=== PATIENT | male | born 1940 | race Caucasian/White ===

== ENCOUNTER → 2018-06-19 13:28 | Outpatient (CLI) | payer MEDICARE, SELFPAY ==
--- NOTE | 2018-06-19 13:47 | US_ITS ---
STUDY: SCROTUM ULTRASOUND REASON FOR EXAM: Male, 77 years old. Pain. TECHNIQUE: Ultrasound evaluation of the scrotum was performed with color Doppler and static baeza-scale imaging. COMPARISON: None. FINDINGS: RIGHT TESTICLE INTRATESTICULAR: There is a normal size of the right testicle. The right testicle measures 4.6 x 3.1 x 2.4 cm. There is a homogenous echotexture. There is normal arterial and normal venous vascularity. There is no demonstrated right testicular mass or cyst. EXTRATESTICULAR: The epididymis is enlarged and heterogeneous. The epididymis head measures 2.2 cm. There is increased (hyperemic) vascularity of the epididymis. There is no demonstrated epididymal cystic structure. There is a small hydrocele. There is no demonstrated varicocele. There is no demonstrated extratesticular mass or cyst. LEFT TESTICLE INTRATESTICULAR: There is a normal size of the left testicle. The left testicle measures 4.5 x 3.0 x 2.4 cm. There is a homogenous echotexture. There is normal arterial and normal venous vascularity. There is no demonstrated left testicular mass or cyst. EXTRATESTICULAR: The epididymis is normal in size. The epididymis head measures 1.2 cm. There is normal vascularity of the epididymis. There is no demonstrated epididymal cystic structure. There is a small hydrocele. There is no demonstrated varicocele. There is no demonstrated extratesticular mass or cyst. US/Testicular with Arterial Flow IMPRESSION: Normal bilateral testicles. Findings suggestive of right epididymitis. Small bilateral hydroceles. Electronically Signed: Rd Lomas MD at 14:50 EST , Service support ,
[2018-06-19 13:49] LABS: Absolute Lymphocyte Count 1.51 X10^3/ul (0.83-4.51); Absolute Neutrophil Count 3.1 X10^3/uL (2.0-7.7); Basophil# 0.02 X10^3/uL; Basophil% 0.4 % (0-1); Eosinophil# 0.35 X10^3/uL; Eosinophils% 6.4 % (0-5); Hematocrit 41.8 % (40-54); Hemoglobin 13.8 g/dl (13.0-16.5); Lymphocyte # 1.51 X10^3/ul (4.0); Lymphocyte % 27.8 % (19-41); Mean Corpuscular Hgb 30.9 pg (27.0-32.0); Mean Corpuscular Volume 93.7 fL (80-94); Mean Platelet Vol. 9.3 fl (6.2-12.0); Monocyte# 0.45 X10^3/uL; Monocyte% 8.3 % (0-10); Neutrophil # 3.09 X10^3/uL (2.7-7.7); Neutrophil % 56.9 % (47-70); Platelet Count 205 K/mm3 (150-450); RBC Distribution Width CV 13.7 % (11.6-14.6); RBC Distribution Width SD 46.6 fl (35.1-43.9); Red Blood Count 4.46 M/mm3 (4.6-6.2); White Blood Count 5.4 K/mm3 (4.4-11.0)
[2018-06-19 13:51] LABS: POSITIVE COUNT NO; POSITIVE DIFFERENTIAL NO; POSITIVE MORPHOLOGY NO
[2018-06-19 13:55] LABS: Erythrocyte Sedimentation Rate 12 mm/hr (0-20)
[2018-06-19 14:13] LABS: AST(SGOT) 24 U/L (15-37); Alanine Aminotransfer ALT/SGPT 25 U/L (16-61); Albumin, Serum 3.9 g/dL (3.2-5.0); Alkaline Phosphatase 100 U/L (45-117); Anion Gap 3 (5-15); BUN 12 mg/dL (7-18); BUN/Creat Ratio 13.7 RATIO (10-20); CRP < 2.90 mg/L (0.0-3.0); Calcium,Total 9.1 mg/dL (8.5-10.1); Chloride 105 mmol/L (98-107); Creatinine, Serum 0.88 mg/dL (0.70-1.30); EST Glomerular Filtration Rate 90 mL/min (>60); Est Glom Filt Rate - Afr Amer 108 mL/min (>60); Globulin 3.9 g/dL (2.2-4.2); Glucose 124 mg/dL (74-106); Potassium 4.2 mmol/L (3.5-5.1); Protein, Total 7.8 g/dL (6.4-8.2); Sodium Level 138 mmol/L (136-145)
== END ==
PROVIDERS: Family Provider Internal Medicine; PCP Internal Medicine; Referring Provider Nurse Practitioner Gerontology; Visit Provider Nurse Practitioner Gerontology
DX: N50.811 Right testicular pain (principal); R10.9 Unspecified abdominal pain
CPT/HCPCS: 36415; 76870; 80053; 85025; 85652; 86140; 93976

== ENCOUNTER → 2019-08-25 13:47 | Outpatient (CLI) | payer MEDICARE, SELFPAY ==
[2019-07-17 11:23] VITALS: BMI 28.0
--- NOTE | 2019-08-25 13:51 | US_ITS ---
STUDY: SCROTUM ULTRASOUND REASON FOR EXAM: Male, 78 years old. RT TESTICULAR PAIN TECHNIQUE: Ultrasound evaluation of the scrotum was performed with color Doppler and static baeza-scale imaging. COMPARISON: None. FINDINGS: RIGHT TESTICLE INTRATESTICULAR: There is a normal size of the right testicle. The right testicle measures 4.1 cm x 3.3 cm x 3.1 cm. There is a homogenous echotexture. There is normal arterial and normal venous vascularity. There is no demonstrated right testicular mass or cyst. EXTRATESTICULAR: The epididymis is normal in size. The epididymis head measures 1.6 cm x 1.1 cm x 1.0 cm. There is normal vascularity of the epididymis. There is no demonstrated epididymal cystic structure. There is a small hydrocele. There is no demonstrated varicocele. There is no demonstrated extratesticular mass or cyst. LEFT TESTICLE INTRATESTICULAR: There is a normal size of the left testicle. The left testicle measures 3.1 cm x 2.7 cm x 3.0 cm. There is a homogenous echotexture. There is normal arterial and normal venous vascularity. There is no demonstrated left testicular mass or cyst. EXTRATESTICULAR: The epididymis is normal in size. The epididymis head measures 1 cm x 1 cm x 0.8 cm. There is normal vascularity of the epididymis. There is no demonstrated epididymal cystic structure. There is a small hydrocele. There is no demonstrated varicocele. There is no demonstrated extratesticular mass or cyst. US/Testicular with Arterial Flow IMPRESSION: Small bilateral hydroceles. Electronically Signed: Sukhdeep Stewart, at 14:54 EST , Service support ,
--- NOTE | 2019-08-25 14:23 | CT_ITS ---
STUDY: CT ABDOMEN AND PELVIS WITHOUT CONTRAST REASON FOR EXAM: Male, 78 years old. PT STATED RT SIDE ABDOM PAIN, HX OF APPENDECTOMY RADIATION DOSAGE (If Supplied By Facility): CTDIvol = ( 10.31 ) mGy, DLP = ( 824.58 ) mGycm TECHNIQUE: Transaxial images were obtained from the dome of the diaphragm to the symphysis pubis without oral contrast, and without intravenous contrast. Sagittal and coronal images were reconstructed. Individualized dose optimization techniques were used for this CT. COMPARISON: Comparison is made with prior study dated December 04, 2013. FINDINGS: The visualized lung bases are unremarkable. Coronary artery calcification. Normal liver. There are multiple small gallstones. Normal spleen. Normal pancreas. Normal bilateral adrenal glands. Stable 2 cm cyst in the posterior medial aspect of the right kidney. There is a 3.2 cm x 3.5 cm cyst in the upper pole of the left kidney. Mild degree of left nonspecific perinephric stranding. Normal visualized stomach. Normal small intestine. There are multiple colonic diverticula consistent with diverticulosis. There are surgical clips in the region of the appendix consistent with a prior appendectomy. There is diffuse atherosclerotic calcification of the abdominal aorta. Mild dilatation of the distal abdominal aorta with a transverse dimension of 2.6 cm. Normal inferior vena cava. Normal retroperitoneum. Normal urinary bladder. There is enlargement of the prostate gland. It measures 4.2 cm x 5 cm. Small bilateral inguinal hernias containing fat. There are diffuse degenerative changes of the visualized lumbar spine. CT/Abdomen/Pelvis without Cont IMPRESSION: Stable examination. No acute abnormality is seen. Electronically Signed: Sukhdeep Stewart, at 14:51 EST , Service support ,
== END ==
PROVIDERS: PCP Internal Medicine; Referring Provider Nurse Practitioner; Visit Provider Nurse Practitioner
DX: N50.811 Right testicular pain (principal); R10.31 Right lower quadrant pain
CPT/HCPCS: 74176; 76870; 93976

== ENCOUNTER → 2019-12-14 11:19 | Outpatient (CLI) | payer MEDICARE, SELFPAY ==
[2019-11-30 10:59] VITALS: BMI 27.7
[2019-12-14 13:24] LABS: AST(SGOT) 26 U/L (15-37); Alanine Aminotransfer ALT/SGPT 30 U/L (16-61); Albumin, Serum 3.8 g/dL (3.2-5.0); Alkaline Phosphatase 109 U/L (45-117); Bilirubin, Direct 0.18 mg/dL (0.00-0.30); Cholesterol 144 mg/dL (200); Globulin 4.1 g/dL (2.2-4.2); High Density Lipoprotein 37 mg/dL; Protein, Total 7.9 g/dL (6.4-8.2); Triglycerides 72 mg/dL; Very Low Density Lipoprotein 14 mg/dL (5-40)
== END ==
PROVIDERS: PCP Internal Medicine; Referring Provider Internal Medicine Cardiovascular Disease; Visit Provider Internal Medicine Cardiovascular Disease
DX: E78.00 Pure hypercholesterolemia, unspecified (principal)
CPT/HCPCS: 36415; 80061; 80076

== ENCOUNTER → 2020-09-16 11:22 | Outpatient (CLI) | payer MEDICARE, SELFPAY ==
[2020-09-15 11:30] VITALS: BMI 25.2
--- NOTE | 2020-09-16 10:06 | RAD_ITS ---
STUDY: X-RAY CHEST REASON FOR EXAM: Male, 79 years old. Chest pain, pre-operative TECHNIQUE: PA and lateral views of the chest. COMPARISON: None. FINDINGS: There is hyperinflation of the lungs consistent with chronic obstructive lung disease (COPD). There is no demonstrated pleural abnormality. Normal size heart. Normal mediastinum and valente. There is prominence of the pulmonary hilar arteries without peripheral pulmonary vascular congestion, suggesting pulmonary hypertension. There is atherosclerotic calcification of the aortic arch with tortuosity. There are diffuse degenerative changes of the visualized thoracic spine. Normal visualized ribs, clavicles, and shoulders. There is no demonstrated abnormality of the visualized soft tissue structures of the upper abdomen. RAD/Chest PA and Lateral IMPRESSION: Hyperinflation. Findings in keeping with COPD. Electronically Signed: Sukhdeep Stewart MD at 12:52 EST , Service support ,
[2020-09-16 10:18] LABS: Absolute Lymphocyte Count 1.12 X10^3/uL (0.83-4.51); Basophil# 0.02 X10^3/uL; Basophil% 0.5 % (0-1); Eosinophil# 0.17 X10^3/uL; Eosinophils% 4.4 % (0-5); Hematocrit 39.1 % (40-54); Hemoglobin 13.5 g/dL (13.0-16.5); Lymphocyte # 1.12 X10^3/ul (4.0); Lymphocyte % 29.2 % (19-41); Mean Corp Hgb Conc 34.5 g/dL (32-36); Mean Corpuscular Hgb 33.9 pg (27.0-32.0); Mean Corpuscular Volume 98.2 fL (80-94); Mean Platelet Vol. 9.6 fl (6.2-12.0); Monocyte# 0.53 X10^3/uL; Monocyte% 13.8 % (0-10); NRBC Flagged by Analyzer 0 % (0-5); Neutrophil # 1.99 X10^3/uL (2.7-7.7); Neutrophil % 51.8 % (47-70); Platelet Count 169 K/mm3 (150-450); RBC Distribution Width SD 48.7 fl (35.1-43.9); Red Blood Count 3.98 M/mm3 (4.6-6.2); White Blood Count 3.8 K/mm3 (4.4-11.0)
[2020-09-16 10:27] LABS: International Normalized Ratio 1.1; Prothrombin Time (Protime)PT. 13.5 SECONDS (11.7-14.9)
[2020-09-16 10:28] LABS: Partial Thromboplast Time 34.5 Seconds (24.1-36.2)
[2020-09-16 10:47] LABS: Anion Gap 5 (5-15); BUN 12 mg/dL (7-18); BUN/Creat Ratio 13.3 RATIO (10-20); Calcium,Total 9.3 mg/dL (8.5-10.1); Chloride 107 mmol/L (98-107); EST Glomerular Filtration Rate 86 mL/min (>60); Est Glom Filt Rate - Afr Amer 104 mL/min (>60); Glucose 106 mg/dL (74-106); Potassium 4.1 mmol/L (3.5-5.1); Sodium Level 140 mmol/L (136-145)
[2020-09-20 12:41] VITALS: BMI 25.2
== END ==
PROVIDERS: Nurse Practitioner Family; PCP Internal Medicine; Referring Provider Internal Medicine Cardiovascular Disease; Visit Provider Internal Medicine Cardiovascular Disease
DX: Z01.812 Encounter for preprocedural laboratory examination (principal); I25.10 Atherosclerotic heart disease of native coronary artery without angina pectoris; E78.00 Pure hypercholesterolemia, unspecified; I10 Essential (primary) hypertension; Z79.899 Other long term (current) drug therapy; R07.9 Chest pain, unspecified
CPT/HCPCS: 36415; 71046; 80048; 85025; 85610; 85730

== ENCOUNTER → 2020-09-20 14:43 | Outpatient (CLI) | payer OTHER, SELFPAY ==
[2020-09-15 11:30] VITALS: BMI 25.2
== END ==
PROVIDERS: PCP Internal Medicine; Visit Provider Internal Medicine Cardiovascular Disease
DX: Z01.818 Encounter for other preprocedural examination (principal); R68.83 Chills (without fever); R53.1 Weakness; R53.83 Other fatigue
CPT/HCPCS: 87635; C9803; U0002

== ENCOUNTER → 2020-10-11 06:34 | Outpatient (CLI) | payer MEDICARE, SELFPAY ==
[2020-09-20 12:41] VITALS: BMI 25.2
--- NOTE | 2020-10-11 08:48 | STRESSREP ---
Stress Test Report Date: Procedure: Exercise tolerance test/imaging study Indications: Chest pain/shortness of breath/dyspnea; CAD; MVP; peripheral arterial occlusive disease Consent: Per the patient Procedure: The patient exercised on a Sandeep protocol for 7 minutes completing Stage II and 1 minute of Stage III achieving a peak heart rate of 142 bpm (100% predicted maximal heart rate) with a peak blood pressure 160/80 mmHg and a peak MET capacity of 8 METs. The baseline ECG demonstrated sinus bradycardia. The peak exercise ECG demonstrated approximately 1 to 2 mm of horizontal/downsloping ST segment depression in leads II, III, aVF, and V4 through V6 with gradual resolution towards baseline in recovery. There was an isolated PVC during exercise. The functional capacity was considered. There was no complaint of chest discomfort during exercise or recovery. The examination was discontinued secondary to dyspnea. Impression: 1. Technically adequate (percent predicted maximal heart rate greater than 85%) exercise tolerance test 2. Peak exercise ECG demonstrated approximately 1 to 2 mm of horizontal/downsloping ST segment depression in leads II, III, aVF, and V4 through V6 with gradual resolution towards baseline in recovery 3. There was an isolated PVC during exercise 4. Nuclear images pending Myocardial perfusion imaging study: Technique: The patient was injected with mCi of technetium 99m Cardiolite and subsequently rest SPECT Cardiolite nuclear imaging was obtained in the horizontal long, vertical long, and short axis views. The patient exercised on a Sandeep protocol for 7 minutes completing Stage II and 1 minute of Stage III achieving a peak heart rate of 142 bpm (100% predicted maximal heart rate) with a peak blood pressure 160/80 mmHg and a peak MET capacity of 8 METs. The patient was injected with mCi of technetium 99m Cardiolite and subsequently stress SPECT Cardiolite nuclear imaging was obtained in the horizontal long, vertical long, and short axis views. A gated Cardiolite study at peak stress was obtained. Interpretation: Rest and stress SPECT Cardiolite nuclear imaging status post realignment, normalization, and attenuation correction, demonstrates the appearance of relative uniform tracer uptake and myocardial perfusion appearing within normal limits. There is end systolic thickening and brightening. The gated Cardiolite study demonstrates myocardial thickening and inward wall motion. The reported LVEF is 65%. Impression: 1. Rest and stress SPECT Cardiolite nuclear imaging demonstrate relative uniform tracer uptake and myocardial perfusion appearing within normal limits. 2. The gated Cardiolite study reports an LVEF of 65%. This note was generated with [employer] software. It may contain incorrect words, spelling, and punctuation that were not noted in checking the note before signing.
== END ==
PROVIDERS: PCP Internal Medicine; Referring Provider Nurse Practitioner Family; Visit Provider Nurse Practitioner Family
DX: I25.10 Atherosclerotic heart disease of native coronary artery without angina pectoris (principal); R07.9 Chest pain, unspecified; I10 Essential (primary) hypertension; E78.00 Pure hypercholesterolemia, unspecified; I49.3 Ventricular premature depolarization; Z79.899 Other long term (current) drug therapy
CPT/HCPCS: 78452; 93017; A9500; A4216

== ENCOUNTER → 2020-11-22 13:50 | Outpatient (CLI) | payer OTHER, SELFPAY ==
[2020-11-07 10:00] VITALS: BMI 25.7
--- NOTE | 2020-11-22 13:53 | ECHOD_ITS ---
Reason For Study: SOB Procedure This was a 2D Doppler, Color Flow transthoracic echocardiogram. The study was technically difficult. Exam performed in department. Left Ventricle Normal LV size. Left ventricular systolic function is normal. The estimated ejection fraction is 65 %. No evidence for diastolic dysfunction. No regional wall motion abnormalities noted. Right Ventricle Normal RV size. Normal systolic function. Atria Normal left atrium. Normal right atrium. No doppler evidence for ASD. Mitral Valve There is no mitral annular calcification. Normal mitral valve. Trivial mitral valve insufficiency. Tricuspid Valve Normal tricuspid valve. Mild tricuspid valve insufficiency. Right ventricular systolic pressure estimated to be 21 mmHg. Aortic Valve Trisinus/trileaflet aortic valve. Normal aortic valve. Trivial aortic valve insufficiency. Pulmonic Valve The pulmonic valve is not well visualized. Trivial pulmonic valve insufficiency. Great Vessels Normal sized aortic root. Pericardium/Pleural No pericardial effusion. MMode/2D Measurements & Calculations LVIDd: 4.2 cm IVSd: 1.1 cm Ao root diam: 3.0 cm LVIDs: 2.3 cm LVPWd: 1.0 cm RVDd: 3.2 cm FS: 44.7 % LAV(MOD-bp): 35.9 ml LA A4 area: 12.9 cm2 LA dimension(2D): 3.5 cm LAV(MOD-bp) Indexed: 18.8 ml/m2 LAV(MOD-sp2): 43.9 ml LAV(MOD-sp4): 29.4 ml RA A4 area: 14.6 cm2 Doppler Measurements & Calculations MV E max buster: 61.8 cm/sec Lat Peak E' Buster: 5.2 cm/sec Med Peak E' Buster: 6.7 cm/sec MV A max buster: 105.1 cm/sec E/E' lat: 12.0 E/E' med: 9.2 MV E/A: 0.59 Ao V2 max: 148.6 cm/sec LV V1 max: 112.5 cm/sec PA V2 max: 138.5 cm/sec Ao max P.8 mmHg LV V1 max P.1 mmHg TR max buster: 213.6 cm/sec TR max P.4 mmHg ECHO/Echo Complete Interpretation Summary The study was technically difficult. Left ventricular systolic function is normal. The estimated ejection fraction is 65 %. Trivial mitral valve insufficiency. Mild tricuspid valve insufficiency. Trivial aortic valve insufficiency. Trivial pulmonic valve insufficiency. Right ventricular systolic pressure estimated to be 21 mmHg. No evidence for diastolic dysfunction. Ordering Physician: Bonilla Reyes/Dhaval Armenta Referring Physician: Radha Olivas M.D. Performed By: Bianca Du RDCS
== END ==
PROVIDERS: PCP Internal Medicine; Referring Provider Nurse Practitioner Family; Visit Provider Nurse Practitioner Family
DX: I25.10 Atherosclerotic heart disease of native coronary artery without angina pectoris (principal); E78.00 Pure hypercholesterolemia, unspecified; I10 Essential (primary) hypertension; I05.9 Rheumatic mitral valve disease, unspecified; R06.00 Dyspnea, unspecified; R06.02 Shortness of breath
CPT/HCPCS: 93306

== ENCOUNTER 2021-03-17 13:14 | Emergency (ER) | payer MEDICARE, SELFPAY ==
[2021-03-17 13:15] VITALS: BP 151/77; PULSE 61; RESP 20; TEMP 36.8; BMI 25.2
--- NOTE | 2021-03-17 14:18 | ED.VIS.GI ---
HPI HPI - GI History of Present Illness Chief Complaint: Constipation Informant: patient Abdominal Pain/Flank Pain Onset: Yesterday Context: Gradual Onset Timing: Continuous Quality: Aching Location: - (Rectal pain) Current Severity: Mild Maximum Severity: Moderate Worsened by: - (Type had a bowel movement and attempt at self disimpaction) Relieved by: Nothing Nausea/Vomiting/Emesis GI Symptom: Negative for Nausea and Vomiting Diarrhea/Melena/Hematochezia GI Symptom: Negative for Diarrhea, Melena and Hematochezia Associated Symptoms Associated Symptoms: Negative for Dysuria, Frequency and Hematuria Narrative Narrative: Patient is an elderly male who presents with abdominal distention, bloating and inability to have a bowel movement. He is passing gas. He is status post appendectomy. Not on anticoagulant. He has no other complaints. Prior similar symptoms: Yes Recent Illness/Hospitalization: No PFSH PFS Medical History (Updated 03/17/21 @ 14:[address] Alexis Lopez MD) Abdominal aortic aneurysm (AAA) Adverse drug reaction Atherosclerotic heart disease of [place] coronary artery without angina pectoris Atherosclerotic heart disease of [place] coronary artery without angina pectoris Back pain CAD (coronary artery disease) Coronary atherosclerosis of [place] coronary vessel Essential hypertension Family history of CVA Hay fever History of left heart catheterization (LHC) (~10/24/99) Hyperlipidemia Hypertension Limb weakness Long-term use of high-risk medication Mitral valve disorder ASHLEY (obstructive sleep apnea) Premature ventricular contraction Pure hypercholesterolemia Home Medications aspirin 81 mg PO DAILY@0800 04/28/13 [History Last Taken 05/03/13 22:00 1] nitroglycerin 0.4 mg sublingual tablet 0.4 mg SL Q5-15M PRN #25 tab 11/30/19 [Rx Last Taken Unknown] lisinopril 5 mg tablet 5 mg PO DAILY #90 tab 03/14/20 [Rx Last Taken Unknown] isosorbide mononitrate 30 mg tablet,extended release 24 hr 30 mg PO DAILY #90 tablet 10/04/20 [Rx Last Taken Unknown] atenolol 25 mg tablet 25 mg PO DAILY tablet 11/07/20 [History Last Taken Unknown] simvastatin 40 mg tablet See Rx Instructions .ROUTE .COMPLEX #90 tablet 11/21/20 [Rx Last Taken Unknown] Allergy/AdvReac Type Severity Reaction Status Date / Time ciprofloxacin [From Cipro] Allergy Hives Verified 11/07/20 10:06 atorvastatin [From Lipitor] AdvReac Intermediate Myalgias Verified 11/07/20 10:06 lovastatin [From Mevacor] AdvReac Intermediate Myalgias Verified 11/07/20 10:06 Family History Father CAD (coronary artery disease) Diabetes Cancer prostate Sister CVA (cerebral vascular accident) Mother Emphysema, unspecified Surgical History History of cystoscopy History of hernia surgery Hx of appendectomy Social History (Updated 03/17/21 @ 14:[address] Alexis Lopez MD) household members: spouse Smoking Status: Never smoker how long ago did patient quit smokin years ago alcohol intake: current details: rare substance use type: does not use caffeine: Yes Type: coffee Number of servings: 1 ROS ROS ED Constitutional Constitutional ED: Denies chills, fever(s) or subjective ENT ENT ED: Denies ear pain or rhinorrhea Cardiovascular Cardiovascular: Denies chest pain or palpitations Respiratory/Chest Respiratory/Chest: Denies cough or dyspnea Gastrointestinal Gastrointestinal: Reports abdominal pain and constipation; Denies diarrhea, melena, nausea or vomiting Genitourinary Genitourinary ED: Denies dysuria, hematuria or urinary frequency Neurologic Neurologic: Denies paresthesias or weakness Hematologic/Lymphatic Hematologic/Lymphatic: Denies easy bleeding or easy bruising EXAM Physical Exam Const Vital Signs: 03/17/21 13:15 Temperature 98.2 F Temperature Source Temporal Pulse Rate 61 Respiratory Rate 20 H Blood Pressure 151/77 H Blood Pressure Mean 101 Positive well nourished and well developed General Appearance ED: well developed HEENT normocephalic and atraumatic Eyes PERRL and EOMs intact bilaterally General Eye ED: Negative for pale conjunctiva or scleral icterus Neck no lymphadenopathy, supple and no JVD Resp normal respiratory effort and clear to auscultation bilaterally Cardio regular rate, regular rhythm, S1 normal heart sound, S2 normal heart sound and no murmurs GI no masses; Negative for non-tender or non-distended GI Narrative: Patient has no fissures, fistulas or hemorrhoids. Digital exam reveals brown stool. He is impacted. Inspection: abdominal distention Auscultation: hypoactive bowel sounds; Negative for normoactive bowel sounds Palpation: soft and tender; Negative for guarding, rigid or rebound tenderness present Back/Spine no CVA tenderness Cervical Spine: Negative for cervical spine tenderness Thoracic Spine / Upper Back: Negative for thoracic spinal tenderness Lumbar Spine / Lower Back: Negative for lumbar spinal tenderness Extremity full ROM General Extremety ED: Negative for edema General Extremity: Negative for edema Neuro CN's II-XII intact bilaterally and no sensory deficits noted Sensorium / Orientation: alert, oriented to person, oriented to place and oriented to time Motor Exam: strength 5/5 throughout Psych mental status grossly normal and thought process normal Skin no wounds Lesions: no lesions Rashes: no rashes MDM MDM MDM Narrative Medical decision making narrative: Patient head is a fecal impaction. He reports watery stools most likely due to encopresis. Since patient has brown stool is impacted he was digitally disimpacted. He will be discharged to home. Discharge Plan Triage Chief Complaint: Constipation ED Provider: Alexis Lopez Dx/Rx/DC Orders Clinical Impression: Fecal impaction in rectum Instructions: ED Fecal Impaction, Treated Prescriptions: No Action nitroglycerin 0.4 mg tablet, sublingual 0.4 mg SL Q5-15M PRN (Reason: chest pain) Qty: 25 RF: 3 atenolol 25 mg tablet 25 mg PO DAILY RF: 0 aspirin 81 MG tablet 81 mg PO DAILY@0800 RF: 0 lisinopril 5 mg tablet 5 mg PO DAILY Qty: 90 RF: 3 isosorbide mononitrate 30 mg tablet extended release 24 hr 30 mg PO DAILY Qty: 90 RF: 3 simvastatin 40 mg tablet See Rx Instructions .ROUTE .COMPLEX Qty: 90 RF: 3 Primary Care Provider: Radha Olivas Referrals: Radha Olivas, [Primary Care Provider] - 3-5 Days if not improving Activity Restrictions/Additional Instructions: 1. Metamucil or MiraLAX 3 times a day for the next week 2. Starting the second week recommend MiraLAX or Metamucil twice a day Disposition Disposition: Home, Self Care
[2021-03-17 14:34] VITALS: RESP 18
== END 2021-03-17 14:40 | disposition home or self-care (01) ==
LOC: ED 14:32
PROVIDERS: Emergency Provider Emergency Medicine; PCP Internal Medicine
DX: K56.41 Fecal impaction (principal); I25.10 Atherosclerotic heart disease of native coronary artery without angina pectoris; I10 Essential (primary) hypertension; E78.5 Hyperlipidemia, unspecified; G47.33 Obstructive sleep apnea (adult) (pediatric); E78.00 Pure hypercholesterolemia, unspecified; Z79.82 Long term (current) use of aspirin; Z90.49 Acquired absence of other specified parts of digestive tract; Z79.899 Other long term (current) drug therapy; Z87.891 Personal history of nicotine dependence
CPT/HCPCS: 99282

== ENCOUNTER 2021-08-31 07:14 | Outpatient (CLI) | payer MEDICARE, SELFPAY ==
--- NOTE | 2021-08-31 07:33 | CT_ITS ---
EXAM: CT NECK WITH INTRAVENOUS CONTRAST : 1940 CLINICAL INDICATION: CHEEK MASS -- . TECHNIQUE: Helically acquired images were obtained of the neck with intravenous contrast. This CT exam was performed using one or more of the following dose reduction techniques: automated exposure control, adjustment of the mA and/or kV according to patient size, and/or use of iterative reconstruction technique. This report was created using [employer] report generation technology. CONTRAST: IV 100mL Isovue-300 COMPARISON: November 19, 2011 FINDINGS: NASOPHARYNX: Unremarkable. SUPRAHYOID NECK: Unremarkable. Oropharynx, oral cavity, parapharyngeal space and retropharyngeal space are unremarkable. INFRAHYOID NECK: Unremarkable. The larynx, hypopharynx and supraglottis are unremarkable. SUBMANDIBULAR/PAROTID GLANDS: Unremarkable. Glands are normal in size. THYROID: Unremarkable. No enlarged or calcified nodules. BONES/JOINTS: No acute fracture. SOFT TISSUES: Unremarkable. VASCULATURE: No acute findings. LYMPH NODES: Unremarkable. No lymphadenopathy. LUNG APICES: Unremarkable as visualized. CT/Soft Tissue Neck WITH Contrast IMPRESSION: 1. No evidence of soft tissue mass. 2. Unremarkable soft tissues of the neck. Individualized dose optimization techniques were used for this CT. at 1130 Reported and signed by: Junior Morse MD Electronically Signed: Junior Morse MD at 11:28 EST ,
[2021-08-31 07:37] LABS: Absolute Lymphocyte Count 1.27 X10^3/uL (0.83-4.51); Absolute Neutrophil Count 1.6 X10^3/uL (2.0-7.7); Basophil# 0.02 X10^3/uL; Basophil% 0.6 % (0-1); Eosinophil# 0.14 X10^3/uL; Eosinophils% 3.9 % (0-5); Hematocrit 40.2 % (40-54); Hemoglobin 13.3 g/dL (13.0-16.5); Lymphocyte # 1.27 X10^3/ul (0.83-4.51); Lymphocyte % 35.5 % (19-41); Mean Corp Hgb Conc 33.1 g/dL (32-36); Mean Corpuscular Hgb 32.8 pg (27.0-32.0); Mean Platelet Vol. 9.2 fl (6.2-12.0); Monocyte# 0.57 X10^3/uL; Monocyte% 15.9 % (0-10); NRBC Flagged by Analyzer 0 % (0-5); Neutrophil # 1.57 X10^3/uL (2.7-7.7); Neutrophil % 43.8 % (47-70); Platelet Count 162 K/mm3 (150-450); RBC Distribution Width CV 13.6 % (11.6-14.6); RBC Distribution Width SD 49.7 fl (35.1-43.9); Red Blood Count 4.06 M/mm3 (4.6-6.2); White Blood Count 3.6 K/mm3 (4.4-11.0)
[2021-08-31 07:45] LABS: CREATININE FINGERSTICK 0.9 mg/dL (0.70-1.30); EGFR FINGERSTICK > 60.0000 mL/min (>60)
[2021-08-31 08:05] LABS: Anion Gap 3 (5-15); BUN 15 mg/dL (7-18); BUN/Creat Ratio 15.2 RATIO (10-20); Calcium,Total 9.1 mg/dL (8.5-10.1); Chloride 107 mmol/L (98-107); Creatinine, Serum 0.98 mg/dL (0.70-1.30); EST Glomerular Filtration Rate 78 mL/min (>60); Est Glom Filt Rate - Afr Amer 94 mL/min (>60); Glucose 120 mg/dL (74-106); Potassium 3.8 mmol/L (3.5-5.1); Sodium Level 138 mmol/L (136-145)
== END 2021-08-31 23:59 | disposition home or self-care (01) ==
LOC: CT 07:21
PROVIDERS: PCP Internal Medicine; Referring Provider Internal Medicine; Visit Provider Internal Medicine
DX: R22.0 Localized swelling, mass and lump, head (principal)
CPT/HCPCS: 36415; 70491; 80048; 85025; Q9967

== ENCOUNTER 2021-09-25 10:46 | Outpatient (CLI) | payer MEDICARE, SELFPAY ==
--- NOTE | 2021-09-26 | ASPOS_PTH ---
PATIENT: YAIR MCCORD LOC: [facility] U#:[id number] AGE/SX: 80/M ROOM: RE09/25/[address]: Dr. Chance Luz MD : 1940 BED: DIS: 09/25/2021 SPEC #: [id number] RECD: 09/26/21 10:46 STATUS: ALEX HEMPHILL #: [id number] JACQUES: 09/26/21 00:[address]: Chance Luz DEPT: CYTOLOGY RECD BY: John Aguero ENTERED: 09/26/21 10:47 SP TYPE: ASP HERE OTHR DR: Dr. Radha Olivas, DO Tissues: Parotid gland, NOS Procedures: Surgery Specimen Level IV Cytology Other Fine Needle Asp on Site HEADER OPERATION: Left parotid mass, fine needle aspiration PRE-OP DIAGNOSIS: Left parotid mass TISSUE SUBMITTED: Left parotid mass DIAGNOSIS CYTOLOGY Fine needle aspiration, left parotid mass (smears and cell block): Chronic inflammation. Crystalloid debris. Negative for malignant cells. See comment. AM:tsering 09/27/2021 COMMENT The specimen is evaluated at the time of FNA by Dr. Santoyo. Immediate Evaluation = Mild chronic inflammation. The smears contain mild chronic inflammatory cells associated with benign salivary gland tissue. In the background, there is abundant crystalloid debris consistent with amylase crystalloids. The findings are suggestive of sialadenitis and possibly associated cyst. Clinical correlation is suggested. CYTOLOGY STUDY Slides are reviewed. CYTOLOGY GROSS Received is 0.25 ml of yellow material labeled with the patient's name, and designated left parotid mass. Four imprints and two paps are made from the submitted fluid and the rest is added to CytoLyt for cell block preparation. Submitted for cytology study. / AM:tsering 09/26/2021 TC:3 CPT: 74801, 42467, 64105, 20221
== END 2021-09-25 23:59 | disposition home or self-care (01) ==
LOC: LAB 09-27 08:48
PROVIDERS: PCP Internal Medicine; Referring Provider Otolaryngology; Visit Provider Otolaryngology
DX: R22.0 Localized swelling, mass and lump, head (principal)
CPT/HCPCS: 10021; 88161; 88305

== ENCOUNTER 2021-10-04 13:56 | Outpatient (CLI) | payer MEDICARE, SELFPAY ==
[2021-10-04 14:36] LABS: Absolute Lymphocyte Count 1.33 X10^3/uL (0.83-4.51); Absolute Neutrophil Count 7.3 X10^3/uL (2.0-7.7); Basophil# 0.01 X10^3/uL; Basophil% 0.1 % (0-1); Eosinophils% 0.9 % (0-5); Hematocrit 40.2 % (40-54); Hemoglobin 13.7 g/dL (13.0-16.5); Lymphocyte # 1.33 X10^3/ul (0.83-4.51); Mean Corp Hgb Conc 34.1 g/dL (32-36); Mean Corpuscular Hgb 32.9 pg (27.0-32.0); Mean Corpuscular Volume 96.6 fL (80-94); Mean Platelet Vol. 9.8 fl (6.2-12.0); Monocyte# 2.29 X10^3/uL; Monocyte% 20.7 % (0-10); NRBC Flagged by Analyzer 0 % (0-5); Neutrophil # 7.29 X10^3/uL (2.7-7.7); Neutrophil % 65.8 % (47-70); POSITIVE DIFFERENTIAL YES; Platelet Count 166 K/mm3 (150-450); RBC Distribution Width CV 13.8 % (11.6-14.6); Red Blood Count 4.16 M/mm3 (4.6-6.2); White Blood Count 11.1 K/mm3 (4.4-11.0)
[2021-10-04 14:38] LABS: Differential Indicated SCAN CRITERIA MET
[2021-10-04 15:47] LABS: Thyroid Stim Hormone (TSH) 0.74 uIU/mL (0.358-3.74)
[2021-10-06 11:41] LABS: Pathologist Review Reviewed
== END 2021-10-04 23:59 | disposition home or self-care (01) ==
PROVIDERS: Nurse Practitioner Family; PCP Internal Medicine; Visit Provider Internal Medicine
DX: R06.00 Dyspnea, unspecified (principal); R53.83 Other fatigue; I25.10 Atherosclerotic heart disease of native coronary artery without angina pectoris; E78.00 Pure hypercholesterolemia, unspecified; I10 Essential (primary) hypertension; R22.0 Localized swelling, mass and lump, head
CPT/HCPCS: 36415; 83880; 84439; 84443; 85025

== ENCOUNTER → 2022-05-19 | Outpatient (CLI) | payer MEDICARE, SELFPAY ==
[2022-05-19 07:50] LABS: Absolute Lymphocyte Count 1.07 X10^3/uL (0.83-4.51); Absolute Neutrophil Count 1.5 X10^3/uL (2.0-7.7); Basophil# 0.01 X10^3/uL; Basophil% 0.3 % (0-1); Hematocrit 37.9 % (40-54); Hemoglobin 12.7 g/dL (13.0-16.5); Lymphocyte # 1.07 X10^3/ul (0.83-4.51); Lymphocyte % 31.8 % (19-41); Mean Corp Hgb Conc 33.5 g/dL (32-36); Mean Corpuscular Hgb 33.6 pg (27.0-32.0); Mean Corpuscular Volume 100.3 fL (80-94); Mean Platelet Vol. 9.5 fl (6.2-12.0); Monocyte# 0.64 X10^3/uL; NRBC Flagged by Analyzer 0 % (0-5); Neutrophil # 1.52 X10^3/uL (2.7-7.7); Neutrophil % 45.3 % (47-70); Platelet Count 134 K/mm3 (150-450); RBC Distribution Width CV 13.8 % (11.6-14.6); RBC Distribution Width SD 51.5 fl (35.1-43.9); Red Blood Count 3.78 M/mm3 (4.6-6.2); White Blood Count 3.4 K/mm3 (4.4-11.0)
[2022-05-19 08:06] LABS: Erythrocyte Sedimentation Rate 22 mm/hr (0-20)
[2022-05-19 08:24] LABS: AST(SGOT) 21 U/L (15-37); Alanine Aminotransfer ALT/SGPT 20 U/L (16-61); Albumin, Serum 3.9 g/dL (3.2-5.0); Alkaline Phosphatase 98 U/L (45-117); Anion Gap 5 (5-15); BUN 20 mg/dL (7-18); BUN/Creat Ratio 24.6 RATIO (10-20); CRP < 2.90 mg/L (0.0-3.0); Calcium,Total 9.4 mg/dL (8.5-10.1); Chloride 109 mmol/L (98-107); Creatinine, Serum 0.81 mg/dL (0.70-1.30); EST Glomerular Filtration Rate 97 mL/min (>60); Est Glom Filt Rate - Afr Amer 117 mL/min (>60); Ferritin 51 ng/mL (26-388); Globulin 3.9 g/dL (2.2-4.2); Glucose 108 mg/dL (74-106); Iron 103 ug/dL (65-175); Iron Binding Capacity,Total 305 ug/dL (250-450); Potassium 3.8 mmol/L (3.5-5.1); Protein, Total 7.8 g/dL (6.4-8.2); Sodium Level 141 mmol/L (136-145); Thyroid Stim Hormone (TSH) 4.01 uIU/mL (0.358-3.74)
[2022-05-21 08:16] LABS: Vitamin B12 808 pg/mL (211-911)
== END | disposition home or self-care (01) ==
LOC: LAB 06:59
PROVIDERS: PCP Internal Medicine; Referring Provider Internal Medicine; Visit Provider Internal Medicine
DX: R53.83 Other fatigue (principal); E61.1 Iron deficiency
CPT/HCPCS: 36415; 80053; 82607; 82728; 83540; 83550; 84443; 85025; 85652; 86140

== ENCOUNTER 2022-05-20 09:28 | Emergency (ER) | payer OTHER, SELFPAY ==
[2022-05-20 09:29] VITALS: BP 140/68; PULSE 58; RESP 18; TEMP 36.2; O2SAT 100; BMI 24.7
[2022-05-20] MEDS: 0.9% Normal Saline 1,000 ML 999 ML IV (10:18)
--- NOTE | 2022-05-20 10:57 | ED.VIS.GI ---
HPI HPI - GI History of Present Illness Chief Complaint: Abd Pain Narrative Narrative: 81-year-old male presenting with right lower abdominal pain. He states this has been going on for about 24 hours. The pain comes and goes. He has not had any fever. No nausea or vomiting. He admits to occasional constipation for which she takes prune juice for. He is having bowel movements. He does not have any urinary complaints. He states he has distant history of kidney stone but has not had one in 12 or 13 years he believes. He does admit to intermittent nausea. Patient has history of appendectomy and hernia repair in the right lower abdomen. No history of bowel obstruction but does have history of fecal impaction. Patient states he had outpatient lab work drawn yesterday because he has been generally weak for months now. He has felt a little bit lightheaded at times. He states that the blood work showed that he had a little bit of anemia. [facility] Medical History Abdominal aortic aneurysm (AAA) Adverse drug reaction Atherosclerotic heart disease of [place] coronary artery without angina pectoris Atherosclerotic heart disease of [place] coronary artery without angina pectoris Back pain CAD (coronary artery disease) Coronary atherosclerosis of [place] coronary vessel Essential hypertension Family history of CVA Hay fever History of left heart catheterization (LHC) (~10/24/99) Hyperlipidemia Hypertension Limb weakness Long-term use of high-risk medication Mitral valve disorder ASHLEY (obstructive sleep apnea) Premature ventricular contraction Pure hypercholesterolemia Home Medications aspirin 81 mg tablet,delayed release 81 mg PO DAILY@0800 04/28/13 [History Last Taken 05/03/13 22:00 1] nitroglycerin 0.4 mg sublingual tablet 0.4 mg sublingual Q5-15M PRN chest pain #25 tabs 11/30/19 [Rx Last Taken Unknown] atenolol 25 mg tablet 25 mg PO DAILY #15 tabs 10/11/21 [Rx Last Taken Unknown] isosorbide mononitrate 30 mg tablet,extended release 24 hr 30 mg PO DAILY #90 tabs 10/11/21 [Rx Last Taken Unknown] multivitamin (Daily Multi-Vitamin tablet) 1 tab PO DAILY 02/01/22 [History Last Taken Unknown] lisinopril 5 mg tablet 5 mg PO DAILY #90 tabs 04/30/22 [Rx Last Taken Unknown] simvastatin 40 mg tablet 40 mg PO QHS 05/20/22 [History Last Taken Unknown] Allergy/AdvReac Type Severity Reaction Status Date / Time ciprofloxacin [From Cipro] Allergy Hives Verified 05/20/22 09:32 atorvastatin [From Lipitor] AdvReac Intermediate Myalgias Verified 05/20/22 09:32 lovastatin [From Mevacor] AdvReac Intermediate Myalgias Verified 05/20/22 09:32 Family History Father CAD (coronary artery disease) Diabetes Cancer prostate Sister CVA (cerebral vascular accident) Mother Emphysema, unspecified Surgical History History of cystoscopy History of hernia surgery Hx of appendectomy Social History household members: spouse Smoking Status: Never smoker how long ago did patient quit smokin years ago alcohol intake: current details: rare substance use type: does not use caffeine: Yes Type: coffee Number of servings: 1 ROS ROS ED Constitutional Constitutional ED: Denies chills or fever(s) ENT ENT ED: Denies rhinorrhea or sore throat Cardiovascular Cardiovascular: Denies chest pain or palpitations Respiratory/Chest Respiratory/Chest: Denies cough or dyspnea Gastrointestinal Gastrointestinal: Reports abdominal pain and nausea; Denies constipation, diarrhea or vomiting Genitourinary Genitourinary ED: Denies dysuria or hematuria Musculoskeletal Musculoskeletal: Denies arthralgias or back pain Integumentary Denies abscess Neurologic Neurologic: Denies headache(s) or paresthesias Psychiatric Psychiatric: Denies anxiety or depression EXAM Physical Exam Const Vital Signs: 05/20/22 09:29 Temperature 97.1 F L Temperature Source Temporal Pulse Rate 58 L Respiratory Rate 18 Blood Pressure 140/68 H Blood Pressure Mean 92 Pulse Ox 100 Oxygen Delivery Method Room Air Positive well nourished General Appearance ED: NAD; Negative for pallor HEENT Reports moist mucous membranes and dry mucous membranes normocephalic Mouth ED: Yes dry mucous membranes Mouth: dry mucous membranes Eyes PERRL and EOMs intact bilaterally Resp normal respiratory effort Cardio regular rate and regular rhythm GI non-tender, non-distended and no masses Back/Spine no CVA tenderness Neuro CN's II-XII intact bilaterally, moves all extremities and no sensory deficits noted Sensorium / Orientation: alert Psych mental status grossly normal and thought process normal Skin General Skin Exam: Negative for jaundice or pallor MDM MDM MDM Narrative Medical decision making narrative: Reviewed patient's blood work from yesterday. His white blood cell count 3.4 hemoglobin is 12.7, hematocrit 37.9, platelets 134. Creatinine was normal at 0.8, electrolytes unremarkable. Urinalysis negative for infection or occult blood. I did a CT of the abdomen pelvis IV contrast which shows no acute findings in the abdomen. This was discussed with the patient. At this point with a negative work-up I think he stable for discharge home. Return precautions were discussed. Impression: 1. Abdominal pain 2. Nausea 3. Generalized weak Lab Data Labs: Laboratory Results - last 24 hr 05/20/22 11:11 Urine Color Yellow Urine Clarity Clear Urine pH 6.5 Ur Specific [place] 1.015 Urine Protein 15 H Urine Glucose (UA) Normal Urine Ketones Negative Urine Occult Blood Negative Urine Nitrite Negative Urine Bilirubin Negative Urine Urobilinogen Normal Ur Leukocyte Esterase Negative Urine RBC 0 SEEN Urine WBC 0 SEEN Ur Squamous Epith Cells 0 SEEN Urine Bacteria 0 SEEN Urine Mucus 0 SEEN Radiography Diagnostic Testing: Clinical Impression(s) from Imaging Studies Abdomen/Pelvis CT 05/20/22 11:43 IMPRESSION: 1. No acute findings in the abdomen or pelvis. 2. Colonic diverticulosis without diverticulitis. 3. 2 tiny gallstones inside nondilated gallbladder fossa without pericholecystic fluid. This is unchanged. 4. Nonenhancing cysts in both kidneys are simple cysts. They are unchanged. No follow-up is needed. 5. Minimal degenerative anterolisthesis of L4 on L5, pronounced right L4-L5 degenerative facet arthropathy and moderate left L4-L5 degenerative facet arthropathy. 6. No significant interval change when compared to 08/25/2019. Electronically Signed: Carlos Lora MD at 12:44 EST , Discharge Plan Triage Chief Complaint: Abd Pain ED Provider: Shahid Salgado Dx/Rx/DC Orders Instructions: ED Abdominal Pain Unkn Cause Male... Prescriptions: No Action nitroglycerin 0.4 mg tablet, sublingual 0.4 mg SL Q5-15M PRN (Reason: chest pain) Qty: 25 3RF Rx Instructions: do not exceed 3 doses per episode multivitamin [Daily Multi-Vitamin] Tablet 1 tab PO DAILY aspirin 81 MG tablet 81 mg PO DAILY@0800 Label Comments: Heart Disease simvastatin 40 mg tablet 40 mg PO QHS isosorbide mononitrate 30 mg tablet extended release 24 hr 30 mg PO DAILY Qty: 90 3RF atenolol 25 mg tablet 25 mg PO DAILY Qty: 15 0RF lisinopril 5 mg tablet 5 mg PO DAILY Qty: 90 3RF Primary Care Provider: Radha Olivas Referrals: Radha Olivas DO [Primary Care Provider] - Disposition Disposition: Home, Self Care
[2022-05-20 11:23] LABS: Bacteria 0 SEEN /hpf (None Seen); Mucous, Urine 0 SEEN /hpf (<or=2+); Red Blood Cells-Urine 0 SEEN /hpf (0-5); Squamous Epithelial Cells - UA 0 SEEN /hpf (0-5); White Blood Cells 0 SEEN /hpf (0-5)
[2022-05-20 11:29] LABS: Color, Urine Yellow (Yellow); Glucose, Dipstick Normal (Normal); Ketone-Dipstick Negative (Negative); Leukocyte Esterase-Dipstick Negative /ul (Negative); Nitrite-Dipstick Negative (Negative); Occult Blood-Urine Negative /ul (Negative); Protein-Dipstick 15 mg/dl (Negative); Specific Gravity, Urine 1.015 (1.002-1.030); Urine Bilirubin Dipstick Negative (Negative); Urine Clarity Clear (Clear); Urine Urobilinogen Normal (Normal); Urine pH 6.5 (5.0 - 8.0)
--- NOTE | 2022-05-20 11:43 | CT_ITS ---
EXAM: CT ABDOMEN AND PELVIS WITH INTRAVENOUS CONTRAST CLINICAL INDICATION: RLQ abdominal pain TECHNIQUE: Helically acquired images were obtained of the abdomen and pelvis with intravenous contrast. This CT exam was performed using one or more of the following dose reduction techniques: automated exposure control, adjustment of the mA and/or kV according to patient size, and/or use of iterative reconstruction technique. This report was created using [employer] report generation technology. CONTRAST: 100 mL of IV [id number]. RADIATION DOSE: CTDIvol = 17.28 mGy, DLP = 840.04 mGy-cm COMPARISON: CT abdomen and pelvis without contrast 08/25/2019. FINDINGS: LOWER THORAX: Unremarkable. Lung bases are clear. No cardiomegaly. No significant pericardial effusion. ABDOMEN: LIVER: Unremarkable. Homogeneous. No focal mass. GALLBLADDER AND BILE DUCTS: At least 2 tiny gallstones without gallbladder dilatation. These gallstones were present previously. No gallbladder distention or wall edema. PANCREAS: Unremarkable. No focal cystic or solid mass. SPLEEN: Unremarkable. Normal size without focal cystic or solid mass. ADRENALS: Unremarkable. No nodules. KIDNEYS AND URETERS: Nonenhancing cysts in both kidneys. No stones or hydronephrosis in both kidneys. Normal renal size and position. STOMACH AND BOWEL: Scattered diverticula, more in the sigmoid colon but no diverticulitis. No stomach or bowel distention. PELVIS: APPENDIX: Postsurgical absence of the appendix. BLADDER: Unremarkable. REPRODUCTIVE: Unremarkable as visualized. No mass. ABDOMEN and PELVIS: INTRAPERITONEAL SPACE: Unremarkable. No ascites or other fluid collection. No free air. BONES/JOINTS: Minimal degenerative anterolisthesis of L4 on L5. Pronounced right L4-L5 degenerative facet arthropathy and moderate left L4-L5 degenerative facet arthropathy. No suspicious lytic or blastic abnormality. SOFT TISSUES: Unremarkable. No discrete abdominal or pelvic wall hernia. VASCULATURE: Calcified plaques along the abdominal aorta and iliac arteries. 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 LYMPH NODES: Unremarkable. No enlarged lymph nodes. CT/Abdomen/Pelvis W IV Cont ONLY IMPRESSION: 1. No acute findings in the abdomen or pelvis. 2. Colonic diverticulosis without diverticulitis. 3. 2 tiny gallstones inside nondilated gallbladder fossa without pericholecystic fluid. This is unchanged. 4. Nonenhancing cysts in both kidneys are simple cysts. They are unchanged. No follow-up is needed. 5. Minimal degenerative anterolisthesis of L4 on L5, pronounced right L4-L5 degenerative facet arthropathy and moderate left L4-L5 degenerative facet arthropathy. 6. No significant interval change when compared to 08/25/2019. Electronically Signed: Carlos Lora MD at 12:44 EST ,
[2022-05-20 14:41] VITALS: PULSE 62; RESP 17; O2SAT 100
== END 2022-05-20 14:43 | disposition home or self-care (01) ==
PROVIDERS: Emergency Provider Student in an Organized Health Care Education/Training Program; PCP Internal Medicine; Visit Provider Student in an Organized Health Care Education/Training Program
DX: R10.31 Right lower quadrant pain (principal); R53.1 Weakness; R11.0 Nausea; I25.10 Atherosclerotic heart disease of native coronary artery without angina pectoris; I10 Essential (primary) hypertension; Z87.442 Personal history of urinary calculi; I71.40 Abdominal aortic aneurysm, without rupture, unspecified; E78.5 Hyperlipidemia, unspecified; Z79.899 Other long term (current) drug therapy; Z79.82 Long term (current) use of aspirin; G47.33 Obstructive sleep apnea (adult) (pediatric); Z87.891 Personal history of nicotine dependence
CPT/HCPCS: 74177; 81001; 96360; 99283; Q9967

== ENCOUNTER → 2022-09-08 | Outpatient (CLI) | payer MEDICARE, SELFPAY ==
[2022-09-08 12:37] LABS: AST(SGOT) 19 U/L (15-37); Alanine Aminotransfer ALT/SGPT 18 U/L (16-61); Albumin, Serum 3.6 g/dL (3.2-5.0); Alkaline Phosphatase 101 U/L (45-117); Bilirubin, Direct 0.17 mg/dL (0.00-0.30); Cholesterol 133 mg/dL (200); Globulin 4.4 g/dL (2.2-4.2); High Density Lipoprotein 41 mg/dL; Triglycerides 55 mg/dL; Very Low Density Lipoprotein 11 mg/dL (5-40)
== END | disposition home or self-care (01) ==
PROVIDERS: PCP Internal Medicine; Visit Provider Nurse Practitioner Gerontology
DX: E78.00 Pure hypercholesterolemia, unspecified (principal); I25.10 Atherosclerotic heart disease of native coronary artery without angina pectoris; Z79.899 Other long term (current) drug therapy
CPT/HCPCS: 36415; 80061; 80076

== ENCOUNTER → 2023-04-05 | Outpatient (CLI) | payer MEDICARE, SELFPAY ==
[2023-04-05 16:13] LABS: PSA,Total - Annual Screen 3.14 ng/mL (0.00-4.00)
== END | disposition home or self-care (01) ==
LOC: MTLAB 12:34
PROVIDERS: PCP Internal Medicine; Referring Provider Internal Medicine; Visit Provider Internal Medicine
DX: Z12.5 Encounter for screening for malignant neoplasm of prostate (principal)
CPT/HCPCS: 36415; 84153; G0103

== ENCOUNTER 2023-07-31 12:09 | Observation (INO) | payer MEDICARE, SELFPAY ==
[2023-07-31] VITALS (7 sets, daily range): BP systolic 112–128; BP diastolic 59–69; PULSE 70–103; RESP 16–18; TEMP 36.7–37.2; O2SAT 94–98; BMI 22.5; BMI 23.0
--- NOTE | 2023-07-31 12:44 | ED.VIS.GI ---
HPI HPI - GI History of Present Illness Chief Complaint: Flank Pain Detail of Chief Complaint: Abdominal pain Informant: patient Narrative Narrative: Patient presents to the emergency department with right lower abdomen pain that started about a week ago. Patient states the pain severe at times and sometimes more mild right now it is more mild. He does describe some dysuria. He has history of enlarged prostate. He has remote history of kidney stones and thinks he may be passing a kidney stone. Patient has history of prior appendectomy and hernia repair. He had low-grade fever last night up to 99.5 and this morning as well. [facility] Medical History Abdominal aortic aneurysm (AAA) Actinic keratosis Adverse drug reaction Allergic rhinitis Atherosclerotic heart disease of [place] coronary artery without angina pectoris Atherosclerotic heart disease of [place] coronary artery without angina pectoris Back pain Benign hematuria Bilateral inguinal hernia without obstruction or gangrene CAD (coronary artery disease) Carotid stenosis Coronary atherosclerosis of [place] coronary vessel Cyst of left kidney Diverticulosis Essential hypertension Family history of CVA Gallstones GERD (gastroesophageal reflux disease) Hay fever History of left heart catheterization (LHC) (~10/24/99) Hypercholesterolemia Hyperlipidemia Hypertension Iron deficiency Kidney stones Limb weakness Long-term use of high-risk medication Macrocytosis Memory impairment Mitral valve disorder Mixed hyperlipidemia ASHLEY (obstructive sleep apnea) Other seborrheic keratosis Pancytopenia Pancytopenia Premature ventricular contraction Pure hypercholesterolemia Vitamin D deficiency Yeast infection of the skin Home Medications aspirin 81 mg tablet,delayed release 81 mg PO DAILY HEART HEALTH 04/28/13 [History Last Taken 05/03/13 22:00 1] atenolol 25 mg tablet 25 mg PO DAILY BLOOD PRESSURE #15 tabs 10/11/21 [Rx Last Taken Unknown] multivitamin (Daily Multi-Vitamin tablet) 1 tab PO DAILY HEALTH MAINTENANCE 02/01/22 [History Last Taken Unknown] simvastatin 40 mg tablet 20 mg PO QHS CHOLESTEROL 08/07/22 [History Last Taken Unknown] isosorbide mononitrate 30 mg tablet,extended release 24 hr 30 mg PO DAILY CHEST PAIN #90 tabs 11/12/22 [Rx Last Taken Unknown] losartan 25 mg tablet 25 mg PO DAILY BLOOD PRESSURE #90 tabs 03/22/23 [Rx Last Taken Unknown] nitroglycerin 0.4 mg sublingual tablet 0.4 mg sublingual Q5-15M PRN CHEST PAIN 07/31/23 [History Last Taken Unknown] Allergy/AdvReac Type Severity Reaction Status Date / Time ciprofloxacin [From Cipro] Allergy Hives Verified 07/31/23 12:10 atorvastatin [From Lipitor] AdvReac Intermediate Myalgias Verified 07/31/23 12:10 lovastatin [From Mevacor] AdvReac Intermediate Myalgias Verified 07/31/23 12:10 lisinopril AdvReac Mild Cough Verified 07/31/23 12:10 Family History Father CAD (coronary artery disease) Diabetes Cancer prostate Myocardial infarction Sister CVA (cerebral vascular accident) Mother Emphysema, unspecified COPD (chronic obstructive pulmonary disease) Right heart failure Surgical History History of cystoscopy History of hernia surgery History of removal of neck cyst Hx of appendectomy Social History household members: spouse Smoking Status: Never smoker how long ago did patient quit smokin years ago alcohol intake: current details: rare substance use type: does not use caffeine: Yes Type: coffee Number of servings: 1 ROS ROS ED Review of Systems ROS Unobtainable: other Constitutional Constitutional ED: Reports lethargy; Denies chills, fever(s), sweats or weight loss Eyes Eyes: Denies blurry vision, change in vision or diplopia ENT ENT ED: Denies rhinorrhea or sore throat Cardiovascular Cardiovascular: Denies chest pain, orthopnea or racing heartbeat Respiratory/Chest Respiratory/Chest: Denies cough, dyspnea, dyspnea on exertion, orthopnea or sputum Gastrointestinal Gastrointestinal: Reports abdominal pain; Denies diarrhea, nausea or vomiting Genitourinary Genitourinary ED: Denies dysuria, hematuria or urinary frequency Musculoskeletal Musculoskeletal: Denies arthralgias, back pain, myalgias or neck pain Integumentary Denies abscess, Abrasions or rash Neurologic Neurologic: Denies headache(s) or weakness Psychiatric Psychiatric: Denies anxiety, depression or suicidal thoughts Endocrine Endocrinology: Denies polydipsia, polyphagia or polyuria Hematologic/Lymphatic Hematologic/Lymphatic: Denies easy bleeding, easy bruising or lymphadenopathy Allergic/Immunologic Allergic/Immunologic ED: Denies mouth swelling, tongue swelling or urticaria EXAM Physical Exam Const Vital Signs: 07/31/23 12:10 07/31/23 14:10 Temperature 98.9 F Temperature Source Temporal Pulse Rate 103 H Respiratory Rate 18 18 Blood Pressure 123/69 H Blood Pressure Mean 87 Pulse Ox 97 Positive well nourished and well developed General Appearance ED: well developed and NAD HEENT Reports TM's clear and moist mucous membranes normocephalic and atraumatic; Negative for trauma or tenderness Tympanic Membrane ED: Yes TM's clear Eyes PERRL and EOMs intact bilaterally General Eye ED: Negative for pale conjunctiva or scleral icterus Neck no lymphadenopathy, supple and no JVD General: Negative for tenderness Chest Wall inspection of chest normal and palpation of chest normal Chest: Negative for tenderness Resp normal respiratory effort and clear to auscultation bilaterally Effort and Inspection: Negative for respiratory distress or pain with movement Auscultation: Negative for rhonchi, wheezes or diminished lung sounds Cardio regular rate, regular rhythm, S1 normal heart sound, S2 normal heart sound and no murmurs Peripheral Pulses: pulses 2+ throughout GI normal to inspection, nondistended, normoactive bowel sounds, soft to palpation, non-distended and no masses GI Narrative: Tenderness palpation of the right lower quadrant with some guarding. There is no rebound, rigidity, or peritoneal signs. No masses palpated. No hernias noted. Back/Spine no CVA tenderness and no thoracic nor lumbar tenderness Extremity normal to inspection General Extremety ED: Negative for edema General Extremity: Negative for edema Neuro oriented x3, CN's II-XII intact bilaterally, no sensory deficits noted and gait normal Sensorium / Orientation: awake, alert, oriented to person, oriented to place and oriented to time Motor Exam: strength 5/5 throughout and strength abnormal Psych mental status grossly normal Skin no rashes or lesions noted and no wounds MDM MDM MDM Narrative Medical decision making narrative: Patient presents with right lower quadrant pain think that he was passing a kidney stone. In the differential would be kidney stone versus UTI versus bowel perforation or bowel obstruction. IV line established. CBC with differential white count 7.6 with hemoglobin of 11.7 and platelet count of 92,000. Chemistries unremarkable. LFTs unremarkable. Urinalysis was normal. CT scan of the abdomen pelvis showed acute diverticulitis of the sigmoid colon and rectosigmoid area. No obvious perforation noted or abscess. Case discussed with general surgeon on-call who evaluated the CT images and agrees would benefit from admission and IV antibiotics given patient's age and comorbidities and findings on CT. Will discuss with hospitalist to evaluate patient for admission. Lab Data Labs: Laboratory Results - last 24 hr 07/31/23 07/31/23 13:00 13:15 WBC 7.6 RBC 3.63 L Hgb 11.7 L Hct 35.8 L MCV 98.6 H MCH 32.2 H MCHC 32.7 RDW Std Deviation 49.7 H RDW Coeff of [place] 13.8 Plt Count 92 L MPV 10.3 Immature Gran % (Auto) 0.800 Neut % (Auto) 62.1 Lymph % (Auto) 7.7 L [place] % (Auto) 29.0 H Eos % (Auto) 0.3 Baso % (Auto) 0.1 Absolute Neuts (auto) 4.7 Absolute Lymphs (auto) 0.58 L Nucleated RBC % 0 Differential Comment SCANNED Platelet Estimate SLT DEC Sodium 139 Potassium 3.7 Chloride 108 H Carbon Dioxide 27.0 Anion Gap 4 L BUN 14 Creatinine 0.89 Estim Creat Clear Calc 61.89 Est GFR (MDRD) Af Amer 105 Est GFR (MDRD) Non-Af 87 BUN/Creatinine Ratio 15.7 Glucose 124 H Calcium 9.4 Total Bilirubin 0.80 AST 23 ALT 27 Alkaline Phosphatase 87 Total Protein 7.5 Albumin 3.2 Globulin 4.3 H Albumin/Globulin Ratio 0.7 L Urine Color Yellow Urine Clarity Clear Urine pH 6.0 Ur Specific [place] 1.020 Urine Protein 30 H Urine Glucose (UA) Normal Urine Ketones Negative Urine Occult Blood 50 H Urine Nitrite Negative Urine Bilirubin Negative Urine Urobilinogen Normal Ur Leukocyte Esterase Negative Urine RBC 0 SEEN Urine WBC 0 SEEN Ur Squamous Epith Cells 0 SEEN Urine Bacteria 0 SEEN Urine Mucus 0 SEEN Radiography Diagnostic Testing: Clinical Impression(s) from Imaging Studies Abdomen/Pelvis CT 07/31/23 13:20 IMPRESSION: Acute sigmoid diverticulitis 1. There are multiple pancolonic diverticula consistent with diverticulosis. Acute diverticulitis of the sigmoid colon/rectosigmoid junction is present with moderate pericolonic inflammation and edema on the left side and an air distended diverticulum seen on image 87/121 series 2. Moderate edema and thickening is present in the affected portion of the rectosigmoid colon. No abscess or free air is present. 2. Nonobstructing left kidney stones Electronically Signed: Ruben Toussaint MD at 13:51 EST , Discharge Plan Triage Chief Complaint: Flank Pain ED Provider: Bisi Bartlett Dx/Rx/DC Orders Clinical Impression: Acute diverticulitis, History of coronary artery disease, Abdominal pain Prescriptions: No Action multivitamin [Daily Multi-Vitamin] Tablet 1 tab PO DAILY simvastatin 40 mg tablet 20 mg PO QHS aspirin 81 MG tablet 81 mg PO DAILY nitroglycerin 0.4 mg tablet, sublingual 0.4 mg SL Q5-15M PRN (Reason: CHEST PAIN ) Rx Instructions: DO NOT EXCEED THREE DOSES PER EPISODE. atenolol 25 mg tablet 25 mg PO DAILY Qty: 15 0RF isosorbide mononitrate 30 mg tablet extended release 24 hr 30 mg PO DAILY Qty: 90 3RF losartan 25 mg tablet 25 mg PO DAILY Qty: 90 3RF Primary Care Provider: Radha Olivas Referrals: Radha Olivas DO [Primary Care Provider] - Disposition Disposition: Acute Care Hospital Capacity Legal Freezer Person Reflex Medical hold order details:: IF a medical hold is selected below, a suggested order for a MEDICAL HOLD will reflex upon signing the document. Next of kin: [place] law dictates a PRIORITY LIST for identifying legal decision-maker/legal next of kin in the following order (LNOK): 1st: The patient?s legal guardian, if any 2nd: The patient's spouse (if status is questionable, consult Risk Management) 3rd: The patient?s adult child(jose alberto) (majority, if multiple children) 4th: The patient?s parents 5th: The patient?s adult siblings (majority, if multiple children siblings)
[2023-07-31 13:10] LABS: Absolute Lymphocyte Count 0.58 X10^3/uL (0.83-4.51); Absolute Neutrophil Count 4.7 X10^3/uL (2.0-7.7); Basophil# 0.01 X10^3/uL; Basophil% 0.1 % (0-1); Eosinophil# 0.02 X10^3/uL; Eosinophils% 0.3 % (0-5); Hematocrit 35.8 % (40-54); Hemoglobin 11.7 g/dL (13.0-16.5); Lymphocyte # 0.58 X10^3/ul (0.83-4.51); Lymphocyte % 7.7 % (19-41); Mean Corp Hgb Conc 32.7 g/dL (32-36); Mean Corpuscular Hgb 32.2 pg (27.0-32.0); Mean Corpuscular Volume 98.6 fL (80-94); Mean Platelet Vol. 10.3 fl (6.2-12.0); NRBC Flagged by Analyzer 0 % (0-5); Neutrophil # 4.71 X10^3/uL (2.7-7.7); Neutrophil % 62.1 % (47-70); POSITIVE COUNT YES; POSITIVE DIFFERENTIAL YES; Platelet Count 92 K/mm3 (150-450); RBC Distribution Width CV 13.8 % (11.6-14.6); RBC Distribution Width SD 49.7 fl (35.1-43.9); Red Blood Count 3.63 M/mm3 (4.6-6.2); White Blood Count 7.6 K/mm3 (4.4-11.0)
[2023-07-31 13:16] LABS: Differential Indicated SCAN CRITERIA MET
--- NOTE | 2023-07-31 13:20 | CT_ITS ---
STUDY: CT ABDOMEN AND PELVIS WITHOUT CONTRAST REASON FOR EXAM: Male, 82 years old. Pain RADIATION DOSAGE (If Supplied By Facility): CTDIvol = ( 8.56 ) mGy, DLP = ( 413.26 ) mGycm TECHNIQUE: Transaxial images were obtained from the dome of the diaphragm to the symphysis pubis without oral contrast, and without intravenous contrast. Sagittal and coronal images were reconstructed. Individualized dose optimization techniques were used for this CT. COMPARISON: May 20, 2022 FINDINGS: The visualized lung bases are unremarkable. The visualized portions of the heart are within normal limits. Normal liver. There are multiple gallstones. Normal spleen. Normal pancreas. Normal bilateral adrenal glands. There is mild atrophy of both kidneys with lobularity. Multiple small cysts are present in both kidneys, unchanged from the prior studies. A few parenchymal and tiny calyceal stones are seen in the left kidney. No hydronephrosis is present. Normal visualized stomach. Normal small intestine. There are multiple pancolonic diverticula consistent with diverticulosis. Acute diverticulitis of the sigmoid colon/rectosigmoid junction is present with moderate pericolonic inflammation and edema on the left side and an air distended diverticulum seen on image 87/121 series 2. Moderate edema and thickening is present in the affected portion of the rectosigmoid colon. No abscess or free air is present. There is non-visualization of the appendix. 3.26 cm aneurysm of the distal abdominal aorta. Normal inferior vena cava. Normal retroperitoneum. Normal urinary bladder. The prostate gland is mildly enlarged and calcified. Small bilateral fat-containing inguinal hernias are present. Normal abdominal wall. There are diffuse degenerative changes of the visualized lumbar spine. CT/Abdomen/Pelvis without Cont IMPRESSION: Acute sigmoid diverticulitis 1. There are multiple pancolonic diverticula consistent with diverticulosis. Acute diverticulitis of the sigmoid colon/rectosigmoid junction is present with moderate pericolonic inflammation and edema on the left side and an air distended diverticulum seen on image 87/121 series 2. Moderate edema and thickening is present in the affected portion of the rectosigmoid colon. No abscess or free air is present. 2. Nonobstructing left kidney stones Electronically Signed: Ruben Toussaint MD at 13:51 EST Reading Location ID and State: [facility] / [place] , Service support ,
[2023-07-31 13:21] LABS: Bacteria 0 SEEN /hpf (None Seen); Mucous, Urine 0 SEEN /hpf (<or=2+); Red Blood Cells-Urine 0 SEEN /hpf (0-5); Squamous Epithelial Cells - UA 0 SEEN /hpf (0-5); White Blood Cells 0 SEEN /hpf (0-5)
[2023-07-31 13:27] LABS: Differential Comment SCANNED; Platelet Estimate SLT DEC (ADEQ)
[2023-07-31 13:28] LABS: ALB/GLOB Ratio 0.7 RATIO (0.9-2.4); AST(SGOT) 23 U/L (15-37); Alanine Aminotransfer ALT/SGPT 27 U/L (16-61); Albumin, Serum 3.2 g/dL (3.2-5.0); Alkaline Phosphatase 87 U/L (45-117); Anion Gap 4 (5-15); BUN 14 mg/dL (7-18); BUN/Creat Ratio 15.7 RATIO (10-20); Calcium,Total 9.4 mg/dL (8.5-10.1); Chloride 108 mmol/L (98-107); Creatinine, Serum 0.89 mg/dL (0.70-1.30); EST Glomerular Filtration Rate 87 mL/min (>60); Est Glom Filt Rate - Afr Amer 105 mL/min (>60); Estimated Creatinine Clearance 61.89 ml/min; Globulin 4.3 g/dL (2.2-4.2); Glucose 124 mg/dL (74-106); Potassium 3.7 mmol/L (3.5-5.1); Protein, Total 7.5 g/dL (6.4-8.2); Sodium Level 139 mmol/L (136-145)
[2023-07-31] MEDS: 0.9% Normal Saline (1000mL) 1,000 ML 125 ML IV (13:29)
[2023-07-31 13:33] LABS: Glucose, Dipstick Normal (Normal); Ketone-Dipstick Negative (Negative); Leukocyte Esterase-Dipstick Negative /ul (Negative); Nitrite-Dipstick Negative (Negative); Occult Blood-Urine 50 /ul (Negative); Protein-Dipstick 30 mg/dl (Negative); Urine Bilirubin Dipstick Negative (Negative); Urine Urobilinogen Normal (Normal)
[2023-07-31 13:40] LABS: Color, Urine Yellow (Yellow); Urine Clarity Clear (Clear)
--- NOTE | 2023-07-31 15:59 | HP.PCM.HOS_ITS ---
HPI - General General Date of Admission: 07/31/23 Date of Service: 07/31/23 Chief Complaint: Abdominal Pain HPI Narrative YAIR MCCORD, is a 82 M who presented to the emergency department at [facility] on 07/31/2023 complaining of right lower quadrant pain that has been ongoing for about a week now. He has not had to alter his oral intake at all but the pain has been persistent and getting worse. He reported sometimes it was very severe. He denies any fevers but did have temperature elevations up to 99.5 at home with the most recent being last evening. He is complaining of some mild dysuria and has history of enlarged prostate with frequent urination. He does have a history of kidney stones and when he came in he thought he may be passing a kidney stone. He had no nausea or vomiting. He states he is chronically constipated and has to strain significantly with having a bowel movement. He has had colonoscopy b ut believes his last one has been greater than 10 years ago. He denies any blood in his stool. He has chronic pancytopenia and was following with Dr. Vieira and most recently has seen Dr. Vines for this and workup is in progress. He complains of having about a 30 pound weight loss in the last year and has not been trying to lose weight. He states that he has not discussed this with his primary care physician and also has not discussed his urinary issues either. Vital signs on presentation showed temperature of 98.9, heart rate 103, blood pressure is 123/69, respiratory was 18 oxygen saturations were 97% on room air. His CBC showed a anemia with a hemoglobin of 11.7 and a thrombocytopenia with a platelet count of 92,000. These are both chronic and stable relatively speaking. He does not have an elevated white count or left shift. He does have a significant monocytosis with a 29% monocytosis on his differential. Coags are slightly elevated with a normal INR 1.2. PT was 15.5 and PTT was 45.2. His chemistry panel was overall unremarkable. UA showed some occult blood and protein but no signs of infection. CT of the abdomen pelvis was performed and showed multiple pancolonic diverticuli consistent with diverticulosis and acute diverticulitis of the sigmoid colon/rectosigmoid junction with moderate pericolonic inflammation and edema on the left side and an air distended diverticulum with moderate edema and thickening of the rectosigmoid colon without abscess or free air as well as a nonobstructing left kidney stone. The emergency department discussed the case with general surgery and despite him having a normal white count and able to take p.o. they recommended inpatient treatment, therefore we were called for admission. In the emergency department he received IV fluids as well as oral Augmentin and then Zosyn. [facility] Medical History Abdominal aortic aneurysm (AAA) Actinic keratosis Adverse drug reaction Allergic rhinitis Anemia Atherosclerotic heart disease of [place] coronary artery without angina pectoris Atherosclerotic heart disease of [place] coronary artery without angina pectoris Back pain Benign hematuria Bilateral inguinal hernia without obstruction or gangrene CAD (coronary artery disease) Carotid stenosis Coronary atherosclerosis of [place] coronary vessel Cyst of left kidney Diverticulosis Essential hypertension Family history of CVA Gallstones GERD (gastroesophageal reflux disease) Hay fever History of left heart catheterization (LHC) (~10/24/99) Hypercholesterolemia Hyperlipidemia Hypertension Iron deficiency Kidney stones Limb weakness Long-term use of high-risk medication Macrocytosis Memory impairment Mitral valve disorder Mixed hyperlipidemia ASHLEY (obstructive sleep apnea) Other seborrheic keratosis Pancytopenia Pancytopenia Premature ventricular contraction Pure hypercholesterolemia Thrombocytopenia Vitamin D deficiency Yeast infection of the skin Home Medications aspirin 81 mg tablet,delayed release 81 mg PO DAILY HEART HEALTH 04/28/13 [History Last Taken 07/31/23] simvastatin 40 mg tablet 20 mg PO QHS CHOLESTEROL 08/07/22 [History Last Taken 07/30/23] isosorbide mononitrate 30 mg tablet,extended release 24 hr 30 mg PO DAILY CHEST PAIN #90 tabs 11/12/22 [Rx Last Taken 07/31/23] losartan 25 mg tablet 25 mg PO DAILY BLOOD PRESSURE #90 tabs 03/22/23 [Rx Last Taken 07/31/23] atenolol 25 mg tablet 12.5 mg PO DAILY BLOOD PRESSURE 07/31/23 [History Last [place] en 07/31/23] nitroglycerin 0.4 mg sublingual tablet 0.4 mg sublingual Q5-15M PRN CHEST PAIN 07/31/23 [History Last Taken Unknown] Allergy/AdvReac Type Severity Reaction Status Date / Time ciprofloxacin [From Cipro] Allergy Hives Verified 07/31/23 12:10 atorvastatin [From Lipitor] AdvReac Intermediate Myalgias Verified 07/31/23 12:10 lovastatin [From Mevacor] AdvReac Intermediate Myalgias Verified 07/31/23 12:10 lisinopril AdvReac Mild Cough Verified 07/31/23 12:10 Family History Father CAD (coronary artery disease) Diabetes Cancer prostate Myocardial infarction Sister CVA (cerebral vascular accident) Mother Emphysema, unspecified COPD (chronic obstructive pulmonary disease) Right heart failure Surgical History History of cystoscopy History of hernia surgery History of removal of neck cyst Hx of appendectomy Social History household members: spouse Smoking Status: Never smoker how long ago did patient quit smokin years ago alcohol intake: current details: rare substance use type: does not use caffeine: Yes Type: coffee Number of servings: 1 ROS Constitutional Constitutional: Reports anorexia, change in weight, chills, fever(s) and weakness; Denies fatigue, malaise, night sweats or other Eyes Eyes: Denies blurry vision, change in eye color, change in vision, discharge from eye(s), double vision, erythema, eye pain, loss of vision or other ENT HEENT: Denies abnormal hearing, dysphagia, ear pain, epistaxis, headache(s), hearing loss, nasal congestion, nasal discharge, post nasal drip, sinus pressure, sore throat or other Cardiovascular Cardiovascular: Denies chest pain, claudication, dyspnea on exertion, edema, lightheadedness, orthopnea, palpitations, paroxysmal nocturnal dyspnea, rapid heart rate, syncope or other Respiratory/Chest Respiratory/Chest: Denies cough, dyspnea, excessive phlegm production, hemoptysis, productive cough, shortness of breath at rest, shortness of breath with exertion, wheezing or other Gastrointestinal Gastrointestinal: Reports abdominal pain and constipation; Denies coffee ground emesis, diarrhea, dyspepsia, hematemesis, hematochezia, loose stools, melena, nausea, vomiting or other Genitourinary Genitourinary: Reports difficulty urinating, dysuria, urinary frequency, urinary hesitancy and urinary urgency; Denies burning urination, hematuria, nocturia, urinary incontinence or other Musculoskeletal Musculoskeletal: Reports back pain; Denies arthralgias, joint pain, joint stiffness, joint swelling, myalgias, neck pain or other Neurologic Neurologic: Denies abnormal gait, abnormal speech, confusion, disequilibrium, dizziness, focal weakness, headache(s), numbness, paresthesias, seizure-like activity, seizures, syncope, tingling, tremor(s) or other Psychiatric Psychiatric: Denies anxiety, depression, homicidal ideation, suicidal ideation or other Endocrine Endocrinology: Denies change in body appearance, cold intolerance, excessive sweating, heat intolerance, polydipsia, polyuria or other Hematologic/Lymphatic Hematologic/Lymphatic: Reports anemia and other Details: Chronic thrombocytopenia ; Denies easy bleeding, easy bruising or lymphadenopathy Allergic/Immunologic Allergic/Immunologic: Denies rhinitis, hives, eczemia, asthma or other Vital Signs Vital Signs Vital Signs: 07/31/23 12:10 07/31/23 14:10 Temperature 98.9 F Temperature Source Temporal Pulse Rate 103 H Respiratory Rate 18 18 Blood Pressure 123/69 H Blood Pressure Mean 87 Pulse Ox 97 Weight Weight: 67.222 kg Body Mass Index (BMI) 22.5 Physical Exam Const alert, oriented x3, no apparent distress and average body habitus Constitutional Narrative: Elderly, white male, sitting up in bed, increased thoracic kyphosis, does not appear toxic, at bedside, very pleasant General Appearance: cooperative HEENT normocephalic, head/scalp atraumatic and moist oral mucous membranes HEENT Narrative: Mild hearing loss, dentition is good for age, Mallampati is 2, no thrush Eyes PERRL, EOMs intact bilaterally and conjunctivae normal Eyes Narrative: No scleral icterus Neck no lymphadenopathy and supple Neck Narrative: Trachea midline, no thyroid enlargement Resp normal respiratory effort, no retractions, no use of accessory muscles and clear to auscultation bilaterally Auscultation: Negative for rales, rhonchi or wheezes Cardio regular rate, regular rhythm, S1 normal heart sound, S2 normal heart sound, no murmurs, no rub, no gallops and no clicks GI normal to inspection, nondistended, normoactive bowel sounds and soft to palpation GI Narrative: Mild tenderness right lower quadrant and left lower quadrant greater on right than left Extremity no clubbing, cyanosis or edema Extremity Narrative: Pedal pulses are 2+ Skin no rashes or lesions noted, no wounds, skin turgor normal, no jaundice, no petechiae and no mottling Neuro oriented x3, moves all extremities and no focal motor deficits Speech: speech normal Psych affect normal Psych Narrative: Eye contact is good, patient interacts appropriately Results Lab / Micro Data 07/31/23 13:00 07/31/23 13:00 Labs: Laboratory Results - last 24 hr 07/31/23 13:00: WBC 7.6, RBC 3.63 L, Hgb 11.7 L, Hct 35.8 L, MCV 98.6 H, MCH 32.2 H, MCHC 32.7, RDW Std Deviation 49.7 H, RDW Coeff of [place] 13.8, Plt Count 92 L, MPV 10.3, Immature Gran % (Auto) 0.800, Neut % (Auto) 62.1, Lymph % (Auto) 7.7 L, [place] % (Auto) 29.0 H, Eos % (Auto) 0.3, Baso % (Auto) 0.1, Absolute Neuts (auto) 4.7, Absolute Lymphs (auto) 0.58 L, Nucleated RBC % 0, Differential Comment SCANNED, Platelet Estimate SLT DEC, Sodium 139, Potassium 3.7, Chloride 108 H, Carbon Dioxide 27.0, Anion Gap 4 L, BUN 14, Creatinine 0.89, Estim Creat Clear Calc 61.89, Est GFR (MDRD) Af Amer 105, Est GFR (MDRD) Non-Af 87, BUN/Creatinine Ratio 15.7, Glucose 124 H, Calcium 9.4, Total Bilirubin 0.80, AST 23, ALT 27, Alkaline Phosphatase 87, Total Protein 7.5, Albumin 3.2, Globulin 4.3 H, Albumin/Globulin Ratio 0.7 L 07/31/23 13:15: Urine Color Yellow, Urine Clarity Clear, Urine pH 6.0, Ur Specific [place] 1.020, Urine Protein 30 H, Urine Glucose (UA) Normal, Urine Ketones Negative, Urine Occult Blood 50 H, Urine Nitrite Negative, Urine Bilirubin Negative, Urine Urobilinogen Normal, Ur Leukocyte Esterase Negative, Urine RBC 0 SEEN, Urine WBC 0 SEEN, Ur Squamous Epith Cells 0 SEEN, Urine Bacteria 0 SEEN, Urine Mucus 0 SEEN Imagaing Radiology Impression Abdomen/Pelvis CT 07/31/23 13:20 IMPRESSION: Acute sigmoid diverticulitis 1. There are multiple pancolonic diverticula consistent with diverticulosis. Acute diverticulitis of the sigmoid colon/rectosigmoid junction is present with moderate pericolonic inflammation and edema on the left side and an air distended diverticulum seen on image 87/121 series 2. Moderate edema and thickening is present in the affected portion of the rectosigmoid colon. No abscess or free air is present. 2. Nonobstructing left kidney stones Electronically Signed: Ruben Toussaint MD at 13:51 EST Reading Location ID and State: [facility] / [place] , Service support , Assessment & Plan Assessment/Plan (1) Abdominal pain: (2) Acute diverticulitis: (3) Weight loss: (4) BPH with obstruction/lower urinary tract symptoms: PLAN: Plan Abdominal pain with acute diverticulitis -Abdominal pain is right lower quadrant and diverticulitis is an sigmoid colon however colon does loop around oddly on imaging -Case was discussed with general surgery and they recommended admission--> will consult for assistance -Patient will likely need colonoscopy at some time in the future -N.p.o. except for sips and chips and oral meds -IV fluids -As needed IV pain medication -As needed antiemetics -Zosyn as patient has Cipro allergy -General surgery consultation pending Weight loss -Patient reports that he had significant mount of weight loss in the last year up to 35 to 40 pounds -Has not discussed this with his primary care physician -Last colonoscopy was greater than 10 years ago -Does complain of some constipation and straining with bowel movements on admission -Is not up-to-date on cancer screening however with his age at this time most cancer screening is outdated due to his age -With him being symptomatic he probably should have a colonoscopy after discharge BPH with obstructive symptoms -Patient has not followed up or discussed this with his primary care physician -Strongly encouraged outpatient follow-up after discharge -Will start Flomax -UA shows some mild hematuria -Recommend outpatient follow-up with urology after discharge -Prostate gland was mildly enlarged on CT History of pancytopenia -White count is currently normal however patient does have anemia and thrombocytopenia -Follows as an outpatient with Dr. Vines and has seen in the past -Workup is currently underway with Dr. Vines Nonobstructive CAD/hyperlipidemia/hypertension/MVP -Last echo shows an EF of 65% with trivial mitral valve, mild tricuspid valve, trivial or aortic valve, trivial pulmonic valve insufficiency with no evidence of diastolic dysfunction right ventricular systolic pressure 21 mmHg -continue home aspirin -Continue home atenolol -Continue home isosorbide mononitrate -Continue home losartan -Continue home simvastatin AAA -Continue outpatient follow-up -Patient is due for imaging as an outpatient History of carotid artery stenosis -Continue outpatient follow-up History of GERD -Patient currently takes no medications History of nephrolithiasis -No signs of obstructing kidney stone at this time on imaging DVT prophylaxis -Subcu Lovenox CODE STATUS -DNR CCA okay for short-term intubation as per discussion on admission Charges/Coding Visit Charges Inpatient E&M: 24880 Init Hosp L2
[2023-07-31] MEDS: Amox/Clavulanate 875 MG Tablet PO (16:07)
[2023-07-31] MEDS: Morphine 4 MG/ML Syringe IV (16:07)
[2023-07-31] MEDS: Ondansetron 4 MG/2 ML Vial IV (16:07)
[2023-07-31 16:41] LABS: International Normalized Ratio 1.2; Prothrombin Time (Protime)PT. 15.5 SECONDS (11.7-14.9)
[2023-07-31 16:43] LABS: Partial Thromboplast Time 45.2 Seconds (24.1-36.2)
[2023-07-31] MEDS: Piperacil/Tazobactam 4.5 GM in 0.9% Normal Saline (100mL MB+) 100 ML IV (16:45)
[2023-07-31] MEDS: Tamsulosin HCl 0.4 MG Capsule 0.400000000000000022 MG PO (18:56)
--- NOTE | 2023-07-31 20:22 | CON.PCM.SX_ITS ---
Assessment & Plan Assessment/Plan (1) Acute diverticulitis: PLAN: Patient is an 82-year-old male admitted with evidence of acute divertic ulitis. He also has an unusually large?appearing diverticulum of the sigmoid colon in the pelvis. It is difficult to fully exclude possible pericolonic air pocket related to complicated diverticulitis and thus I recommended inpatient mission for IV antibiotics. Hospitalist service has consulted for assistance with management. Agree with proceeding with bowel rest and IV antibiotic therapy. However, the patient demonstrates some improvement of his abdominal exam we will plan to initiate a diet that is high-protein low fiber initially and discharged with oral antibiotics. Plan has been discussed with patient. I have also shared with him the necessity of avoiding significant constipation ?both to forestall progression of his diverticular disease as well as to prevent recurrence of impaction scenario?something that he states he is dealt with in recent years. Will continue to follow. HPI Consult Data Date of Consult: 07/31/23 HPI Narrative Reason for Consultation: Acute diverticulitis HPI Narrative: YAIR MCCORD, is a 82 M who presents to [facility] with complaints of 1 week of acute onset abdominal pain with progression of symptoms over the past 2 nights. He notes primarily right lower quadrant pain with associated low-grade fevers and chills. There is also some associated burning with u rination. Patient notes similar episode approximately a few weeks ago that was self?limited. Patient's ER workup was notable for CBC with normal white blood cell count. CT imaging of the abdomen pelvis showed evidence of acutely inflamed sigmoid colon and diverticula suggesting acute uncomplicated diverticulitis. Additionally, radiology noted the presence of a abnormally large diverticulum in 1 axial section. Upon noting this read, emergency medicine requested additional general surgery evaluation of the imaging and in my independent review of the imaging I suggested to emergency medicine that it would be difficult to fully excluded possible pericolonic air collection. Based on this and the degree of inflammation and patient's mesocolon I recommended admission with IV antibiotics. Patient reports that his last colonoscopy was some 12 years ago and was performed routinely through the [facility]. He denies any significant findings. He does report that in recent years he has developed significant constipation. He remarks of significant straining and suggest that his bowel movements have become solid balls . He denies any bleeding. He has no history of hemorrhoid disease. [facility] Medical History (Updated 07/31/23 @ 17:48 by Hayley Worley) Abdominal aortic aneurysm (AAA) Actinic keratosis Adverse drug reaction Allergic rhinitis Anemia Atherosclerotic heart disease of [place] coronary artery without angina pectoris Atherosclerotic heart disease of [place] coronary artery without angina pectoris Back pain Benign hematuria Bilateral inguinal hernia without obstruction or gangrene CAD (coronary artery disease) Carotid stenosis Chest pain Coronary artery disease Coronary atherosclerosis of [place] coronary vessel Cyst of left kidney Diverticulosis Essential hypertension Family history of CVA Gallstones GERD (gastroesophageal reflux disease) Hay fever History of left heart catheterization (LHC) (~10/24/99) Hypercholesterolemia Hyperlipidemia Hypertension Hypertension Iron deficiency Kidney stones Limb weakness Long-term use of high-risk medication Macrocytosis Memory impairment Mitral valve disorder Mixed hyperlipidemia ASHLEY (obstructive sleep apnea) Other seborrheic keratosis Pancytopenia Pancytopenia Premature ventricular contraction Pure hypercholesterolemia Thrombocytopenia Vitamin D deficiency Yeast infection of the skin Home Medications aspirin 81 mg tablet,delayed release 81 mg PO DAILY HEART HEALTH 04/28/13 [History Last Taken 07/31/23] simvastatin 40 mg tablet 20 mg PO QHS CHOLESTEROL 08/07/22 [History Last Taken 07/30/23] isosorbide mononitrate 30 mg tablet,extended release 24 hr 30 mg PO DAILY CHEST PAIN #90 tabs 11/12/22 [Rx Last Taken 07/31/23] losartan 25 mg tablet 25 mg PO DAILY BLOOD PRESSURE #90 tabs 03/22/23 [Rx Last Taken 07/31/23] atenolol 25 mg tablet 12.5 mg PO DAILY BLOOD PRESSURE 07/31/23 [History Last Taken 07/31/23] nitroglycerin 0.4 mg sublingual tablet 0.4 mg sublingual Q5-15M PRN CHEST PAIN 07/31/23 [History Last Taken Unknown] Allergy/AdvReac Type Severity Reaction Status Date / Time ciprofloxacin [From Cipro] Allergy Hives Verified 07/31/23 12:10 atorvastatin [From Lipitor] AdvReac Intermediate Myalgias Verified 07/31/23 12:10 lovastatin [From Mevacor] AdvReac Intermediate Myalgias Verified 07/31/23 12:10 lisinopril AdvReac Mild Cough Verified 07/31/23 12:10 Family History Father CAD (coronary artery disease) Diabetes Cancer prostate Myocardial infarction Sister CVA (cerebral vascular accident) Mother Emphysema, unspecified COPD (chronic obstructive pulmonary disease) Right heart failure Surgical History History of cystoscopy History of hernia surgery History of removal of neck cyst Hx of appendectomy Social History household members: spouse Smoking Status: Never smoker how long ago did patient quit smokin years ago alcohol intake: current details: rare substance use type: does not use caffeine: Yes Type: coffee Number of servings: 1 Physical Exam Const alert, oriented x3 and no apparent distress General Appearance: cooperative Resp normal respiratory effort GI GI Narrative: Nondistended, soft, tenderness with palpation over left lower quadrant and suprapubic positions Lab / Micro Data 07/31/23 13:00 07/31/23 13:00 Labs: Laboratory Results - last 24 hr 07/31/23 13:00: WBC 7.6, RBC 3.63 L, Hgb 11.7 L, Hct 35.8 L, MCV 98.6 H, MCH 32.2 H, MCHC 32.7, RDW Std Deviation 49.7 H, RDW Coeff of [place] 13.8, Plt Count 92 L, MPV 10.3, Immature Gran % (Auto) 0.800, Neut % (Auto) 62.1, Lymph % (Auto) 7.7 L, [place] % (Auto) 29.0 H, Eos % (Auto) 0.3, Baso % (Auto) 0.1, Absolute Neuts (auto) 4.7, Absolute Lymphs (auto) 0.58 L, Nucleated RBC % 0, Differential Comment SCANNED, Platelet Estimate SLT DEC, Sodium 139, Potassium 3.7, Chloride 108 H, Carbon Dioxide 27.0, Anion Gap 4 L, BUN 14, Creatinine 0.89, Estim Creat Clear Calc 61.89, Est GFR (MDRD) Af Amer 105, Est GFR (MDRD) Non-Af 87, BUN/Creatinine Ratio 15.7, Glucose 124 H, Calcium 9.4, Total Bilirubin 0.80, AST 23, ALT 27, Alkaline Phosphatase 87, Total Protein 7.5, Albumin 3.2, Globulin 4.3 H, Albumin/Globulin Ratio 0.7 L 07/31/23 13:15: Urine Color Yellow, Urine Clarity Clear, Urine pH 6.0, Ur Specific [place] 1.020, Urine Protein 30 H, Urine Glucose (UA) Normal, Urine Ketones Negative, Urine Occult Blood 50 H, Urine Nitrite Negative, Urine Bilirubin Negative, Urine Urobilinogen Normal, Ur Leukocyte Esterase Negative, Urine RBC 0 SEEN, Urine WBC 0 SEEN, Ur Squamous Epith Cells 0 SEEN, Urine Bacteria 0 SEEN, Urine Mucus 0 SEEN 07/31/23 16:20: PT 15.5 H, INR 1.2, APTT 45.2 H Imagaing Radiology Impression Abdomen/Pelvis CT 07/31/23 13:20 IMPRESSION: Acute sigmoid diverticulitis 1. There are multiple pancolonic diverticula consistent with diverticulosis. Acute diverticulitis of the sigmoid colon/rectosigmoid junction is present with moderate pericolonic inflammation and edema on the left side and an air distended diverticulum seen on image 87/121 series 2. Moderate edema and thickening is present in the affected portion of the rectosigmoid colon. No abscess or free air is present. 2. Nonobstructing left kidney stones Electronically Signed: Ruben Toussaint MD at 13:51 EST Reading Location ID and State: [facility] / [place] , Service support , Capacity Legal Sample Preparation Supervisor Reflex Medical hold order details:: IF a medical hold is selected below, a suggested order for a MEDICAL HOLD will reflex upon signing the document. Next of kin: [place] law dictates a PRIORITY LIST for identifying legal decision-maker/legal next of kin in the following order (LNOK): 1st: The patient?s legal guardian, if any 2nd: The patient's spouse (if status is questionable, consult Risk Management) 3rd: The patient?s adult child(jose alberto) (majority, if multiple children) 4th: The patient?s parents 5th: The patient?s adult siblings (majority, if multiple children siblings) Charges/Coding Visit Charges Inpatient E&M: 44815 Init Hosp L2
[2023-07-31] MEDS: 0.9% Normal Saline (1000mL) 1,000 ML 75 ML IV (21:02)
[2023-07-31] MEDS: Simvastatin 20 MG Tablet PO (21:04)
[2023-07-31] MEDS: Piperacil/Tazobactam 3.375 GM in 0.9% Normal Saline (50mL MB+) 50 ML IV (21:04)
[2023-08-01 03:00] VITALS: BP 99/60; PULSE 65; RESP 16; TEMP 36.7; O2SAT 97
[2023-08-01] MEDS: Piperacil/Tazobactam 3.375 GM in 0.9% Normal Saline (50mL MB+) 50 ML IV ×2 (06:11→14:19)
[2023-08-01 06:59] LABS: Absolute Lymphocyte Count 0.92 X10^3/uL (0.83-4.51); Absolute Neutrophil Count 2.2 X10^3/uL (2.0-7.7); Basophil# 0.01 X10^3/uL; Basophil% 0.2 % (0-1); Eosinophil# 0.04 X10^3/uL; Eosinophils% 0.9 % (0-5); Hematocrit 32.9 % (40-54); Hemoglobin 10.7 g/dL (13.0-16.5); Lymphocyte # 0.92 X10^3/ul (0.83-4.51); Lymphocyte % 20.3 % (19-41); Mean Corp Hgb Conc 32.5 g/dL (32-36); Mean Corpuscular Volume 98.5 fL (80-94); Mean Platelet Vol. 10.2 fl (6.2-12.0); Monocyte# 1.32 X10^3/uL; Monocyte% 29.1 % (0-10); NRBC Flagged by Analyzer 0 % (0-5); Neutrophil # 2.22 X10^3/uL (2.7-7.7); Neutrophil % 48.8 % (47-70); POSITIVE COUNT YES; Platelet Count 93 K/mm3 (150-450); RBC Distribution Width CV 13.6 % (11.6-14.6); RBC Distribution Width SD 49.8 fl (35.1-43.9); Red Blood Count 3.34 M/mm3 (4.6-6.2); White Blood Count 4.5 K/mm3 (4.4-11.0)
[2023-08-01 07:29] VITALS: O2SAT 96
[2023-08-01 07:33] LABS: ALB/GLOB Ratio 0.7 RATIO (0.9-2.4); AST(SGOT) 21 U/L (15-37); Alanine Aminotransfer ALT/SGPT 26 U/L (16-61); Albumin, Serum 2.7 g/dL (3.2-5.0); Alkaline Phosphatase 92 U/L (45-117); Anion Gap 4 (5-15); BUN 13 mg/dL (7-18); BUN/Creat Ratio 16.5 RATIO (10-20); Chloride 110 mmol/L (98-107); Creatinine, Serum 0.79 mg/dL (0.70-1.30); EST Glomerular Filtration Rate 101 mL/min (>60); Est Glom Filt Rate - Afr Amer 122 mL/min (>60); Estimated Creatinine Clearance 70.06 ml/min; Glucose 91 mg/dL (74-106); Magnesium 2.2 mg/dL (1.6-2.6); Phosphorus 2.1 mg/dL (2.5-4.9); Potassium 3.7 mmol/L (3.5-5.1); Protein, Total 6.7 g/dL (6.4-8.2); Sodium Level 138 mmol/L (136-145); Thyroid Stim Hormone (TSH) 2.22 uIU/mL (0.358-3.74)
--- NOTE | 2023-08-01 07:56 | PCM.PN.SRG ---
Subjective Subjective Patient evaluated resting comfortably in bed. he notes his pain has decreased to a 4-5 out of 10 this morning. He denies nausea, vomiting, fever. He is feeling a little hungry this morning. Objective Data Objective Data Vital Signs: Vital Signs Temp Pulse Resp BP Pulse Ox O2 Del Method 98.1 F 65 16 99/60 97 Room Air 08/01/23 03:00 08/01/23 03:00 08/01/23 03:00 08/01/23 03:00 08/01/23 03:00 08/01/23 03:00 Oxygen Delivery Method Room Air Weight: 151 lb 3.794 oz Body Mass Index (BMI) 23.0 Intake & Output: Intake and Output for Last 24 Hours 07/30/23 07/31/23 08/01/23 23:59 23:59 23:59 Intake Total 867.08 / 867.08 50 / 50 Output Total 200 / 500 700 / 700 Balance 667.08 / 367.08 -650 / -650 Lab / Micro Data 08/01/23 06:47 08/01/23 06:47 Labs: Laboratory Results - last 24 hr 07/31/23 13:00: WBC 7.6, RBC 3.63 L, Hgb 11.7 L, Hct 35.8 L, MCV 98.6 H, MCH 32.2 H, MCHC 32.7, RDW Std Deviation 49.7 H, RDW Coeff of [place] 13.8, Plt Count 92 L, MPV 10.3, Immature Gran % (Auto) 0.800, Neut % (Auto) 62.1, Lymph % (Auto) 7.7 L, [place] % (Auto) 29.0 H, Eos % (Auto) 0.3, Baso % (Auto) 0.1, Absolute Neuts (auto) 4.7, Absolute Lymphs (auto) 0.58 L, Nucleated RBC % 0, Differential Comment SCANNED, Platelet Estimate SLT DEC, Sodium 139, Potassium 3.7, Chloride 108 H, Carbon Dioxide 27.0, Anion Gap 4 L, BUN 14, Creatinine 0.89, Estim Creat Clear Calc 61.89, Est GFR (MDRD) Af Amer 105, Est GFR (MDRD) Non-Af 87, BUN/Creatinine Ratio 15.7, Glucose 124 H, Calcium 9.4, Total Bilirubin 0.80, AST 23, ALT 27, Alkaline Phosphatase 87, Total Protein 7.5, Albumin 3.2, Globulin 4.3 H, Albumin/Globulin Ratio 0.7 L 07/31/23 13:15: Urine Color Yellow, Urine Clarity Clear, Urine pH 6.0, Ur Specific [place] 1.020, Urine Protein 30 H, Urine Glucose (UA) Normal, Urine Ketones Negative, Urine Occult Blood 50 H, Urine Nitrite Negative, Urine Bilirubin Negative, Urine Urobilinogen Normal, Ur Leukocyte Esterase Negative, Urine RBC 0 SEEN, Urine WBC 0 SEEN, Ur Squamous Epith Cells 0 SEEN, Urine Bacteria 0 SEEN, Urine Mucus 0 SEEN 07/31/23 16:20: PT 15.5 H, INR 1.2, APTT 45.2 H 08/01/23 06:47: WBC 4.5, RBC 3.34 L, Hgb 10.7 L, Hct 32.9 L, MCV 98.5 H, MCH 32.0, MCHC 32.5, RDW Std Deviation 49.8 H, RDW Coeff of [place] 13.6, Plt Count 93 L, MPV 10.2, Immature Gran % (Auto) 0.700, Neut % (Auto) 48.8, Lymph % (Auto) 20.3, [place] % (Auto) 29.1 H, Eos % (Auto) 0.9, Baso % (Auto) 0.2, Absolute Neuts (auto) 2.2, Absolute Lymphs (auto) 0.92, Nucleated RBC % 0, Sodium 138, Potassium 3.7, Chloride 110 H, Carbon Dioxide 24.0, Anion Gap 4 L, BUN 13, Creatinine 0.79, Estim Creat Clear Calc 70.06, Est GFR (MDRD) Af Amer 122, Est GFR (MDRD) Non-Af 101, BUN/Creatinine Ratio 16.5, Glucose 91, Calcium 9.0, Phosphorus 2.1 L, Magnesium 2.2, Total Bilirubin 0.90, AST 21, ALT 26, Alkaline Phosphatase 92, Total Protein 6.7, Albumin 2.7 L, Globulin 4.0, Albumin/Globulin Ratio 0.7 L, TSH 2.22 Radiography Diagnostic Testing: Radiology Impression Abdomen/Pelvis CT 07/31/23 13:20 IMPRESSION: Acute sigmoid diverticulitis 1. There are multiple pancolonic diverticula consistent with diverticulosis. Acute diverticulitis of the sigmoid colon/rectosigmoid junction is present with moderate pericolonic inflammation and edema on the left side and an air distended diverticulum seen on image 87/121 series 2. Moderate edema and thickening is present in the affected portion of the rectosigmoid colon. No abscess or free air is present. 2. Nonobstructing left kidney stones Electronically Signed: Ruben Toussaint MD at 13:51 EST Reading Location ID and State: [facility] / [place] , Service support , Physical Exam GI GI Narrative: Abdomen- lower abdomen tenderness to palpation. Assessment & Plan Assessment/Plan (1) Acute diverticulitis: PLAN: I am seeing this patient in conjunction with Dr. Alvarez Pain is improving Labs reviewed, phosphorus replenished Increase diet to clear liquids this morning, if tolerated will increase to low fiber diet If patient tolerates regular diet, plan for patient to be discharged home on oral antibiotics total 14 day course and low fiber diet Patient would also benefit from a daily stool softener to assist with constipation He will need to follow-up with Dr. 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 Next of kin: [place] law dictates a PRIORITY LIST for identifying legal decision-maker/legal next of kin in the following order (LNOK): 1st: The patient?s legal guardian, if any 2nd: The patient's spouse (if status is questionable, consult Risk Management) 3rd: The patient?s adult child(jose alebrto) (majority, if multiple children) 4th: The patient?s parents 5th: The patient?s adult siblings (majority, if multiple children siblings) Charges/Coding Visit Charges Inpatient E&M: 11270 Subs Hosp L1
[2023-08-01 09:00] VITALS: BP 113/64; PULSE 67; RESP 16; TEMP 36.7; O2SAT 96
--- NOTE | 2023-08-01 09:38 | PCM.PN.HOSP ---
Subjective Subjective Doing well, no issues overnight. Pain is little bit improved Objective Data Objective Data Vital Signs: Vital Signs Temp Pulse Resp BP Pulse Ox O2 Del Method 98.1 F 65 16 99/60 96 Room Air 08/01/23 03:00 08/01/23 03:00 08/01/23 03:00 08/01/23 03:00 08/01/23 07:29 08/01/23 07:29 Oxygen Delivery Method Room Air Weight: 151 lb 3.794 oz Body Mass Index (BMI) 23.0 Intake & Output: Intake and Output for Last 24 Hours 07/31/23 08/01/23 08/02/23 03:59 03:59 03:59 Intake Total 917.08 / 917.08 Output Total 500 / 500 400 / 400 Balance 417.08 / 417.08 -400 / -400 Lab / Micro Data 08/01/23 06:47 08/01/23 06:47 Labs: Laboratory Results - last 24 hr 07/31/23 13:00: WBC 7.6, RBC 3.63 L, Hgb 11.7 L, Hct 35.8 L, MCV 98.6 H, MCH 32.2 H, MCHC 32.7, RDW Std Deviation 49.7 H, RDW Coeff of [place] 13.8, Plt Count 92 L, MPV 10.3, Immature Gran % (Auto) 0.800, Neut % (Auto) 62.1, Lymph % (Auto) 7.7 L, [place] % (Auto) 29.0 H, Eos % (Auto) 0.3, Baso % (Auto) 0.1, Absolute Neuts (auto) 4.7, Absolute Lymphs (auto) 0.58 L, Nucleated RBC % 0, Differential Comment SCANNED, Platelet Estimate SLT DEC, Sodium 139, Potassium 3.7, Chloride 108 H, Carbon Dioxide 27.0, Anion Gap 4 L, BUN 14, Creatinine 0.89, Estim Creat Clear Calc 61.89, Est GFR (MDRD) Af Amer 105, Est GFR (MDRD) Non-Af 87, BUN/Creatinine Ratio 15.7, Glucose 124 H, Calcium 9.4, Total Bilirubin 0.80, AST 23, ALT 27, Alkaline Phosphatase 87, Total Protein 7.5, Albumin 3.2, Globulin 4.3 H, Albumin/Globulin Ratio 0.7 L 07/31/23 13:15: Urine Color Yellow, Urine Clarity Clear, Urine pH 6.0, Ur Specific [place] 1.020, Urine Protein 30 H, Urine Glucose (UA) Normal, Urine Ketones Negative, Urine Occult Blood 50 H, Urine Nitrite Negative, Urine Bilirubin Negative, Urine Urobilinogen Normal, Ur Leukocyte Esterase Negative, Urine RBC 0 SEEN, Urine WBC 0 SEEN, Ur Squamous Epith Cells 0 SEEN, Urine Bacteria 0 SEEN, Urine Mucus 0 SEEN 07/31/23 16:20: PT 15.5 H, INR 1.2, APTT 45.2 H 08/01/23 06:47: WBC 4.5, RBC 3.34 L, Hgb 10.7 L, Hct 32.9 L, MCV 98.5 H, MCH 32.0, MCHC 32.5, RDW Std Deviation 49.8 H, RDW Coeff of [place] 13.6, Plt Count 93 L, MPV 10.2, Immature Gran % (Auto) 0.700, Neut % (Auto) 48.8, Lymph % (Auto) 20.3, [place] % (Auto) 29.1 H, Eos % (Auto) 0.9, Baso % (Auto) 0.2, Absolute Neuts (auto) 2.2, Absolute Lymphs (auto) 0.92, Nucleated RBC % 0, Sodium 138, Potassium 3.7, Chloride 110 H, Carbon Dioxide 24.0, Anion Gap 4 L, BUN 13, Creatinine 0.79, Estim Creat Clear Calc 70.06, Est GFR (MDRD) Af Amer 122, Est GFR (MDRD) Non-Af 101, BUN/Creatinine Ratio 16.5, Glucose 91, Calcium 9.0, Phosphorus 2.1 L, Magnesium 2.2, Total Bilirubin 0.90, AST 21, ALT 26, Alkaline Phosphatase 92, Total Protein 6.7, Albumin 2.7 L, Globulin 4.0, Albumin/Globulin Ratio 0.7 L, TSH 2.22 Radiography Diagnostic Testing: Radiology Impression Abdomen/Pelvis CT 07/31/23 13:20 IMPRESSION: Acute sigmoid diverticulitis 1. There are multiple pancolonic diverticula consistent with diverticulosis. Acute diverticulitis of the sigmoid colon/rectosigmoid junction is present with moderate pericolonic inflammation and edema on the left side and an air distended diverticulum seen on image 87/121 series 2. Moderate edema and thickening is present in the affected portion of the rectosigmoid colon. No abscess or free air is present. 2. Nonobstructing left kidney stones Electronically Signed: Ruben Toussaint MD at 13:51 EST Reading Location ID and State: [facility] / [place] , Service support , Physical Exam Narrative General: Alert, Oriented x3, Cooperative, No apparent distress HEENT: Atraumatic, PERRLA, EOMI, Normocephalic Oral: Moist Mucosa Neck: Supple, No JVD Lungs: Diminished, Normal air movement, No rhonchi, No wheeze, No rales Cardiovascular: Regular rate, Regular Rhythm, Normal S1, Normal S2, No murmurs Abdomen: Soft, minimally tender, Non-Distended, No Hepato-splenomegaly Extremities: No edema, Capillary Refill Less than 3 Seconds Skin: No rashes, No breakdown Musculoskeletal: No Tenderness to Palpation of Joints or Extremities Neurological: Cranial nerves II-XII grossly intact, Motor Exam 5/5 strength throughout, Sensory exam intact to light touch and pain Psych/Mental Status: Normal Affect, Appropriate Assessment & Plan Assessment/Plan (1) Abdominal pain: (2) Acute diverticulitis: (3) Weight loss: (4) BPH with obstruction/lower urinary tract symptoms: PLAN: Plan 1. Mild diverticulitis ? Will advance his diet per general surgery ? Will plan for discharge on Augmentin when ready if he is tolerating a diet ? Will need a colonoscopy as an outpatient 2. HTN/HLD/AAA ? Blood pressures are stable ? Continue with his home blood pressure and cholesterol medications ? Will monitor and make adjustments as necessary ? Echo with an EF of 65% and RVSP of 21 mmHg no evidence of diastolic dysfunction ? Outpatient monitoring for his AAA 3. Weight loss with concerns for occult malignancy ? Initially seeing [facility] oncology however went to [facility] for second opinion still unable to find a reason for his weight loss ? Pancytopenia is very mild and he said multiple chest and abdominal scans without any signs of malignancy ? Continue with outpatient follow-up ? Would benefit from EGD and colonoscopy with biopsies to rule out nutritional deficiency though lab work has not shown any significant nutritional deficiency 4. BPH ? Stable ? 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 Next of kin: [place] law dictates a PRIORITY LIST for identifying legal decision-maker/legal next of kin in the following order (LNOK): 1st: The patient?s legal guardian, if any 2nd: The patient's spouse (if status is questionable, consult Risk Management) 3rd: The patient?s adult child(jose alberto) (majority, if multiple children) 4th: The patient?s parents 5th: The patient?s adult siblings (majority, if multiple children siblings) Charges/Coding Visit Charges Inpatient E&M: 45656 Subs Hosp L2
[2023-08-01] MEDS: Potassium Phosphate 15 MM in 0.9% Normal Saline (250mL Bag) 250 ML 125 MM IV (10:16)
[2023-08-01] MEDS: Aspirin E.C. 81 MG Tablet PO (10:16)
[2023-08-01] MEDS: Atenolol 25 MG Tablet 12.5 MG PO (10:17)
[2023-08-01] MEDS: Isosorbide Mononitrate 30 MG Tablet PO (10:17)
[2023-08-01] MEDS: Enoxaparin 40 MG/0.4 ML Syringe SC (10:17)
[2023-08-01] MEDS: Losartan Potassium 25 MG Tablet PO (10:17)
[2023-08-01] MEDS: 0.9% Normal Saline (1000mL) 1,000 ML 75 ML IV (10:22)
[2023-08-01 15:00] VITALS: BP 118/66; PULSE 68; RESP 18; TEMP 36.6; O2SAT 97
--- NOTE | 2023-08-01 16:16 | CASEMGMT ---
ELAN CM into pt room, pt lying in bed with at bedside. Pt states he is typically I in ADL's. He does have a cane at home should he need to use it. is available to assist him at home if needed. Pt denies any homegoing needs.
--- NOTE | 2023-08-01 16:26 | DCINST_ITS ---
Discharge Instructions Diet Discharge Diet: Low fat / Low cholesterol Activity Discharge Activity: Return to Normal Activity Dressing / Incision Call your doctor if you observe: Fever of 101 or Higher, Shortness of breath, Dizziness, Fainting spells, Swelling in the ankles, Chest pain and Increased palpitations (irregular heartbeat) Follow Up Care Test Results: Test results from this visit will be discussed in further detail at your follow- up appointment, if applicable. Discharge Plan Admission Admit Date/Time: 07/31/23 16:01 Attending Provider: Freddy Silverman Primary Care Provider: Radha Olivas Consulting Providers: Anand Alvarez; Sona Fierro Discharge Orders/Prescriptions Prescriptions: New tamsulosin 0.4 mg Capsule 0.4 mg PO DAILY@1730 30 Days Qty: 30 0RF amoxicillin-pot clavulanate 875-125 mg tablet 1 tab PO BID 9 Days Qty: 18 0RF Continued simvastatin 40 mg tablet 20 mg PO QHS aspirin 81 MG tablet 81 mg PO DAILY nitroglycerin 0.4 mg tablet, sublingual 0.4 mg SL Q5-15M PRN (Reason: CHEST PAIN ) Rx Instructions: DO NOT EXCEED THREE DOSES PER EPISODE. atenolol 25 mg tablet 12.5 mg PO DAILY isosorbide mononitrate 30 mg tablet extended release 24 hr 30 mg PO DAILY Qty: 90 3RF losartan 25 mg tablet 25 mg PO DAILY Qty: 90 3RF Referrals / Follow Up: Rdaha Olivas DO [Primary Care Provider] - Within 1 Week Anand Alvarez MD [Med Staff - Active Staff] - Within 1 Month Disposition Disposition (needs filled in before D/C Order can be placed): Home, Self Care
--- NOTE | 2023-08-01 16:29 | PCM.DC.SUM ---
Providers Date of Admission: 07/31/23 Date of Discharge: 08/01/23 Primary Care Physician: Dr. Radha Olivas, Consultations 07/31/23 17:19 Consult: General Surgery Routine Consulting Provider: Anand Alvarez Reason for Consult: Acute Diverticulitis EMERGENT Consult: No MD Notified: Yes Date Notified: 07/31/23 Time Notified: 16:02 Method of Notification: ED Physician Initiated Reason For Visit: ACUTE DIVERTICULITIS Diagnosis Discharge Diagnosis (1) Abdominal pain: Status: Acute Code(s): R10.9 - Unspecified abdominal pain (2) Acute diverticulitis: Status: Acute Code(s): K57.92 - Diverticulitis of intestine, part unspecified, without perforation or abscess without bleeding (3) Weight loss: Status: Acute Code(s): R63.4 - Abnormal weight loss (4) BPH with obstruction/lower urinary tract symptoms: Status: Acute Code(s): N40.1 - Benign prostatic hyperplasia with lower urinary tract symptoms; N13.8 - Other obstructive and reflux uropathy Medications at Discharge Home Medications aspirin 81 mg tablet,delayed release 81 mg PO DAILY HEART HEALTH 04/28/13 simvastatin 40 mg tablet 20 mg PO QHS CHOLESTEROL 08/07/22 isosorbide mononitrate 30 mg tablet,extended release 24 hr 30 mg PO DAILY CHEST PAIN #90 tabs 11/12/22 losartan 25 mg tablet 25 mg PO DAILY BLOOD PRESSURE #90 tabs 03/22/23 atenolol 25 mg tablet 12.5 mg PO DAILY BLOOD PRESSURE 07/31/23 nitroglycerin 0.4 mg sublingual tablet 0.4 mg sublingual Q5-15M PRN CHEST PAIN 07/31/23 amoxicillin 875 mg-potassium clavulanate 125 mg tablet 1 tab PO BID 9 days #18 tabs 08/01/23 tamsulosin 0.4 mg capsule 0.4 mg PO DAILY@1730 30 days #30 caps 08/01/23 Hospital Course Operations None Procedures None Summary of Care Provided Minutes Spent on Discharge: 41 Hospital Course: Per HPI: YAIR MCCORD, is a 82 M who presented to the emergency department at [facility] on 07/31/2023 complaining of right lower quadrant pain that has been ongoing for about a week now. He has not had to alter his oral intake at all but the pain has been persistent and getting worse. He reported sometimes it was very severe. He denies any fevers but did have temperature elevations up to 99.5 at home with the most recent being last evening. He is complaining of some mild dysuria and has history of enlarged prostate with frequent urination. He does have a history of kidney stones and when he came in he thought he may be passing a kidney stone. He had no nausea or vomiting. He states he is chronically constipated and has to strain significantly with having a bowel movement. He has had colonoscopy but believes his last one has been greater than 10 years ago. He denies any blood in his stool. He has chronic pancytopenia and was following with Dr. Vieira and most recently has seen Dr. Vines for this and workup is in progress. He complains of having about a 30 pound weight loss in the last year and has not been trying to lose weight. He states that he has not discussed this with his primary care physician and also has not discussed his urinary issues either. Vital signs on presentation showed temperature of 98.9, heart rate 103, blood pressure is 123/69, respiratory was 18 oxygen saturations were 97% on room air. His CBC showed a anemia with a hemoglobin of 11.7 and a thrombocytopenia with a platelet count of 92,000. These are both chronic and stable relatively speaking. He does not have an elevated white count or left shift. He does have a significant monocytosis with a 29% monocytosis on his differential. Coags are slightly elevated with a normal INR 1.2. PT was 15.5 and PTT was 45.2. His chemistry panel was overall unremarkable. UA showed some occult blood and protein but no signs of infection. CT of the abdomen pelvis was performed and showed multiple pancolonic diverticuli consistent with diverticulosis and acute diverticulitis of the sigmoid colon/rectosigmoid junction with moderate pericolonic inflammation and edema on the left side and an air distended diverticulum with moderate edema and thickening of the rectosigmoid colon without abscess or free air as well as a nonobstructing left kidney stone. The emergency department discussed the case with general surgery and despite him having a normal white count and able to take p.o. they recommended inpatient treatment, therefore we were called for admission. In the emergency department he received IV fluids as well as oral Augmentin and then Zosyn. Hospital Course: 1. Mild diverticulitis?82-year-old male with a history of weight loss presents to the hospital with abdominal pain. He says that he has had multiple intermittent episodes of abdominal pain over the last couple months that usually resolve after a day or 2 but this [address] scan of his abdomen and pelvis demonstrated an area of diverticulitis but he did not have a white count and he was able to tolerate a diet. He was slowly advanced throughout the day today and surgery evaluated him later in the afternoon and felt that he would be safe for discharge. He has been on IV Zosyn and so will be discharged on 9 more days of Augmentin. I recommend that he follow-up with his PCP in 3 to 5 days as well as surgery within the month for further evaluation of his diverticulitis. He will likely need colonoscopy as an outpatient further evaluation. He is also currently being worked up by [facility] oncology for this weight loss. He was recently being seen by [facility] oncology and their records do not point to any significant occult malignancy at this time but he is unclear as to where his weight loss is coming from. His does say that he eats well so there might be a malabsorptive component. This will be followed up as an outpatient as well. 2. Hypertension, hyperlipidemia, AAA, BPH are all chronic medical conditions which complicate his care. His home medications were continued where appropriate. Of note, he was not on any medications on admission for BPH but he states he has been evaluated for this as an outpatient just not started on any medications so we will go ahead and start him on Flomax and have him follow-up with his PCP for possible referral to urology Weight / BMI Weight Weight: 151 lb 3.794 oz Body Mass Index (BMI) 23.0 ABG / Lab / Microbiology Data 08/01/23 06:47 08/01/23 06:47 Laboratory: Laboratory Results - last 24 hr 07/31/23 16:20: PT 15.5 H, INR 1.2, APTT 45.2 H 08/01/23 06:47: WBC 4.5, RBC 3.34 L, Hgb 10.7 L, Hct 32.9 L, MCV 98.5 H, MCH 32.0, MCHC 32.5, RDW Std Deviation 49.8 H, RDW Coeff of [place] 13.6, Plt Count 93 L, MPV 10.2, Immature Gran % (Auto) 0.700, Neut % (Auto) 48.8, Lymph % (Auto) 20.3, [place] % (Auto) 29.1 H, Eos % (Auto) 0.9, Baso % (Auto) 0.2, Absolute Neuts (auto) 2.2, Absolute Lymphs (auto) 0.92, Nucleated RBC % 0, Sodium 138, Potassium 3.7, Chloride 110 H, Carbon Dioxide 24.0, Anion Gap 4 L, BUN 13, Creatinine 0.79, Estim Creat Clear Calc 70.06, Est GFR (MDRD) Af Amer 122, Est GFR (MDRD) Non-Af 101, BUN/Creatinine Ratio 16.5, Glucose 91, Calcium 9.0, Phosphorus 2.1 L, Magnesium 2.2, Total Bilirubin 0.90, AST 21, ALT 26, Alkaline Phosphatase 92, Total Protein 6.7, Albumin 2.7 L, Globulin 4.0, Albumin/Globulin Ratio 0.7 L, TSH 2.22 D/C Instructions Discharge Diet: Low fat / Low cholesterol Call your doctor if you observe: Fever of 101 or Higher, Shortness of breath, Dizziness, Fainting spells, Swelling in the ankles, Chest pain and Increased palpitations (irregular heartbeat) Meaningful Use Info Meaningful Use Diagnoses (Choose all that apply): None applicable Discharge Plan Admission Admit Date/Time: 07/31/23 16:01 Attending Provider: Freddy Silverman Primary Care Provider: Radha Olivas Consulting Providers: Anand Alvarez; Sona Fierro Discharge Orders/Prescriptions Prescriptions: New tamsulosin 0.4 mg Capsule 0.4 mg PO DAILY@1730 30 Days Qty: 30 0RF amoxicillin-pot clavulanate 875-125 mg tablet 1 tab PO BID 9 Days Qty: 18 0RF Continued simvastatin 40 mg tablet 20 mg PO QHS aspirin 81 MG tablet 81 mg PO DAILY nitroglycerin 0.4 mg tablet, sublingual 0.4 mg SL Q5-15M PRN (Reason: CHEST PAIN ) Rx Instructions: DO NOT EXCEED THREE DOSES PER EPISODE. atenolol 25 mg tablet 12.5 mg PO DAILY isosorbide mononitrate 30 mg tablet extended release 24 hr 30 mg PO DAILY Qty: 90 3RF losartan 25 mg tablet 25 mg PO DAILY Qty: 90 3RF Referrals / Follow Up: Radha Olivas DO [Primary Care Provider] - Within 1 Week Anand Alvarez MD [Med Staff - Active Staff] - Within 1 Month Disposition Disposition (needs filled in before D/C Order can be placed): Home, Self Care Charges/Coding Visit Charges Inpatient E&M: 61702 Disch Hosp >30min
[2023-08-01] MEDS: Tamsulosin HCl 0.4 MG Capsule 0.400000000000000022 MG PO (17:17)
--- NOTE | 2023-08-01 18:04 | CASEMGMT ---
Met with patient to complete ANNA form. ANNA form explained to?patient who voiced understanding and signed form. Original form placed in pt?s chart and copy provided to?patient. Alicia Hernandez, Discharge Planning Asst
== END 2023-08-01 17:45 | disposition home or self-care (01) ==
LOC: ED 15:53 → MS2 16:32
PROVIDERS: Admitting Provider Internal Medicine; Emergency Provider Emergency Medicine; PCP Internal Medicine; Visit Provider Family Medicine
DX: K57.92 Diverticulitis of intestine, part unspecified, without perforation or abscess without bleeding (principal); D61.818 Other pancytopenia; I71.40 Abdominal aortic aneurysm, without rupture, unspecified; N40.1 Benign prostatic hyperplasia with lower urinary tract symptoms; E78.2 Mixed hyperlipidemia; I25.10 Atherosclerotic heart disease of native coronary artery without angina pectoris; R63.4 Abnormal weight loss; N13.8 Other obstructive and reflux uropathy; R30.0 Dysuria; Z79.82 Long term (current) use of aspirin; I10 Essential (primary) hypertension; R35.0 Frequency of micturition; K21.9 Gastro-esophageal reflux disease without esophagitis; Z79.899 Other long term (current) drug therapy
CPT/HCPCS: 36415; 74176; 80053; 81001; 83735; 84100; 84443; 85025; 85610; 85730; 94668; 96361; 96365; 96366; 96368; 96372; 96375; 97802; 99221; 99252; 99284; J7030; J7050; A4216; G0378; G0463; J2405

== ENCOUNTER → 2023-08-23 | Outpatient (CLI) | payer MEDICARE, SELFPAY ==
--- NOTE | 2023-08-23 06:50 | CT_ITS ---
STUDY: CT CHEST WITHOUT CONTRAST REASON FOR EXAM: Male, 82 years old. Weight loss, abnormal RADIATION DOSAGE (If Supplied By Facility): CTDIvol = ( 9.22 ) mGy, DLP = ( 357.27 ) mGycm TECHNIQUE: Transaxial imaging was performed without the administration of intravenous contrast material. Multiplanar coronal and sagittal images were reformatted. Individualized dose optimization techniques were used for this CT. COMPARISON: No relevant priors. FINDINGS: CHEST Minimal scarring along the lateral posterior aspect of the right lung apex as seen on axial image #20 There is no demonstrated pleural abnormality. There are calcifications of the coronary arteries. Normal mediastinum. Calcified left hilar lymph nodes. Normal unenhanced pulmonary arteries. There is atherosclerotic calcification of the aortic arch. Normal osseous structures. Small gallstones are seen in the neck of the gallbladder. There is a 4.1 cm cyst in the upper pole of the left kidney. There is a 3.7 cm cyst in the mid medial aspect of the right kidney. CT/Chest without Contrast IMPRESSION: Minimal scarring seen along the lateral posterior aspect of the right lung apex. Bilateral renal cysts. Small gallstones in the neck of the gallbladder. Electronically Signed: Sukhdeep Stewart MD at 10:58 EST ,
== END | disposition home or self-care (01) ==
LOC: CT 06:49
PROVIDERS: PCP Internal Medicine; Referring Provider Internal Medicine; Visit Provider Internal Medicine
DX: R63.4 Abnormal weight loss (principal)
CPT/HCPCS: 71250

== ENCOUNTER 2023-09-26 06:15 | Day surgery (SDC) | payer MEDICARE, SELFPAY ==
[2023-09-26 06:40] VITALS: BP 116/66; PULSE 61; RESP 16; TEMP 36.3; O2SAT 100; BMI 21.2
[2023-09-26] MEDS: 0.9% Normal Saline (1000mL) 1,000 ML 15 ML IV (06:47)
--- NOTE | 2023-09-26 07:33 | HP.PCM_ITS ---
History and Physical Date of Admission: 09/26/23 Date of Service: 08/22/23 MR#: [id number] Acct: [id number] Name: YAIR MCCORD Rep #: [id number] : 1940 Provider: Dr. 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: No Accompanied by: Is patient in pain?: No Allergies amoxicillin [From Augmentin] Allergy (Intermediate, Verified 08/22/23 14:28) Rashclavulanic acid [From Augmentin] Allergy (Intermediate, Verified 08/22/23 14:28) Rashciprofloxacin [From Cipro] Allergy (Verified 08/22/23 14:28) Hivesatorvastatin [From Lipitor] Adverse Reaction (Intermediate, Verified 08/22/23 14:28) Myalgiaslovastatin [From Mevacor] Adverse Reaction (Intermediate, Verified 08/22/23 14:28) Myalgiaslisinopril Adverse Reaction (Mild, Verified 08/22/23 14:28) Cough Medications aspirin 81 mg tablet,delayed release 81 mg PO DAILY HEART HEALTH 04/28/13 [History Confirmed 08/22/23] simvastatin 40 mg tablet 20 mg PO QHS CHOLESTEROL 08/07/22 [History Confirmed 08/22/23] isosorbide mononitrate 30 mg tablet,extended release 24 hr 30 mg PO DAILY CHEST PAIN #90 tabs 11/12/22 [Rx Confirmed 08/22/23] losartan 25 mg tablet 25 mg PO DAILY BLOOD PRESSURE #90 tabs 03/22/23 [Rx Confirmed 08/22/23] atenolol 25 mg tablet 12.5 mg PO DAILY BLOOD PRESSURE 07/31/23 [History Confirmed 08/22/23] nitroglycerin 0.4 mg sublingual tablet 0.4 mg sublingual Q5-15M PRN CHEST PAIN 07/31/23 [History Confirmed 08/22/23] tamsulosin 0.4 mg capsule 0.4 mg PO DAILY@1730 30 days #30 caps 08/01/23 [Rx Confirmed 08/22/23] [facility] Medical History Abdominal aortic aneurysm (AAA) Actinic keratosis Adverse drug reaction Allergic rhinitis Anemia Atherosclerotic heart disease of [place] coronary artery without angina pectoris Atherosclerotic heart disease of [place] coronary artery without angina pectoris Back pain Benign hematuria Bilateral inguinal hernia without obstruction or gangrene CAD (coronary artery disease) Carotid stenosis Chest pain Coronary artery disease Coronary atherosclerosis of [place] coronary vessel Cyst of left kidney Diverticulosis Essential hypertension Family history of CVA Gallstones GERD (gastroesophageal reflux disease) Hay fever History of left heart catheterization (LHC) (~10/24/99) Hypercholesterolemia Hyperlipidemia Hypertension Hypertension Iron deficiency Kidney stones Limb weakness Long-term use of high-risk medication Macrocytosis Memory impairment Mitral valve disorder Mixed hyperlipidemia ASHLEY (obstructive sleep apnea) Other seborrheic keratosis Pancytopenia Pancytopenia Premature ventricular contraction Pure hypercholesterolemia Thrombocytopenia Vitamin D deficiency Yeast infection of the skin Surgical History History of cystoscopy History of hernia surgery History of removal of neck cyst Hx of appendectomy Family History Father CAD (coronary artery disease) Diabetes Cancer prostate Myocardial infarctionSister CVA (cerebral vascular accident)Mother Emphysema, unspecified COPD (chronic obstructive pulmonary disease) Right heart failure Social History household members: spouse Smoking Status: Never smoker how long ago did patient quit smokin years ago alcohol intake: current details: rare substance use type: does not use caffeine: Yes Type: coffee Number of servings: 1 HPI HPI HPI: Patient is a 82-year-old male who presents for follow-up of recent inpatient visit for diverticulitis. He presents today with his . He states that he is feeling better lately. He denies any fevers or chills at home. He denies any abdominal pain. He remarks that he is still with some constipation, but shares that immediately after his hospitalization he had rather loose bowels. He questions whether or not it is okay to remain on stool softeners and definitely and his immediately interrupts that it does not, however, both confirm his history of impaction and manual disimpaction through the emergency department. Apart from this update they have some questions related to what Mr. Mccord's diet should be ongoing. They also once again question whether or not Mr. Mccord's right flank pain is related to his diverticular disease and shared that this has been recently flared up with some walking together. ROS General General: Yes weight change (loss) and fatigue Cardio Cardiovascular: Yes heart disease Gastro Gastrointestinal: Yes constipation Clyde Hematologic: Yes blood thinners and Yes blood disorders Additional Details: pancytopenia Exam Const General: cooperative and comfortable Nutritional Appearance: thin Orientation: alert, awake and oriented x3 Resp Effort & Inspection: normal respiratory effort GI Other: No scars, nondistended, soft, nontender to palpation x 4 quadrants. General: No CVA tenderness Assessment and Plan Assessment and Plan (1) Acute diverticulitis: Status: Acute Comment: This is an 82-year-old male whose diverticulitis appears to be symptomatically?resolved through conservative measures with antibiotics. His exam confirms this resolution. I held a rather detailed conversation with both him and his regarding digestive physiology, Mr. Mccord's experience of diverticulitis and CT pictures (reviewed with them directly), and plans for ongoing management of his constipation. I recommended to them at this point that he begin to be more diligent about ingesting a high-fiber diet with plenty of water. More specifically 25 g of dietary fiber were recommended. I shared that I would recommend routine use of stool softeners and/or prokinetic agents to try to achieve 1 soft bowel movement a day and contrasted this to risks of further diverticular disease, fecal impaction, and stercoral ulcers?. The Shanae's were understanding of this information and stated they plan to make some changes. In addition, I reiterated my intent to proceed with a update colonoscopy has been a dozen years since his last colonoscopy. They are also on board with this recommendation and a copy of the 2-day bowel prep was shared with patient. A final date is yet to be set with scheduling. Plan: ? Recommend high-fiber diet with plenty of water ? Diagnostic colonoscopy to be performed through 2-day bowel prep, no sooner than 5 weeks from today to allow for colon healing. I have examined the patient and the H&P has been reviewed. There are no clinical changes since date of exam. Patient confirms that he completed his prep in anticipation of today's procedure and that his output is now clear. Unfortunately, he describes some persistent constipation but admits that he has not been using any laxative agents. His , who accompanies him, also suggest that his water intake has been somewhat suboptimal. Will now proceed to the endoscopy suite for diagnostic colonoscopy following a bout of acute diverticulitis earlier this year.
[2023-09-26 08:12] VITALS: BP 116/66; BP 86/66; PULSE 67; RESP 16; TEMP 36.2; O2SAT 100
--- NOTE | 2023-09-26 08:14 | OP.COLON_ITS ---
Patient Name: Dhaval Jolly Procedure Date: 09/26/2023 7:24 AM Date of : 1940 Age: 82 Procedure: Colonoscopy Indications: Follow-up of diverticulitis Providers: Anand Alvarez MD Referring MD: Radha Olivas Medicines: See the Anesthesia note for documentation of the administered medications Patient Profile: Last Colonoscopy: more than 10 years ago. Complications: No immediate complications. Estimated blood loss: None. Procedure: Pre-Anesthesia Assessment: - The heart rate, respiratory rate, oxygen saturations, blood pressure, adequacy of pulmonary ventilation, and response to care were monitored throughout the procedure. After I obtained informed consent, the scope was passed under direct vision. Throughout the procedure, the patient's blood pressure, pulse, and oxygen saturations were monitored continuously. The Colonoscope was introduced through the anus and advanced to the cecum, identified by its appearance. The colonoscopy was somewhat difficult due to multiple diverticula in the colon. Successful completion of the procedure was aided by straightening and shortening the scope to obtain bowel loop reduction. The patient tolerated the procedure well. The quality of the bowel preparation was excellent. Scope In: 7:43:58 AM Scope Withdrawal Time 0 hours 12 minutes 53 seconds Scope Out: 8:05:19 AM Total Procedure Duration Time 0 hours 21 minutes 21 seconds Findings: Many small and large-mouthed diverticula were found in the entire colon. No biopsies or other specimens were collected for this exam. Estimated blood loss: none. Internal hemorrhoids were found during retroflexion. The hemorrhoids were medium-sized and Grade I (internal hemorrhoids that do not prolapse). No biopsies or other specimens were collected for this exam. The exam was otherwise without abnormality. Impression: - Diverticulosis in the entire examined colon. No specimens collected. - Internal hemorrhoids. No specimens collected. - The examination was otherwise normal. Recommendation: - Discharge patient to home (via wheelchair). - High fiber diet today. - Continue present medications. - Repeat colonoscopy is not recommended due to current age (66 years or older). - Telephone my office for study results in 1 week. Procedure Code(s): --- Professional --- 44539, Colonoscopy, flexible; diagnostic, including collection of specimen(s) by brushing or washing, when performed (separate procedure) Diagnosis Code(s): --- Professional --- K64.0, First degree hemorrhoids K57.32, Diverticulitis of large intestine without perforation or abscess without bleeding K57.30, Diverticulosis of large intestine without perforation or abscess without bleeding CPT copyright 2021 [employer]. All rights reserved. The codes documented in this report are preliminary and upon auditing coder review may be revised to meet current compliance requirements. Anand Alvarez MD 09/26/2023 8:14:21 AM This report has been signed electronically. Number of Addenda: 0 Note Initiated On: 09/26/2023 7:24 AM
--- NOTE | 2023-09-26 08:14 | OP.CCLET_ITS ---
09/26/2023 Radha Olivas [address] [place] [address] Re : Colonoscopy procedure for Dhaval Jolly Dear Dr. Olivas This procedure was performed on September. My impressions and recommendations are as follows: Impressions : - Diverticulosis in the entire examined colon. No specimens collected. - Internal hemorrhoids. No specimens collected. - The examination was otherwise normal. Recommendations : - Discharge patient to home (via wheelchair). - High fiber diet today. - Continue present medications. - Repeat colonoscopy is not recommended due to current age (66 years or older). - Telephone my office for study results in 1 week. My findings are described in the full procedure note, which is enclosed. If I can be of further assistance, please feel free to contact me at Doctor phone number(s): , Work: . Sincerely, Anand Alvarez MD 09/26/2023 8:14:21 AM This report has been signed electronically.
[2023-09-26 08:15] VITALS: BP 116/66; BP 76/65; PULSE 65; RESP 16; O2SAT 98
[2023-09-26 08:20] VITALS: BP 116/66; BP 97/74; PULSE 66; RESP 16; O2SAT 100
[2023-09-26 08:25] VITALS: BP 116/66; BP 95/59; PULSE 65; RESP 16; TEMP 36.1; O2SAT 98
[2023-09-26 08:46] VITALS: BP 116/66
== END 2023-09-26 09:05 | disposition home or self-care (01) ==
LOC: EN 06:16 → AC 06:17
PROVIDERS: PCP Internal Medicine; Referring Provider Internal Medicine; Visit Provider Surgery
PROC: 0DJD8ZZ Inspection of Lower Intestinal Tract, Via Natural or Artificial Opening Endoscopic (ICD-10-PCS; CPT 45378; principal; 2023-09-26 07:25)
DX: K57.30 Diverticulosis of large intestine without perforation or abscess without bleeding (principal); I25.10 Atherosclerotic heart disease of native coronary artery without angina pectoris; K64.0 First degree hemorrhoids; I10 Essential (primary) hypertension; G47.33 Obstructive sleep apnea (adult) (pediatric); E78.00 Pure hypercholesterolemia, unspecified; Z79.82 Long term (current) use of aspirin; Z79.899 Other long term (current) drug therapy; Z87.891 Personal history of nicotine dependence
CPT/HCPCS: 45378; J7120; J2405

== ENCOUNTER → 2023-10-02 | Outpatient (CLI) | payer MEDICARE, SELFPAY ==
[2023-10-02 12:35] LABS: Cholesterol 107 mg/dL (200); High Density Lipoprotein 42 mg/dL; Triglycerides 65 mg/dL; Very Low Density Lipoprotein 13 mg/dL (5-40)
== END | disposition home or self-care (01) ==
LOC: LAB 11:31
PROVIDERS: PCP Internal Medicine; Referring Provider Internal Medicine Cardiovascular Disease; Visit Provider Internal Medicine Cardiovascular Disease
DX: E78.00 Pure hypercholesterolemia, unspecified (principal)
CPT/HCPCS: 36415; 80061

== ENCOUNTER → 2023-10-29 | Outpatient (CLI) | payer MEDICARE, SELFPAY | END | disposition home or self-care (01) | LOC: LABSPEC 08:51 | PROVIDERS: PCP Internal Medicine; Visit Provider Surgery | DX: L72.9 Follicular cyst of the skin and subcutaneous tissue, unspecified (principal) | CPT/HCPCS: 87070; 87075; 87077; 87205 ==

== ENCOUNTER 2023-11-05 15:37 | Inpatient (IN) | payer MEDICARE, SELFPAY ==
[2023-11-05] VITALS (24 sets, daily range): BP systolic 106–144; BP diastolic 59–77; PULSE 51–87; RESP 10–32; TEMP 36.2–36.6; O2SAT 98–100; BMI 21.4
--- NOTE | 2023-11-05 16:00 | RAD_ITS ---
INDICATION: chest pain EXAMINATION/TECHNIQUE: X-RAY - XR Chest 1 View COMPARISON: FINDINGS: LINES/DEVICES: None. LUNGS: No consolidation, edema or effusion. No pneumothorax. MEDIASTINUM AND CARDIOVASCULAR STRUCTURES: Cardiac silhouette not enlarged. Central airways and mediastinal contour are unremarkable. BONES AND SOFT TISSUES: Degenerative vertebral changes. RAD/Chest 1 View (Portable) IMPRESSION: No radiographic evidence of acute cardiopulmonary disease. Electronically Signed: Jayro Manzanares DO at 16:55 EDT ,
--- NOTE | 2023-11-05 16:00 | EKG12_ITS ---
Test Reason : CP Blood Pressure : / mmHG Vent. Rate : 049 BPM Atrial Rate : 049 BPM P-R Int : 152 ms QRS Dur : 086 ms QT Int : 436 ms P-R-T Axes : 028 053 047 degrees QTc Int : 393 ms Sinus bradycardia Otherwise normal ECG Confirmed by CLIFF ANDREA, KRISTEN ([id number]), health editor RUPERTO POON ([id number]) on 11/11/2023 1:40:23 PM Referred By: Confirmed By:SAMPSON CORONADO MD
--- NOTE | 2023-11-05 16:01 | ED.VIS.CHEST ---
HPI History of Present Illness Chief Complaint: Chest Pain Narrative Narrative: 82-year-old male past medical history of AAA, coronary artery disease, presents with chest pain and pressure that he had yesterday while walking, then again today. His relates history that they are avid walkers and cyclist's, and yesterday, he went for a walk, but could not make it as far as previously. As he rested, his chest pressure went away. Today, she states that he came up from his office and stated that he did not feel well. He complained of chest pressure as well. He had broken out in a cold sweat previously. He may have been nauseated but no vomiting. Also he may have been slightly short of breath. He does have past medical history of lymphoma with varying white blood cell counts. Recently, he was at Dr. Alvarez's office today, general surgery, for lancing of a sebaceous cyst that was infected on his abdomen. He was sent here because of the reported chest pain that he had earlier today and yesterday. He states that his last stress test was probably 3 years ago. Someone wrote him a prescription for nitroglycerin which she took 2 of today which relieved his chest pain. [facility] Medical History Abdominal aortic aneurysm (AAA) Actinic keratosis Adverse drug reaction Alcohol use Allergic rhinitis Anemia Anxiety Atherosclerotic heart disease of [place] coronary artery without angina pectoris Atherosclerotic heart disease of [place] coronary artery without angina pectoris Back pain Benign hematuria Bilateral inguinal hernia without obstruction or gangrene CAD (coronary artery disease) Cancer Cardiology follow-up encounter Carotid stenosis Chest pain Coronary artery disease Coronary atherosclerosis of [place] coronary vessel Cyst of left kidney Cyst of skin Depression Diverticulosis Easy bruising Essential hypertension Excessive bleeding Family history of CVA Former smoker Gallstones GERD (gastroesophageal reflux disease) Hay fever High cholesterol History of diverticulitis History of echocardiogram History of left heart catheterization (LHC) (~10/24/99) History of stress test Hoarseness Hypercholesterolemia Hyperlipidemia Hypertension Iron deficiency Kidney stones Limb weakness Long-term use of high-risk medication Lymphoma Macrocytosis Memory impairment Mitral valve disorder Mixed hyperlipidemia ASHLEY (obstructive sleep apnea) Other seborrheic keratosis Pancytopenia Pancytopenia Premature ventricular contraction Prostate disease Pure hypercholesterolemia Shortness of breath on exertion Sleep apnea Thrombocytopenia Vitamin D deficiency Wears dentures Wears glasses Wears partial dentures Yeast infection of the skin Home Medications aspirin 81 mg tablet,delayed release 81 mg PO DAILY HEART HEALTH 04/28/13 [History Last Taken 09/24/23] losartan 25 mg tablet 25 mg PO DAILY BLOOD PRESSURE #90 tabs 03/22/23 [Rx Last Taken 07/31/23] atenolol 25 mg tablet 12.5 mg PO DAILY BLOOD PRESSURE 07/31/23 [History Last Taken 09/26/23] tamsulosin 0.4 mg capsule 0.4 mg PO DAILY@1730 30 days #30 caps 08/01/23 [Rx Last Taken Unknown] nitroglycerin 0.4 mg sublingual tablet 0.4 mg sublingual Q5-15M PRN CHEST PAIN #30 tabs 09/12/23 [Rx Last Taken Unknown] isosorbide mononitrate 30 mg tablet,extended release 24 hr 30 mg PO DAILY CHEST PAIN #90 tabs 10/24/23 [Rx Last Taken Unknown] simvastatin 20 mg tablet 20 mg PO QHS CHOLESTEROL #90 tabs 10/24/23 [Rx Last Taken Unknown] Allergy/AdvReac Type Severity Reaction Status Date / Time amoxicillin [From Augmentin] Allergy Intermediate Rash Verified 11/05/23 15:40 clavulanic acid Allergy Intermediate Rash Verified 11/05/23 15:40 [From Augmentin] ciprofloxacin [From Cipro] Allergy Hives Verified 11/05/23 15:40 atorvastatin [From Lipitor] AdvReac Intermediate Myalgias Verified 11/05/23 15:40 lovastatin [From Mevacor] AdvReac Intermediate Myalgias Verified 11/05/23 15:40 lisinopril AdvReac Mild Cough Verified 11/05/23 15:40 Family History Father CAD (coronary artery disease) Diabetes Cancer prostate Myocardial infarction Sister CVA (cerebral vascular accident) Mother Emphysema, unspecified COPD (chronic obstructive pulmonary disease) Right heart failure Surgical History History of cardiac catheterization History of cystoscopy History of hernia surgery History of removal of neck cyst Hx of appendectomy Hx of surgical procedure Hx of tonsillectomy Social History household members: spouse Smoking Status: Former smoker how long ago did patient quit smokin years ago alcohol intake: current details: rare substance use type: does not use caffeine: Yes Type: coffee Number of servings: 1 ROS ROS ED ROS Narrative Constitutional: No fever, no chills. Had broken out in a cold sweat previously. HEENT: No sore throat. No neck pain. No loss of vision. No rhinorrhea. Cardiovascular: Positive chest pressure/chest pain. No palpitations. No pedal edema. Respiratory: No cough, questionable shortness of breath. Abdominal: No abdominal pain. Positive nausea. No vomiting. Genitourinary: No dysuria. No hematuria. Musculoskeletal: No myalgias. No arthralgias. Neurologic: No headaches. No dizziness. No lightheadedness. Skin: No rash. No change in color. Psychiatric: No depression. No anxiety. EXAM Physical Exam Narrative Exam Narrative: Afebrile. Vital signs noted. Mild cachexia. HEENT: Normocephalic. Atraumatic. PERRL, EOMI. Neck soft and supple. No point tenderness or step off. Cardiovascular: Bradycardia.. No murmurs, rubs, or gallops appreciated. Respiratory: No tachypnea. Lungs clear to auscultation bilaterally. Gastrointestinal: Abdomen soft, nontender, with normoactive bowel sounds. No rebound or guarding. Neurological: Awake. Alert. Nonfocal, nonlateralizing. Skin: No rash. Normal color. No pallor. Musculoskeletal: No pedal edema. Full range of motion extremities. Const Vital Signs: 11/05/23 15:40 11/05/23 16:13 11/05/23 16:13 Temperature 97.2 F L Temperature Source Temporal Pulse Rate 53 L Pulse Rate [5] Respiratory Rate 18 Respiratory Rate [5] Respiratory Effort Normal Respiratory Pattern Blood Pressure 125/63 H Blood Pressure [5] Blood Pressure Mean 83 Pulse Ox 99 Oxygen Delivery Method Room Air Room Air Fraction of Inspired Oxygen (FIO2) 11/05/23 16:37 11/05/23 17:00 11/05/23 18:00 Temperature Temperature Source Pulse Rate 67 58 L 55 L Pulse Rate [5] Respiratory Rate 27 H 17 13 Respiratory Rate [5] Respiratory Effort Respiratory Pattern Blood Pressure 122/59 H 120/60 144/67 H Blood Pressure [5] Blood Pressure Mean 80 80 92 Pulse Ox 99 99 99 Oxygen Delivery Method Room Air Room Air Room Air Fraction of Inspired Oxygen (FIO2) 11/05/23 19:19 11/05/23 19:50 11/05/23 20:00 Temperature Temperature Source Pulse Rate 79 78 Pulse Rate [5] 87 Respiratory Rate 11 L 18 Respiratory Rate [5] 32 H Respiratory Effort Respiratory Pattern Blood Pressure 132/77 H 120/70 Blood Pressure [5] 121/67 H Blood Pressure Mean 95 86 Pulse Ox 100 Oxygen Delivery Method Mechanical Ventilator Fraction of Inspired Oxygen (FIO2) 11/05/23 19:31 11/05/23 20:00 11/05/23 20:17 Temperature Temperature Source Pulse Rate 78 Pulse Rate [5] Respiratory Rate 12 Respiratory Rate [5] Respiratory Effort Mechanically Ventilated Respiratory Pattern Blood Pressure 120/70 Blood Pressure [5] Blood Pressure Mean 86 Pulse Ox 100 Oxygen Delivery Method Mechanical Ventilator Fraction of Inspired Oxygen (FIO2) 30 11/05/23 19:40 11/05/23 20:24 11/05/23 20:50 Temperature 98 F Temperature Source Pulse Rate 80 73 76 Pulse Rate [5] Respiratory Rate 18 14 11 L Respiratory Rate [5] Respiratory Effort Respiratory Pattern Normal Blood Pressure 126/68 H 112/65 Blood Pressure [5] Blood Pressure Mean 87 80 Pulse Ox 98 100 Oxygen Delivery Method Mechanical Ventilator Fraction of Inspired Oxygen (FIO2) 50 11/05/23 20:30 Temperature Temperature Source Pulse Rate 73 Pulse Rate [5] Respiratory Rate Respiratory Rate [5] Respiratory Effort Respiratory Pattern Normal Blood Pressure Blood Pressure [5] Blood Pressure Mean Pulse Ox 100 Oxygen Delivery Method Fraction of Inspired Oxygen (FIO2) 30 Heart Score History: Slightly/Non-Suspicious ECG: Normal Age: >/= 65 years Risk Factors: >/= 3 Risk Factors or History of CAD Score: 4 MDM MDM MDM Narrative Medical decision making narrative: Patient states he has a 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 In the differential diagnosis is acute coronary syndrome/STEMI versus non-STEMI. I have low suspicion for aortic dissection because is not having back pain, no tearing sensation, and his blood pressure is appropriate. Additionally, I have low suspicion for pulmonary embolism because his pulse ox is 99% on room air and he is not tachycardic. Chest pain workup was pursued. I reviewed his prior records. Initial EKG obtained and interpreted by myself independently shows sinus bradycardia at 49 bpm without ectopy, no acute ST changes. No STEMI. I reviewed his laboratory work and he is neutropenic at 2.6 consistent with his lymphoma and he has been pancytopenic in the past as well. Hemoglobin stable at 11.6, platelet count low at 111. His electrolyte panel shows chloride slightly elevated at 108 with a normal BUN of 10 and creatinine 0.80. Glucose is appropriate elevated at 97. Initial high-sensitivity troponin was 42. While he was awaiting his second 2-hour troponin, he began having chest pressure again. EKG was obtained again to look for any change. It was interpreted by myself independently as sinus bradycardia at 54 bpm without ectopy or acute ST changes, no significant change from previous, no STEMI. Chest x-ray in 1 view interpreted by myself independently shows no evidence of radiographic abnormality, no pneumonia, no pneumothorax. I reviewed the radiology report which confirms my independent interpretation. As the patient began having chest pain again, my plan was to admit him at least for observation because I feel that he would require stress testing. However, when the patient's was talking to him, he became unresponsive, and stopped breathing. KATHY DALY was called. Upon arrival to the room, there were no agonal respirations and patient was pulseless. Chest compressions were started. During the pulse check, on the monitor he appeared to be in ventricular tachycardia, pulseless. Patient was defibrillated at 250 J and CPR continued. He received a bolus of amiodarone 300 mg intravenously. He appeared to have a normal sinus rhythm on the monitor, however he returned into ventricular tachycardia without a pulse. CPR was instituted again, and this time patient defibrillated at 300 J. He became more responsive and was able to breathe on his own and appeared to be in normal sinus rhythm again. Second EKG will be obtained. Patient was given sedation with etomidate 15 mg intravenously and he was intubated by myself using a MAC 3 blade with direct laryngoscopy. 7.5 mm ET tube was inserted to the level of 25 at the lips. Lung sounds were auscultated bilaterally and no epigastric noise on Dr. Lopez's auscultation. There was good color change on easy cap. I discussed the patient with Dr. Robert on for cardiology. It was not felt that the patient needed emergent catheterization given his ventricular tachycardia arrest. However, his repeat EKG was interpreted by myself independently as normal sinus rhythm, but there is elevation inferiorly with ST depression in aVL. He will be started on an amiodarone drip, along with heparin and magnesium level added. I rediscussed the patient with Dr. Robert, and it was decided that he should go to the catheterization lab tonight. Patient will be given Brilinta and aspirin through the OG. I informed his and family that he would be catheterized this evening then admitted to the ICU. I discussed patient with the hospitalist for admission after catheterization. I reviewed his magnesium level and is normal at 2.1. Patient will be admitted to the ICU after discussion with the hospitalist. He is in guarded condition. Critical care time 34 minutes. History & Record Review Discussion w/independent historian: Patient and Family Additional record(s) reviewed:: Prior outpatient record and Prior labs Lab Data Attestation: I reviewed the patient's lab results. Labs: Laboratory Results - last 24 hr 11/05/23 11/05/23 11/05/23 15:53 18:13 19:45 WBC 2.6 L RBC 3.56 L Hgb 11.6 L Hct 35.7 L MCV 100.3 H MCH 32.6 H MCHC 32.5 RDW Std Deviation 54.4 H RDW Coeff of [place] 14.8 H Plt Count 111 L MPV 10.2 Immature Gran % (Auto) 0.800 Neut % (Auto) 35.8 L Lymph % (Auto) 39.2 [place] % (Auto) 21.9 H Eos % (Auto) 1.9 Baso % (Auto) 0.4 Absolute Neuts (auto) 0.9 L Absolute Lymphs (auto) 1.02 Nucleated RBC % 0 Differential Comment SCANNED PT 15.5 H INR 1.2 APTT 39.1 H Sodium 139 Potassium 3.7 Chloride 108 H Carbon Dioxide 29.0 Anion Gap 2 L BUN 10 Creatinine 0.80 Estim Creat Clear Calc 65.35 Est GFR (MDRD) Af Amer 119 Est GFR (MDRD) Non-Af 99 BUN/Creatinine Ratio 12.5 Glucose 97 Calcium 9.6 Magnesium 2.1 Troponin I High Sens 42 62 ABG Data ABG results: ABG 11/05/23 20:07 Specimen Type ART Sample Site R Radial pH 7.38 Bicarbonate Actual 21.2 L Total CO2 22 Base Excess -4 L O2 Saturation 100 H O2 % 50.0 ABG pCO2 35.8 ABG pO2 195 H Jesu Test Positive Respiration Rate 12 O2 Delivery Device ET Tube Vent Mode AC Tidal Volume 450.0 POC PEEP 5 Radiography Chest X-Ray - ED: Read by ED Physician Diagnostic Testing: Clinical Impression(s) from Imaging Studies Chest X-Ray 11/05/23 16:00 IMPRESSION: No radiographic evidence of acute cardiopulmonary disease. Electronically Signed: Jayro Manzanares DO at 16:55 EDT , Chest X-Ray 11/05/23 19:50 IMPRESSION: No radiographic evidence of acute cardiopulmonary disease. Electronically Signed: Jayro Manzanares DO at 20:35 EDT , KUB X-Ray 11/05/23 19:50 IMPRESSION: Nasogastric tube in the stomach. Electronically Signed: Jayro Manzanares DO at 20:36 EDT , Management Discussion w/another healthcare provider: Hospitalist and Research Tech Critical Care Time Critical Care Time: Yes Critical care time (excluding procedures): 30-74 minutes (34), Including time spent:, Discussing w/Patient &/or Family/Manager Drug, Discussing w/Consultants, Arranging Admission or Transfer and Performing Direct Patient Care at Bedside Discharge Plan Dx/Rx/DC Orders Clinical Impression: Pulseless ventricular tachycardia, Cardiopulmonary arrest with successful resuscitation, Chest pain Disposition Disposition: Acute Care Hospital [facility] Discharge Date/Time: 11/05/23 21:25
[2023-11-05] MEDS: Aspirin 81 MG TAB.CHEW 324 MG PO (16:11)
[2023-11-05 16:21] LABS: Absolute Lymphocyte Count 1.02 X10^3/uL (0.83-4.51); Absolute Neutrophil Count 0.9 X10^3/uL (2.0-7.7); Basophil# 0.01 X10^3/uL; Basophil% 0.4 % (0-1); Eosinophil# 0.05 X10^3/uL; Eosinophils% 1.9 % (0-5); Hematocrit 35.7 % (40-54); Hemoglobin 11.6 g/dL (13.0-16.5); Lymphocyte # 1.02 X10^3/ul (0.83-4.51); Lymphocyte % 39.2 % (19-41); Mean Corp Hgb Conc 32.5 g/dL (32-36); Mean Corpuscular Hgb 32.6 pg (27.0-32.0); Mean Corpuscular Volume 100.3 fL (80-94); Mean Platelet Vol. 10.2 fl (6.2-12.0); Monocyte# 0.57 X10^3/uL; Monocyte% 21.9 % (0-10); NRBC Flagged by Analyzer 0 % (0-5); Neutrophil # 0.93 X10^3/uL (2.7-7.7); Neutrophil % 35.8 % (47-70); POSITIVE DIFFERENTIAL YES; Platelet Count 111 K/mm3 (150-450); RBC Distribution Width CV 14.8 % (11.6-14.6); RBC Distribution Width SD 54.4 fl (35.1-43.9); Red Blood Count 3.56 M/mm3 (4.6-6.2); White Blood Count 2.6 K/mm3 (4.4-11.0)
[2023-11-05 16:27] LABS: Differential Indicated SCAN CRITERIA MET
[2023-11-05 16:40] LABS: Anion Gap 2 (5-15); BUN 10 mg/dL (7-18); BUN/Creat Ratio 12.5 RATIO (10-20); Calcium,Total 9.6 mg/dL (8.5-10.1); Chloride 108 mmol/L (98-107); EST Glomerular Filtration Rate 99 mL/min (>60); Est Glom Filt Rate - Afr Amer 119 mL/min (>60); Estimated Creatinine Clearance 65.35 ml/min; Glucose 97 mg/dL (74-106); Potassium 3.7 mmol/L (3.5-5.1); Sodium Level 139 mmol/L (136-145); Troponin-I HS (w/2H Reflex) 42 pg/mL (3.0-78.0)
[2023-11-05 16:58] LABS: Differential Comment SCANNED
[2023-11-05 18:11] LABS: Reflex Troponin-HS? (from REC) Y
[2023-11-05 19:03] LABS: Troponin-I HS 62 pg/mL (3.0-78.0)
--- NOTE | 2023-11-05 19:32 | EKG12_ITS ---
Test Reason : CHEST PAIN Blood Pressure : / mmHG Vent. Rate : 054 BPM Atrial Rate : 054 BPM P-R Int : 142 ms QRS Dur : 090 ms QT Int : 418 ms P-R-T Axes : 054 068 073 degrees QTc Int : 396 ms Sinus bradycardia Nonspecific ST abnormality Abnormal ECG Confirmed by CLIFF ANDREA, KRISTEN ([id number]), clinical editor RUPERTO POON ([id number]) on 11/11/2023 1:40:41 PM Referred By: KIKE Confirmed By:SAMPSON CORONADO MD
[2023-11-05] MEDS: Etomidate 20 MG/10 ML Vial 15 MG IV (19:37)
[2023-11-05] MEDS: fentaNYL 100 MCG/2 ML Ampul 50 MCG IV (19:44)
--- NOTE | 2023-11-05 19:45 | EKG12_ITS ---
Test Reason : Blood Pressure : / mmHG Vent. Rate : 082 BPM Atrial Rate : 082 BPM P-R Int : 156 ms QRS Dur : 090 ms QT Int : 382 ms P-R-T Axes : 056 081 088 degrees QTc Int : 446 ms Critical Test Result: STEMI Sinus rhythm with occasional Premature ventricular complexes ST elevation consider inferior injury or acute infarct ACUTE AL / STEMI Consider right ventricular involvement in acute inferior infarct Abnormal ECG When compared with ECG of 05-NOV-2023 16:05, MANUAL COMPARISON REQUIRED, DATA IS UNCONFIRMED Confirmed by JOLEEN ANDREA, JONN ([id number]), film editor RUPERTO POON ([id number]) on 11/12/2023 6:03:02 AM Referred By: ANAM Confirmed By:JONN GOODRICH MD
--- NOTE | 2023-11-05 19:50 | RAD_ITS ---
INDICATION: intubation EXAMINATION/TECHNIQUE: X-RAY - XR Chest 1 View COMPARISON: November 05, 2023 FINDINGS: LINES/DEVICES: Endotracheal tube with tip 17 mm above the marylu. Nasogastric tube with tip in the stomach. LUNGS: No consolidation, edema or effusion. No pneumothorax. MEDIASTINUM AND CARDIOVASCULAR STRUCTURES: Cardiac silhouette not enlarged. Central airways and mediastinal contour are unremarkable. BONES AND SOFT TISSUES: Degenerative vertebral changes. RAD/Chest 1 View (Portable) IMPRESSION: No radiographic evidence of acute cardiopulmonary disease. Electronically Signed: Jayro Manzanares DO at 20:35 EDT Reading Location ID and State: [facility] / [place] Tel [phone], Service support ,
--- NOTE | 2023-11-05 19:50 | RAD_ITS ---
STUDY: X-RAY - ABDOMEN/PELVIS REASON FOR EXAM: Male, 82 years old. NG insertion TECHNIQUE: Frontal views COMPARISON: None. FINDINGS: Normal visualized lung bases. There is an unremarkable bowel gas pattern. There is no demonstrated free abdominal air. Nasogastric tube in the stomach. Normal soft tissue structures. Degenerative vertebral changes. RAD/Abdomen Single View (Portable) IMPRESSION: Nasogastric tube in the stomach. Electronically Signed: Jayro Manzanares DO at 20:36 EDT Reading Location ID and State: [facility] / [place] Tel [phone], Service support ,
[2023-11-05] MEDS: fentaNYL drip 100 ML 5 MCG CONT INF (19:55)
[2023-11-05] MEDS: Amiodarone 360 MG in Dextrose 5% Viaflo Bag 192.8 ML 33.3 MG CONT INF (20:00)
[2023-11-05 20:07] LABS: Magnesium 2.1 mg/dL (1.6-2.6)
[2023-11-05] MEDS: HEPARIN/D5w 25,000 UNITS 25,000 UNITS/250 ML IV.SOLN. 8 UNITS CONT INF (20:08)
[2023-11-05 20:09] LABS: International Normalized Ratio 1.2; Prothrombin Time (Protime)PT. 15.5 SECONDS (11.7-14.9)
[2023-11-05 20:10] LABS: Partial Thromboplast Time 39.1 Seconds (24.1-36.2)
[2023-11-05] MEDS: Heparin Injection (Vial) 5,000 UNIT/ML VIAL 4000 UNIT IV (20:11)
[2023-11-05 20:12] LABS: Allen Test Positive; Base Excess -4 mmol/L (-2 to +2); Bicarbonate 21.2 mmol/L (22-26); Blood Gas Specimen Type ART; Mode AC; O2 Delivery Device ET Tube; PEEP 5; PO2 195 mmHG (75-100); RR 12; SITE R Radial; SO2 100 % (95-99); Total Carbon Dioxide 22 mmol/L; pCO2 35.8 mmHg (35-45); pH 7.38 (7.35-7.45)
--- NOTE | 2023-11-05 20:15 | PCM.HP.STD ---
[facility] - General General Date of Admission: 11/05/23 Date of Service: 11/05/23 Chief Complaint: Chest Pain. HPI Narrative YAIR JOLLY, is a 82 M with a past medical history of essential hypertension, hyperlipidemia, remote history of tobacco abuse (quit 40 years ago), history of AAA (~3.3 cm followed at [facility] in [place], [place]), coronary artery disease, history of carotid stenosis, history of CVA, obstructive sleep apnea, history of lymphoma with pancytopenia, actinic keratosis, history of renal calculi, history of bilateral inguinal hernia; without obstruction, depression with anxiety and osteoarthritis; with chronic back pain who presents to [facility] ER complaining of chest pain. Mr. Jolly has just underwent CODE BLUE in the ER and is intubated at this time so information was gathered from chart, medical staff and computer. According to the records patient reported his chest pain that began 2 days ago while he was walking with his he developed chest pain that was pressure-like, substernal and apparently nonradiating with diaphoresis which improved after rest. He also admitted to nausea but no vomiting with mild shortness of breath and was seen earlier in the day at Dr. Alvarez office general surgery for lancing sebaceous cyst that was infected on his abdomen. Then today his chest pain recurred culminating in his CODE BLUE with patient having evidence of inferior ST elevation OK on his EKG with receptionist airline lounge on-call coming in for emergent left heart cath at this time. The ER physician called me to arrange for ICU admission for this patient in case he is deemed appropriate to stay at this hospital for further care for stay that is expected to be greater than 48 hours. [facility] Medical History (Updated 11/06/23 @ 00:[address] Darin Hendrickson, ) Abdominal aortic aneurysm (AAA) Actinic keratosis Adverse drug reaction Alcohol use Allergic rhinitis Anemia Anxiety Atherosclerotic heart disease of [place] coronary artery without angina pectoris Atherosclerotic heart disease of [place] coronary artery without angina pectoris Back pain Benign hematuria Bilateral inguinal hernia without obstruction or gangrene CAD (coronary artery disease) Cancer Cardiology follow-up encounter Carotid stenosis Chest pain Coronary artery disease Coronary atherosclerosis of [place] coronary vessel Cyst of left kidney Cyst of skin Depression Diverticulosis Easy bruising Essential hypertension Excessive bleeding Family history of CVA Former smoker Gallstones GERD (gastroesophageal reflux disease) Hay fever High cholesterol History of diverticulitis History of echocardiogram History of left heart catheterization (LHC) (~10/24/99) History of stress test Hoarseness Hypercholesterolemia Hyperlipidemia Hypertension Iron deficiency Kidney stones Limb weakness Long-term use of high-risk medication Lymphoma Macrocytosis Memory impairment Mitral valve disorder Mixed hyperlipidemia ASHLEY (obstructive sleep apnea) Other seborrheic keratosis Pancytopenia Pancytopenia Premature ventricular contraction Prostate disease Pure hypercholesterolemia Shortness of breath on exertion Sleep apnea Thrombocytopenia Vitamin D deficiency Wears dentures Wears glasses Wears partial dentures Yeast infection of the skin Home Medications aspirin 81 mg tablet,delayed release 81 mg PO DAILY [facility] 04/28/13 [History Last Taken 09/24/23] losartan 25 mg tablet 25 mg PO DAILY BLOOD PRESSURE #90 tabs 03/22/23 [Rx Last Taken 07/31/23] atenolol 25 mg tablet 12.5 mg PO DAILY BLOOD PRESSURE 07/31/23 [History Last Taken 09/26/23] tamsulosin 0.4 mg capsule 0.4 mg PO DAILY@1730 30 days #30 caps 08/01/23 [Rx Last Taken Unknown] nitroglycerin 0.4 mg sublingual tablet 0.4 mg sublingual Q5-15M PRN CHEST PAIN #30 tabs 09/12/23 [Rx Last Taken Unknown] isosorbide mononitrate 30 mg tablet,extended release 24 hr 30 mg PO DAILY CHEST PAIN #90 tabs 10/24/23 [Rx Last Taken Unknown] simvastatin 20 mg tablet 20 mg PO QHS CHOLESTEROL #90 tabs 10/24/23 [Rx Last Taken Unknown] Allergy/AdvReac Type Severity Reaction Status Date / Time amoxicillin [From Augmentin] Allergy Intermediate Rash Verified 11/05/23 15:40 clavulanic acid Allergy Intermediate Rash Verified 11/05/23 15:40 [From Augmentin] ciprofloxacin [From Cipro] Allergy Hives Verified 11/05/23 15:40 atorvastatin [From Lipitor] AdvReac Intermediate Myalgias Verified 11/05/23 15:40 lovastatin [From Mevacor] AdvReac Intermediate Myalgias Verified 11/05/23 15:40 lisinopril AdvReac Mild Cough Verified 11/05/23 15:40 Family History Father CAD (coronary artery disease) Diabetes Cancer prostate Myocardial infarction Sister CVA (cerebral vascular accident) Mother Emphysema, unspecified COPD (chronic obstructive pulmonary disease) Right heart failure Surgical History History of cardiac catheterization History of cystoscopy History of hernia surgery History of removal of neck cyst Hx of appendectomy Hx of surgical procedure Hx of tonsillectomy Social History household members: spouse Smoking Status: Former smoker how long ago did patient quit smokin years ago alcohol intake: current details: rare substance use type: does not use caffeine: Yes Type: coffee Number of servings: 1 ROS ROS Narrative Full review of systems could not be completed at this time as patient is intubated. Vital Signs Vital Signs Vital Signs: 11/05/23 15:40 11/05/23 16:13 11/05/23 16:13 Temperature 97.2 F L Temperature Source Temporal Pulse Rate 53 L Pulse Rate [5] Respiratory Rate 18 Respiratory Rate [5] Respiratory Effort Normal Respiratory Pattern Blood Pressure 125/63 H Blood Pressure [5] Blood Pressure Mean 83 Pulse Ox 99 Oxygen Delivery Method Room Air Room Air Fraction of Inspired Oxygen (FIO2) 11/05/23 16:37 11/05/23 17:00 11/05/23 18:00 Temperature Temperature Source Pulse Rate 67 58 L 55 L Pulse Rate [5] Respiratory Rate 27 H 17 13 Respiratory Rate [5] Respiratory Effort Respiratory Pattern Blood Pressure 122/59 H 120/60 144/67 H Blood Pressure [5] Blood Pressure Mean 80 80 92 Pulse Ox 99 99 99 Oxygen Delivery Method Room Air Room Air Room Air Fraction of Inspired Oxygen (FIO2) 11/05/23 19:19 11/05/23 19:50 11/05/23 20:00 Temperature Temperature Source Pulse Rate 79 78 Pulse Rate [5] 87 Respiratory Rate 11 L 18 Respiratory Rate [5] 32 H Respiratory Effort Respiratory Pattern Blood Pressure 132/77 H 120/70 Blood Pressure [5] 121/67 H Blood Pressure Mean 95 86 Pulse Ox 100 Oxygen Delivery Method Mechanical Ventilator Fraction of Inspired Oxygen (FIO2) 11/05/23 19:40 Temperature Temperature Source Pulse Rate 80 Pulse Rate [5] Respiratory Rate 18 Respiratory Rate [5] Respiratory Effort Respiratory Pattern Normal Blood Pressure Blood Pressure [5] Blood Pressure Mean Pulse Ox 98 Oxygen Delivery Method Fraction of Inspired Oxygen (FIO2) 50 Weight Weight: 140 lb 10.479 oz Body Mass Index (BMI) 21.4 Physical Exam Const average body habitus Constitutional Narrative: Patient is intubated and sedated on ventilator. HEENT normocephalic, head/scalp atraumatic and hearing grossly normal bilaterally Eyes PERRL Neck no lymphadenopathy and supple Resp normal respiratory effort, no retractions, no use of accessory muscles and clear to auscultation bilaterally Cardio regular rate and regular rhythm GI normal to inspection, nondistended, normoactive bowel sounds, soft to palpation, non-tender and non-distended Extremity normal to inspection Skin Skin Narrative: Patient has no evidence of rash. Neuro Neuro Narrative: Patient is intubated and sedated on ventilator. Psych Psych Narrative: Patient is intubated and sedated on ventilator. Results Medical Records Data Attestation: I reviewed the patient's medical records Lab / Micro Data Attestation: I reviewed the patient's lab results. 11/05/23 15:53 11/05/23 15:53 Labs: Laboratory Results - last 24 hr 11/05/23 15:53: WBC 2.6 L, RBC 3.56 L, Hgb 11.6 L, Hct 35.7 L, MCV 100.3 H, MCH 32.6 H, MCHC 32.5, RDW Std Deviation 54.4 H, RDW Coeff of [place] 14.8 H, Plt Count 111 L, MPV 10.2, Immature Gran % (Auto) 0.800, Neut % (Auto) 35.8 L, Lymph % (Auto) 39.2, [place] % (Auto) 21.9 H, Eos % (Auto) 1.9, Baso % (Auto) 0.4, Absolute Neuts (auto) 0.9 L, Absolute Lymphs (auto) 1.02, Nucleated RBC % 0, Differential Comment SCANNED, Sodium 139, Potassium 3.7, Chloride 108 H, Carbon Dioxide 29.0, Anion Gap 2 L, BUN 10, Creatinine 0.80, Estim Creat Clear Calc 65.35, Est GFR (MDRD) Af Amer 119, Est GFR (MDRD) Non-Af 99, BUN/Creatinine Ratio 12.5, Glucose 97, Calcium 9.6, Troponin I High Sens 42 11/05/23 18:13: Troponin I High Sens 62 04/23/24 19:45: PT 15.5 H, INR 1.2, APTT 39.1 H, Magnesium 2.1 ABG Data ABG results: ABG 11/05/23 20:07 Specimen Type ART Sample Site R Radial pH 7.38 Bicarbonate Actual 21.2 L Total CO2 22 Base Excess -4 L O2 Saturation 100 H O2 % 50.0 ABG pCO2 35.8 ABG pO2 195 H Jesu Test Positive Respiration Rate 12 O2 Delivery Device ET Tube Vent Mode AC Tidal Volume 450.0 POC PEEP 5 Imaging Radiology Impression Chest X-Ray 11/05/23 16:00 IMPRESSION: No radiographic evidence of acute cardiopulmonary disease. Electronically Signed: Jayro Manzanares DO at 16:55 EDT Reading Location ID and State: [facility] / [place] Tel [phone], Service support , [facility] Imaging Services [address] [place] [id number] Abdomen Single View (Portable) MR#: [id number] Acct: [id number] Name: YAIR JOLLY Rep #: [id number] : 1940 M 82 From: Jayro Manzanares DO PCP: Dr. Radha Olivas DO Status: REG ER Study: Abdomen Single View (Portable) Date of Exam: 11/05/23 Exam# [id number] Ordering Dr: Alexis Lopez MD STUDY: X-RAY - ABDOMEN/PELVIS REASON FOR EXAM: Male, 82 years old. NG insertion TECHNIQUE: Frontal views COMPARISON: None. FINDINGS: Normal visualized lung bases. There is an unremarkable bowel gas pattern. There is no demonstrated free abdominal air. Nasogastric tube in the stomach. Normal soft tissue structures. Degenerative vertebral changes. RAD/Abdomen Single View (Portable) IMPRESSION: Nasogastric tube in the stomach. Electronically Signed: Jayro Manzanares DO at 20:36 EDT Reading Location ID and State: [facility] / [place] Tel [phone], Service support , CC: Dr. Radha Olivas DO; Dr. Alexis Lopez MD ~ Director Of Primary: Signed Assessment & Plan Assessment/Plan (1) Chest pain: QUALIFIERS: Chest pain type: chest pain due to myocardial ischemia Ischemic chest pain type: unstable angina pectoris Qualified Code(s): I20.0 - Unstable angina (2) Cardiopulmonary arrest with successful resuscitation: (3) Pulseless ventricular tachycardia: (4) Lymphoma: QUALIFIERS: Lymphoma type: unspecified type Lymphoma site: unspecified region Qualified Code(s): C85.90 - Non-Hodgkin lymphoma, unspecified, unspecified site (5) Leukopenia: QUALIFIERS: Leukopenia type: unspecified Qualified Code(s): D72.819 - Decreased white blood cell count, unspecified (6) Thrombocytopenia: PLAN: Plan 1. Chest pain with subsequent CODE BLUE in ER an EKG showing evidence of inferior ST elevation OK in the setting of previously diagnosed coronary artery disease - Proceed with emergent left heart cath to be done by cardiology. If patient is deemed appropriate to stay at this hospital he will be admitted to the ICU and continued on IV heparin, aspirin, Plavix and statin. Serialize troponin. Check echocardiogram to evaluate LVEF. 2. History of lymphoma with pancytopenia complicating #1 - CBC on admission revealed leukopenia of 2.6 with a platelet count of 111 consistent with moderate thrombocytopenia. His hemoglobin was stable at 11.6 g/dL. We will monitor daily CBC to ensure continued stability. 3. Essential hypertension - Give IV hydralazine as needed for systolic blood pressure greater than 160 mmHg. 4. Hyperlipidemia - Resume statin and check lipid profile this admission in light of #1. 5. Remote history of tobacco abuse (quit 40 years ago) - Noted. 6. History of AAA (~3.3 cm followed at [facility] in [place], [place]) - Stable. 7. History of carotid stenosis and CVA - Noted. Check carotid Doppler to evaluate severity of stenosis. 8. Obstructive sleep apnea - Stable. Patient will need CPAP once he is weaned off ventilator. 9. Actinic keratosis - Stable. 10. History of renal calculi - Noted. 11. History of bilateral inguinal hernia; without obstruction - Noted. 12. Depression with anxiety - Continue home regimen patient is able to tolerate oral intake. 13. Osteoarthritis; with chronic back pain - Stable. We will give Tylenol as needed. 14. DVT prophylaxis - Patient on full dose heparin for #1. Total time: Approximately 55 minutes. Charges/Coding Visit Charges Inpatient E&M: 04210 Init Hosp L2
--- NOTE | 2023-11-05 21:29 | CON.PCM.CA_ITS ---
Assessment & Plan Assessment/Plan (1) Chest pain: QUALIFIERS: Chest pain type: chest pain due to myocardial ischemia Ischemic chest pain type: unstable angina pectoris Qualified Code(s): I20.0 - Unstable angina PLAN: Will proceed with coronary angiography. Rest of the management will be based on angiographic findings. (2) Cardiopulmonary arrest with successful resuscitation: (3) Pulseless ventricular tachycardia: HPI Consult Data Date of Consult: 11/05/23 HPI Narrative Reason for Consultation: Chest pain, V. tach HPI Narrative: YAIR MCCORD, is a 82 M who presents with chest pain. In the emergency room patient went into V. tach cardiac arrest and was resuscitated. He is currently intubated but responsive to commands. Initial EKG was unremarkable but a follow-up EKG showed subtle ST changes that did not fit criteria for a STEMI but dynamic changes compared to initial EKGs. The plan was made to bring the patient to the Oncology Account Specialist for emergent cardiac catheterization. Patient is currently stable and is getting prepped for cardiac cath. [facility] Medical History Abdominal aortic aneurysm (AAA) Actinic keratosis Adverse drug reaction Alcohol use Allergic rhinitis Anemia Anxiety Atherosclerotic heart disease of [place] coronary artery without angina pectoris Atherosclerotic heart disease of [place] coronary artery without angina pectoris Back pain Benign hematuria Bilateral inguinal hernia without obstruction or gangrene CAD (coronary artery disease) Cancer Cardiology follow-up encounter Carotid stenosis Chest pain Coronary artery disease Coronary atherosclerosis of [place] coronary vessel Cyst of left kidney Cyst of skin Depression Diverticulosis Easy bruising Essential hypertension Excessive bleeding Family history of CVA Former smoker Gallstones GERD (gastroesophageal reflux disease) Hay fever High cholesterol History of diverticulitis History of echocardiogram History of left heart catheterization (LHC) (~10/24/99) History of stress test Hoarseness Hypercholesterolemia Hyperlipidemia Hypertension Iron deficiency Kidney stones Limb weakness Long-term use of high-risk medication Lymphoma Macrocytosis Memory impairment Mitral valve disorder Mixed hyperlipidemia ASHLEY (obstructive sleep apnea) Other seborrheic keratosis Pancytopenia Pancytopenia Premature ventricular contraction Prostate disease Pure hypercholesterolemia Shortness of breath on exertion Sleep apnea Thrombocytopenia Vitamin D deficiency Wears dentures Wears glasses Wears partial dentures Yeast infection of the skin Home Medications aspirin 81 mg tablet,delayed release 81 mg PO DAILY [facility] 04/28/13 [History Last Taken 09/24/23] losartan 25 mg tablet 25 mg PO DAILY BLOOD PRESSURE #90 tabs 03/22/23 [Rx Last Taken 07/31/23] atenolol 25 mg tablet 12.5 mg PO DAILY BLOOD PRESSURE 07/31/23 [History Last Taken 09/26/23] tamsulosin 0.4 mg capsule 0.4 mg PO DAILY@1730 30 days #30 caps 08/01/23 [Rx Last Taken Unknown] nitroglycerin 0.4 mg sublingual tablet 0.4 mg sublingual Q5-15M PRN CHEST PAIN #30 tabs 09/12/23 [Rx Last Taken Unknown] isosorbide mononitrate 30 mg tablet,extended release 24 hr 30 mg PO DAILY CHEST PAIN #90 tabs 10/24/23 [Rx Last Taken Unknown] simvastatin 20 mg tablet 20 mg PO QHS CHOLESTEROL #90 tabs 10/24/23 [Rx Last Taken Unknown] Allergy/AdvReac Type Severity Reaction Status Date / Time amoxicillin [From Augmentin] Allergy Intermediate Rash Verified 11/05/23 15:40 clavulanic acid Allergy Intermediate Rash Verified 11/05/23 15:40 [From Augmentin] ciprofloxacin [From Cipro] Allergy Hives Verified 11/05/23 15:40 atorvastatin [From Lipitor] AdvReac Intermediate Myalgias Verified 11/05/23 15:40 lovastatin [From Mevacor] AdvReac Intermediate Myalgias Verified 11/05/23 15:40 lisinopril AdvReac Mild Cough Verified 11/05/23 15:40 Family History Father CAD (coronary artery disease) Diabetes Cancer prostate Myocardial infarction Sister CVA (cerebral vascular accident) Mother Emphysema, unspecified COPD (chronic obstructive pulmonary disease) Right heart failure Surgical History History of cardiac catheterization History of cystoscopy History of hernia surgery History of removal of neck cyst Hx of appendectomy Hx of surgical procedure Hx of tonsillectomy Social History household members: spouse Smoking Status: Former smoker how long ago did patient quit smokin years ago alcohol intake: current details: rare substance use type: does not use caffeine: Yes Type: coffee Number of servings: 1 Physical Exam Const Constitutional Narrative: Intubated HEENT normocephalic Eyes no scleral icterus Resp normal respiratory effort Cardio regular rate Risk Stratification Risk Stratification Applicable: No Charges/Coding Visit Charges Inpatient E&M: 39094 Init Hosp L2 Objective Data Vital Signs: Vital Signs Temp Pulse Resp BP Pulse Ox O2 Del Method FiO2 98 F 71 11 L 114/66 100 Mechanical Ventilator 30 11/05/23 20:50 11/05/23 20:54 11/05/23 20:54 11/05/23 20:54 11/05/23 20:54 11/05/23 20:54 11/05/23 20:30 Oxygen Delivery Method Mechanical Ventilator Weight: 140 lb 10.479 oz Body Mass Index (BMI) 21.4 Intake & Output: Intake and Output for Last 24 Hours 11/03/23 11/04/23 11/05/23 23:59 23:59 23:59 Intake Total 4.58 / 4.58 Balance 4.58 / 4.58 Lab / Micro Data 11/05/23 15:53 11/05/23 15:53 Labs: Laboratory Results - last 24 hr 11/05/23 15:53: WBC 2.6 L, RBC 3.56 L, Hgb 11.6 L, Hct 35.7 L, MCV 100.3 H, MCH 32.6 H, MCHC 32.5, RDW Std Deviation 54.4 H, RDW Coeff of [place] 14.8 H, Plt Count 111 L, MPV 10.2, Immature Gran % (Auto) 0.800, Neut % (Auto) 35.8 L, Lymph % (Auto) 39.2, [place] % (Auto) 21.9 H, Eos % (Auto) 1.9, Baso % (Auto) 0.4, Absolute Neuts (auto) 0.9 L, Absolute Lymphs (auto) 1.02, Nucleated RBC % 0, Differential Comment SCANNED, Sodium 139, Potassium 3.7, Chloride 108 H, Carbon Dioxide 29.0, Anion Gap 2 L, BUN 10, Creatinine 0.80, Estim Creat Clear Calc 65.35, Est GFR (MDRD) Af Amer 119, Est GFR (MDRD) Non-Af 99, BUN/Creatinine Ratio 12.5, Glucose 97, Calcium 9.6, Troponin I High Sens 42 11/05/23 18:13: Troponin I High Sens 62 11/05/23 19:45: PT 15.5 H, INR 1.2, APTT 39.1 H, Magnesium 2.1 ABG Data ABG results: ABG 11/05/23 20:07 Specimen Type ART Sample Site R Radial pH 7.38 Bicarbonate Actual 21.2 L Total CO2 22 Base Excess -4 L O2 Saturation 100 H O2 % 50.0 ABG pCO2 35.8 ABG pO2 195 H Jesu Test Positive Respiration Rate 12 O2 Delivery Device ET Tube Vent Mode AC Tidal Volume 450.0 POC PEEP 5 Cardiology Labs/Tests 11/05/23 15:53: WBC 2.6 L, RBC 3.56 L, Hgb 11.6 L, Hct 35.7 L, MCV 100.3 H, MCH 32.6 H, MCHC 32.5, Plt Count 111 L, MPV 10.2, Immature Gran % (Auto) 0.800, Neut % (Auto) 35.8 L, Lymph % (Auto) 39.2, [place] % (Auto) 21.9 H, Eos % (Auto) 1.9, Baso % (Auto) 0.4, Absolute Neuts (auto) 0.9 L, Nucleated RBC % 0, Sodium 139, Potassium 3.7, Chloride 108 H, Carbon Dioxide 29.0, Anion Gap 2 L, BUN 10, Creatinine 0.80, Est GFR (MDRD) Af Amer 119, Est GFR (MDRD) Non-Af 99, BUN/Creatinine Ratio 12.5, Glucose 97, Calcium 9.6 11/05/23 19:45: PT 15.5 H, INR 1.2, APTT 39.1 H, Magnesium 2.1 11/05/23 20:07: pH 7.38, Bicarbonate Actual 21.2 L, Base Excess -4 L, O2 Saturation 100 H, ABG pCO2 35.8, ABG pO2 195 H, Jesu Test Positive Rhythm: EKG: ECHO: Stress Test: Cardiac Cath: PCI: CT Surgery: Holter monitor: EPS: PPM: CXR: Chest CT Scan: Radiography Diagnostic Testing: Radiology Impression Chest X-Ray 11/05/23 16:00 IMPRESSION: No radiographic evidence of acute cardiopulmonary disease. Electronically Signed: Jayro Manzanares DO at 16:55 EDT , Chest X-Ray 11/05/23 19:50 IMPRESSION: No radiographic evidence of acute cardiopulmonary disease. Electronically Signed: Jayro Manzanares DO at 20:35 EDT , KUB X-Ray 11/05/23 19:50 IMPRESSION: Nasogastric tube in the stomach. Electronically Signed: Jayro Manzanares DO at 20:36 EDT ,
--- NOTE | 2023-11-05 22:45 | EKG12_ITS ---
Test Reason : post heart cath Blood Pressure : / mmHG Vent. Rate : 065 BPM Atrial Rate : 065 BPM P-R Int : 180 ms QRS Dur : 086 ms QT Int : 406 ms P-R-T Axes : 078 058 -12 degrees QTc Int : 422 ms Normal sinus rhythm Cannot rule out Inferior infarct , age undetermined Abnormal ECG When compared with ECG of 05-NOV-2023 19:48, MANUAL COMPARISON REQUIRED, DATA IS UNCONFIRMED Confirmed by CLIFF ANDREA, KRISTEN ([id number]), scientific editor BECKY WHITING ([id number]) on 11/11/2023 10:10:13 AM Referred By: Cliff Confirmed By:SAMPSON CORONADO MD
--- NOTE | 2023-11-05 23:20 | ED.RN ---
This RN was passing his room when the called out requesting help HELP, He's having a seizure. This RN walked into the room and saw the patient have agonal gasping and an unknown rhythm on the monitor. This RN hit the staff assist button and began getting the supplies together to bag the patient, but before I could bag him, Lisa RN came into the room to assist me and stated he lost a pulse. This RN hit the code blue button and began compressions. See code flowsheet for more info.
[2023-11-06] VITALS (53 sets, daily range): BP systolic 77–128; BP diastolic 48–72; PULSE 57–93; RESP 11–19; TEMP 36.6–37.1; O2SAT 96–100; BMI 21.1
[2023-11-06] MEDS: 0.9% Normal Saline (1000mL) 1,000 ML 75 ML IV ×2 (00:08→12:41)
[2023-11-06] MEDS: Amiodarone 360 MG in Dextrose 5% Viaflo Bag 192.8 ML 16.7 MG CONT INF ×2 (02:15→14:03)
[2023-11-06] MEDS: fentaNYL drip 100 ML 5 MCG CONT INF (04:45)
[2023-11-06] MEDS: 0.9% Saline Lock 10 ML Syringe IV (06:17)
[2023-11-06 06:41] LABS: Hematocrit 29.3 % (40-54); Hemoglobin 9.6 g/dL (13.0-16.5); Mean Corp Hgb Conc 32.8 g/dL (32-36); Mean Corpuscular Hgb 32.5 pg (27.0-32.0); Mean Corpuscular Volume 99.3 fL (80-94); Mean Platelet Vol. 10.5 fl (6.2-12.0); POSITIVE DIFFERENTIAL YES; Platelet Count 104 K/mm3 (150-450); RBC Distribution Width CV 15.1 % (11.6-14.6); RBC Distribution Width SD 54.3 fl (35.1-43.9); Red Blood Count 2.95 M/mm3 (4.6-6.2); White Blood Count 6.6 K/mm3 (4.4-11.0)
[2023-11-06 06:44] LABS: ALB/GLOB Ratio 1.1 RATIO (0.9-2.4); AST(SGOT) 311 U/L (15-37); Alanine Aminotransfer ALT/SGPT 233 U/L (16-61); Albumin, Serum 3.2 g/dL (3.2-5.0); Alkaline Phosphatase 73 U/L (45-117); Anion Gap 4 (5-15); BUN 11 mg/dL (7-18); BUN/Creat Ratio 13.3 RATIO (10-20); Calcium,Total 8.5 mg/dL (8.5-10.1); Chloride 110 mmol/L (98-107); Creatinine, Serum 0.82 mg/dL (0.70-1.30); EST Glomerular Filtration Rate 95 mL/min (>60); Est Glom Filt Rate - Afr Amer 115 mL/min (>60); Estimated Creatinine Clearance 62.96 ml/min; Globulin 2.8 g/dL (2.2-4.2); Glucose 157 mg/dL (74-106); Potassium 3.4 mmol/L (3.5-5.1); Sodium Level 139 mmol/L (136-145)
[2023-11-06 06:52] LABS: Scan Indicated on CBC? Y/N YES- FLAGS NOTED
[2023-11-06 06:56] LABS: Cholesterol 100 mg/dL (200); High Density Lipoprotein 35 mg/dL; Triglycerides 89 mg/dL; Very Low Density Lipoprotein 18 mg/dL (5-40)
[2023-11-06 06:59] LABS: Magnesium 1.9 mg/dL (1.6-2.6); Phosphorus 1.8 mg/dL (2.5-4.9)
--- NOTE | 2023-11-06 07:43 | CON.PCM.CC_ITS ---
Assessment & Plan Assessment/Plan (1) Cardiopulmonary arrest with successful resuscitation: (2) Pulseless ventricular tachycardia: PLAN: Plan RECOMMENDATIONS: 1. Continue assist-control mode mechanical ventilation. 2. Wean FiO2 and PEEP to maintain saturations at or above 90%. 3. Initiate appropriate GI prophylaxis. 4. Transfuse if hemoglobin drops below 7 g/dL. 5. Plan for daily paired spontaneous awakening and breathing trials. IMPRESSIONS: 1. Acute hypoxemic respiratory failure The patient was ultimately intubated as a consequence of his cardiopulmonary arrest. This appears to be a primary cardiac issue. The patient is doing well from a respiratory perspective on invasive mechanical ventilatory support. Provided that cardiology has not pursuing any additional intervention, we will proceed with aggressive trials to wean the patient from the ventilator. In the interim, continue to wean FiO2 and PEEP to maintain saturations at or above 90%. 2. Cardiopulmonary arrest with ROSC/history of nonobstructive coronary disease/mitral valve prolapse Medical management per cardiology recommendations. 3. Anemia/history of lymphoma with pancytopenia Continue to monitor blood counts and transfuse if hemoglobin drops below 7 g/dL. 4. Questionable obstructive sleep apnea/depression/anxiety/history of AAA/hypertension/hyperlipidemia Complicates care, management, recovery and prognosis. Continue supportive care for now. The patient will require eventual PT/OT evaluations once medically stabilized. TIME: 34 minutes of critical care time, independent of procedures, was spent addressing the patient's acute hypoxemic respiratory failure, cardiopulmonary arrest with ROSC, review of all data and collaboration with the care team. HPI Consult Data Date of Consult: 11/06/23 HPI Narrative Reason for Consultation: Respiratory failure HPI Narrative: The patient is an 82-year-old male, with a history as outlined below, who presented to the emergency department on November 04 with chest pain. History pertinent to his hospitalization was obtained primarily via chart review, as the patient is currently intubated. The patient has a documented history of nonobstructive coronary artery disease, mitral valve prolapse, hypertension, hyperlipidemia and abdominal aortic disease. He is followed in the cardiology clinic by Dr. Herrmann, having last been seen in September 2023. Surface echocardiogram from November 2020 demonstrated normal LV size and function with an ejection fraction of 65%. On initial presentation to the emergency department, the patient was documented to be afebrile and hemodynamically stable. Laboratory evaluation revealed a normal white blood cell count with a hemoglobin of 9.6 g/dL and platelet count of 104,000. Chemistry profile was largely unrevealing. Troponin was negative. Chest x-ray demonstrated no acute cardiopulmonary process. According to ED provider documentation, during his emergency department stay, he once again began to experience chest pain and became nonresponsive. A CODE BLUE was initi ated and the patient was noted to be in pulseless V. tach. ACLS was initiated and the patient was ultimately defibrillated x 2 with subsequent ROSC. As a consequence of this, the patient was intubated. Cardiology was contacted to evaluate the patient. The patient was ultimately taken to the cardiac catheterization lab. Post procedure, he was admitted to the medical intensive care unit. The patient has remained clinically stable overnight. However, he failed a spontaneous breathing trial this morning on account of frequent apneic episodes. [facility] Medical History (Updated 11/06/23 @ 00:[address] Darin Hendrickson, ) Abdominal aortic aneurysm (AAA) Actinic keratosis Adverse drug reaction Alcohol use Allergic rhinitis Anemia Anxiety Atherosclerotic heart disease of [place] coronary artery without angina pectoris Atherosclerotic heart disease of [place] coronary artery without angina pectoris Back pain Benign hematuria Bilateral inguinal hernia without obstruction or gangrene CAD (coronary artery disease) Cancer Cardiology follow-up encounter Carotid stenosis Chest pain Coronary artery disease Coronary atherosclerosis of [place] coronary vessel Cyst of left kidney Cyst of skin Depression Diverticulosis Easy bruising Essential hypertension Excessive bleeding Family history of CVA Former smoker Gallstones GERD (gastroesophageal reflux disease) Hay fever High cholesterol History of diverticulitis History of echocardiogram History of left heart catheterization (LHC) (~10/24/99) History of stress test Hoarseness Hypercholesterolemia Hyperlipidemia Hypertension Iron deficiency Kidney stones Limb weakness Long-term use of high-risk medication Lymphoma Macrocytosis Memory impairment Mitral valve disorder Mixed hyperlipidemia ASHLEY (obstructive sleep apnea) Other seborrheic keratosis Pancytopenia Pancytopenia Premature ventricular contraction Prostate disease Pure hypercholesterolemia Shortness of breath on exertion Sleep apnea Thrombocytopenia Vitamin D deficiency Wears dentures Wears glasses Wears partial dentures Yeast infection of the skin Home Medications aspirin 81 mg tablet,delayed release 81 mg PO DAILY HEART HEALTH 04/28/13 [History Last Taken 09/24/23] losartan 25 mg tablet 25 mg PO DAILY BLOOD PRESSURE #90 tabs 03/22/23 [Rx Last Taken 07/31/23] atenolol 25 mg tablet 12.5 mg PO DAILY BLOOD PRESSURE 07/31/23 [History Last Taken 09/26/23] tamsulosin 0.4 mg capsule 0.4 mg PO DAILY@1730 30 days #30 caps 08/01/23 [Rx Last Taken Unknown] nitroglycerin 0.4 mg sublingual tablet 0.4 mg sublingual Q5-15M PRN CHEST PAIN #30 tabs 09/12/23 [Rx Last Taken Unknown] isosorbide mononitrate 30 mg tablet,extended release 24 hr 30 mg PO DAILY CHEST PAIN #90 tabs 10/24/23 [Rx Last Taken Unknown] simvastatin 20 mg tablet 20 mg PO QHS CHOLESTEROL #90 tabs 10/24/23 [Rx Last Taken Unknown] Allergy/AdvReac Type Severity Reaction Status Date / Time amoxicillin [From Augmentin] Allergy Intermediate Rash Verified 11/05/23 15:40 clavulanic acid Allergy Intermediate Rash Verified 11/05/23 15:40 [From Augmentin] ciprofloxacin [From Cipro] Allergy Hives Verified 11/05/23 15:40 atorvastatin [From Lipitor] AdvReac Intermediate Myalgias Verified 11/05/23 15:40 lovastatin [From Mevacor] AdvReac Intermediate Myalgias Verified 11/05/23 15:40 lisinopril AdvReac Mild Cough Verified 11/05/23 15:40 Family History Father CAD (coronary artery disease) Diabetes Cancer prostate Myocardial infarction Sister CVA (cerebral vascular accident) Mother Emphysema, unspecified COPD (chronic obstructive pulmonary disease) Right heart failure Surgical History History of cardiac catheterization History of cystoscopy History of hernia surgery History of removal of neck cyst Hx of appendectomy Hx of surgical procedure Hx of tonsillectomy Social History household members: spouse Smoking Status: Former smoker how long ago did patient quit smokin years ago alcohol intake: current details: rare substance use type: does not use caffeine: Yes Type: coffee Number of servings: 1 ROS Review of Systems ROS Unobtainable: due to endotracheal tube Physical Exam Const Constitutional Narrative: Intubated, sedated and mechanically ventilated. HEENT normocephalic and head/scalp atraumatic Mouth: endotracheal tube in place and OG tube in place Eyes PERRL, EOMs intact bilaterally and conjunctivae normal Neck supple General: trachea midline Chest inspection of chest normal Resp normal respiratory effort Auscultation: Negative for rales, rhonchi or wheezes Cardio regular rate and regular rhythm GI normal to inspection, nondistended, normoactive bowel sounds Extremity no clubbing, cyanosis or edema Skin no rashes or lesions noted Neuro Neuro Narrative: The patient is currently alert and able to follow simple commands. Lab / Micro Data 11/06/23 04:40 11/06/23 04:40 Labs: Laboratory Results - last 24 hr 11/05/23 15:53: WBC 2.6 L, RBC 3.56 L, Hgb 11.6 L, Hct 35.7 L, MCV 100.3 H, MCH 32.6 H, MCHC 32.5, RDW Std Deviation 54.4 H, RDW Coeff of [place] 14.8 H, Plt Count 111 L, MPV 10.2, Immature Gran % (Auto) 0.800, Neut % (Auto) 35.8 L, Lymph % (Auto) 39.2, [place] % (Auto) 21.9 H, Eos % (Auto) 1.9, Baso % (Auto) 0.4, Absolute Neuts (auto) 0.9 L, Absolute Lymphs (auto) 1.02, Nucleated RBC % 0, Differential Comment SCANNED, Sodium 139, Potassium 3.7, Chloride 108 H, Carbon Dioxide 29.0, Anion Gap 2 L, BUN 10, Creatinine 0.80, Estim Creat Clear Calc 65.35, Est GFR (MDRD) Af Amer 119, Est GFR (MDRD) Non-Af 99, BUN/Creatinine Ratio 12.5, Glucose 97, Calcium 9.6, Troponin I High Sens 42 11/05/23 18:13: Troponin I High Sens 62 11/05/23 19:45: PT 15.5 H, INR 1.2, APTT 39.1 H, Magnesium 2.1 11/06/23 04:40: WBC 6.6, RBC 2.95 L, Hgb 9.6 L, Hct 29.3 L, MCV 99.3 H, MCH 32.5 H, MCHC 32.8, RDW Std Deviation 54.3 H, RDW Coeff of [place] 15.1 H, Plt Count 104 L , MPV 10.5, Sodium 139, Potassium 3.4 L, Chloride 110 H, Carbon Dioxide 25.0, Anion Gap 4 L, BUN 11, Creatinine 0.82, Estim Creat Clear Calc 62.96, Est GFR (MDRD) Af Amer 115, Est GFR (MDRD) Non-Af 95, BUN/Creatinine Ratio 13.3, Glucose 157 H, Calcium 8.5, Phosphorus 1.8 L, Magnesium 1.9, Total Bilirubin 1.00, AST 311 H, ALT 233 H, Alkaline Phosphatase 73, Total Protein 6.0 L, Albumin 3.2, Globulin 2.8, Albumin/Globulin Ratio 1.1, Triglycerides 89, Cholesterol 100, LDL Cholesterol 47, VLDL Cholesterol 18, HDL Cholesterol 35 L, TSH 2.50 ABG Data ABG results: ABG 11/05/23 20:07 Specimen Type ART Sample Site R Radial pH 7.38 Bicarbonate Actual 21.2 L Total CO2 22 Base Excess -4 L O2 Saturation 100 H O2 % 50.0 ABG pCO2 35.8 ABG pO2 195 H Jesu Test Positive Respiration Rate 12 O2 Delivery Device ET Tube Vent Mode AC Tidal Volume 450.0 POC PEEP 5 Imaging Radiology Impression Chest X-Ray 11/05/23 16:00 IMPRESSION: No radiographic evidence of acute cardiopulmonary disease. Electronically Signed: Jayro Manzanares DO at 16:55 EDT , Chest X-Ray 11/05/23 19:50 IMPRESSION: No radiographic evidence of acute cardiopulmonary disease. Electronically Signed: Jayro Manzanares DO at 20:35 EDT , KUB X-Ray 11/05/23 19:50 IMPRESSION: Nasogastric tube in the stomach. Electronically Signed: Jayro Manzanares DO at 20:36 EDT , Charges/Coding Procedures Hospitalists Procedures: [id number] Critical Care 1st Hr
[2023-11-06] MEDS: Aspirin E.C. 81 MG Tablet PO (08:27)
--- NOTE | 2023-11-06 10:00 | EKG12_ITS ---
Test Reason : am ekg Blood Pressure : / mmHG Vent. Rate : 061 BPM Atrial Rate : 061 BPM P-R Int : 164 ms QRS Dur : 084 ms QT Int : 408 ms P-R-T Axes : 057 038 072 degrees QTc Int : 410 ms Normal sinus rhythm Nonspecific T wave abnormality Abnormal ECG When compared with ECG of 05-NOV-2023 19:48, MANUAL COMPARISON REQUIRED, DATA IS UNCONFIRMED Confirmed by CLIFF ANDREA, KRISTEN ([id number]), editor school photograph RUPERTO POON ([id number]) on 11/11/2023 1:49:24 PM Referred By: Confirmed By:SAMPSON CORONADO MD
[2023-11-06] MEDS: Pantoprazole Sodium 40 MG in 0.9% Normal Saline (100mL MB+) 100 ML 330 MG IV (10:05)
[2023-11-06] MEDS: TICAGRELOR 90 MG TABLET PO ×2 (10:05→22:31)
[2023-11-06] MEDS: Potassium Phosphate 15 MM in 0.9% Normal Saline (250mL Bag) 250 ML 125 MM IV (11:56)
[2023-11-06] MEDS: Chlorhexidine 15 ML PO ×2 (12:41→22:34)
--- NOTE | 2023-11-06 14:10 | ECHOD_ITS ---
Reason For Study: CARDIAC ARREST Procedure This was a 2D Doppler, Color Flow transthoracic echocardiogram. The study was technically difficult. Limited views were obtained. Exam was performed from the subcostal window, patient was on a vent. Exam performed portable in ICU/CCU. Left Ventricle Normal LV size. The estimated ejection fraction is 50-55 %. No evidence for diastolic dysfunction. [place] : Hypokinetic. Right Ventricle Normal RV size. Normal systolic function. Atria Normal left atrium. Normal right atrium. No doppler evidence for ASD. Mitral Valve There is no mitral valve stenosis. No mitral valve insufficiency. Tricuspid Valve There is no tricuspid stenosis. Trivial tricuspid valve insufficiency. Unable to estimate RV systolic pressure due to insufficient tricuspid regurgitant envelope. Aortic Valve Trisinus/trileaflet aortic valve. There is no aortic stenosis. Trivial aortic valve insufficiency. Pulmonic Valve There is no pulmonic valvular stenosis. No pulmonic valve insufficiency. Great Vessels Normal aortic root. Pericardium/Pleural No pericardial effusion. MMode/2D Measurements & Calculations LVIDd: 4.6 cm IVSd: 1.1 cm LVOT diam: 2.0 cm LVIDs: 2.3 cm LVPWd: 0.91 cm LVOT area: 3.3 cm2 RVDd: 3.9 cm FS: 51.3 % Ao root diam: 3.5 cm LAV(MOD-sp4): 36.7 ml LVAd ap4: 20.9 cm2 LVLd ap4: 6.6 cm EDV(MOD-sp4): 53.1 ml EDV(sp4-el): 56.0 ml LVAs ap4: 13.4 cm2 LVLs ap4: 6.2 cm ESV(MOD-sp4): 24.3 ml ESV(sp4-el): 24.4 ml EF(MOD-sp4): 54.2 % EF(sp4-el): 56.4 % SV(MOD-sp4): 28.7 ml SV(sp4-el): 31.6 ml LA A4 area: 14.8 cm2 LA dimension(2D): 3.2 cm RA A4 area: 14.5 cm2 TAPSE: 2.0 cm Time Measurements MV dec time: 0.25 sec Doppler Measurements & Calculations MV E max buster: 34.9 cm/sec Lat Peak E' Buster: 7.6 cm/sec Med Peak E' Buster: 6.5 cm/sec MV A max buster: 57.9 cm/sec E/E' lat: 4.6 E/E' med: 5.3 MV E/A: 0.60 Ao V2 max: 147.8 cm/sec LV V1 max: 126.4 cm/sec MV dec slope: 141.2 cm/sec2 Ao max P.7 mmHg LV V1 max P.4 mmHg Ao V2 mean: 100.5 cm/sec LV V1 mean P.3 mmHg Ao mean P.5 mmHg LV V1 mean: 86.1 cm/sec Ao V2 VTI: 29.8 cm LV V1 VTI: 22.6 cm AV (velocity ratio): 0.76 CATHERINE(I,D): 2.5 cm2 CATHERINE(V,D): 2.8 cm2 SV(LVOT): 73.8 ml PA V2 max: 130.7 cm/sec TR max butser: 220.7 cm/sec PA max PG (full): 4.2 mmHg TR max P.5 mmHg ECHO/Echo Complete Interpretation Summary The estimated ejection fraction is 50-55 %. No evidence for diastolic dysfunction. [place] : Hypokinetic. Trivial aortic valve insufficiency. Ordering Physician: Vicki Robert Referring Physician: Radha Olivas M.D. Performed By: Leslie Millard RDCS
--- NOTE | 2023-11-06 14:25 | CRPHASE1_ITS ---
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 Our purpose is to help you have a full recovery and achieve the goals you set for yourself. Over the years many of our patients have returned to activities they assumed they would never do again! We can help restore your confidence and motivation to make lifestyle changes that can have a significant impact on your health and quality of life! We can help answer questions and concerns you may have about exercise, lifestyle, medications, diet, stress and anxiety which are common following a hospitali zation. WE monitor ECG and vital signs during exercise and discuss your progress with you and report to your physician(s). Cardiac Rehab is proven to help reduce readmissions, improve functional capacity and lower recurrence of problems with your heart. Our Cardiac Rehab program is Certified by the [place] [employer]-V[employer] Pulmonary [employer] (AACVPR) and Accredited by the [place] [employer] through our [facility]. You can contact us at . We invite you to call us with your questions or to get started in our program. If you have other questions or concerns be sure to ask your physician/provider during your follow-up visit. WE look forward to seeing you!
--- NOTE | 2023-11-06 14:28 | CRPH1.INSTRU ---
General Education Discussed with Patient CAD and cardiac anatomy and function:: Patient communicates acknowledgment Explanation of diagnoses and procedures:: Patient communicates acknowledgment Sign/Symptoms of VT:: Patient communicates acknowledgment Antiplatelet therapy: Patient communicates acknowledgment Proper use of NTG-SL: Patient communicates acknowledgment Emergency procedures and activation of EMS: Patient communicates acknowledgment Compliance of all prescribed medications: Patient communicates acknowledgment Smoking Risk Factors Patient Nicotine/Smoking Risk Factors Are:: Cigarettes Recommendations Recommendations Include:: Previous smoker; encourage continued cessation Response Code Nicotine/Smoking Response Code:: Patient communicates acknowledgment Dyslipidemia Risk Factors Patient Dyslipidemia Risk Factors Are:: Total Cholesterol, Triglycerides, HDL and LDL Recommendations Recommendations Include:: Lipid profile not available, Reviewed NCEP/ATP guidelines and Therapeutic Lifestyle Change dietary guidelines Response Code Dyslipidemia Response Code:: Patient communicates acknowledgment Overweight/Obesity Risk Factors Patient Overweight/Obesity Risk Factors Are:: BMI Normal [18-25 & < 65 years old] Recommendations Recommendations Include:: Weight loss of 5-10%, Reduced calorie diet and Exercise 5-7 times/week Response Code Overweight/Obesity:: Patient communicates acknowledgment Hypertension Response Code Hypertension:: Patient communicates acknowledgment Heart Disease Risk Factors Patient Heart Disease Risk Factors Are:: Family history of heart disease < 65 years old and Previous cardiac event Recommendations Recommendations Include:: Educated family members of their risk Response Code Heart Disease Response Code:: Patient communicates acknowledgment Diabetes Response Code Diabetes:: Patient communicates acknowledgment Metabolic Syndrome Risk Factors Patient Metabolic Syndrome Risk Factors Are [3 of 5]:: High triglyceride >150 Recommendations Recommendations Include:: Does not meet criteria Response Code Metabolic Syndrome Response Code:: Patient communicates acknowledgment Sedentary Recommendations Recommendations Include:: Aerobic exercise 5-7 times/week for 20-30 minutes continuously Response Code Sedentary Response Code:: Patient communicates acknowledgment Stress Risk Factors Patient Stress Risk Factors Are:: Patient denies stress as a risk factor Recommendations Recommendations Include:: Identification of stressors, and assessment of coping skills Response Code Stress Response Code:: Patient communicates acknowledgment
--- NOTE | 2023-11-06 14:32 | PN.CARD_ITS ---
Subjective Subjective Patient is intubated, sedated. Telemetry did not reveal any further V. tach, pauses or SVT. Objective Data Vital Signs: Vital Signs Temp Pulse Resp BP Pulse Ox O2 Del Method FiO2 98.2 F 87 13 124/60 H 99 Mechanical Ventilator 11/06/23 13:00 11/06/23 14:00 11/06/23 14:00 11/06/23 14:00 11/06/23 14:00 11/06/23 14:00 11/06/23 14:00 Oxygen Delivery Method Mechanical Ventilator Weight: 138 lb 14.259 oz Body Mass Index (BMI) 21.1 Intake & Output: Intake and Output for Last 24 Hours 11/04/23 11/05/23 11/06/23 23:59 23:59 23:59 Intake Total 167.59 / 175.09 1407.31 / 1407.31 Output Total 1025 / 1025 Balance 167.59 / 175.09 382.31 / 382.31 Lab / Micro Data 11/06/23 04:40 11/06/23 04:40 Labs: Laboratory Results - last 24 hr 11/05/23 15:53: WBC 2.6 L, RBC 3.56 L, Hgb 11.6 L, Hct 35.7 L, MCV 100.3 H, MCH 32.6 H, MCHC 32.5, RDW Std Deviation 54.4 H, RDW Coeff of [place] 14.8 H, Plt Count 111 L, MPV 10.2, Immature Gran % (Auto) 0.800, Neut % (Auto) 35.8 L, Lymph % (Auto) 39.2, [place] % (Auto) 21.9 H, Eos % (Auto) 1.9, Baso % (Auto) 0.4, Absolute Neuts (auto) 0.9 L, Absolute Lymphs (auto) 1.02, Nucleated RBC % 0, Differential Comment SCANNED, Sodium 139, Potassium 3.7, Chloride 108 H, Carbon Dioxide 29.0, Anion Gap 2 L, BUN 10, Creatinine 0.80, Estim Creat Clear Calc 65.35, Est GFR (MDRD) Af Amer 119, Est GFR (MDRD) Non-Af 99, BUN/Creatinine Ratio 12.5, Glucose 97, Calcium 9.6, Troponin I High Sens 42 11/05/23 18:13: Troponin I High Sens 62 04/23/24 19:45: PT 15.5 H, INR 1.2, APTT 39.1 H, Magnesium 2.1 11/06/23 04:40: WBC 6.6, RBC 2.95 L, Hgb 9.6 L, Hct 29.3 L, MCV 99.3 H, MCH 32.5 H, MCHC 32.8, RDW Std Deviation 54.3 H, RDW Coeff of [place] 15.1 H, Plt Count 104 L , MPV 10.5, Differential Comment COMMENT, Sodium 139, Potassium 3.4 L, Chloride 110 H, Carbon Dioxide 25.0, Anion Gap 4 L, BUN 11, Creatinine 0.82, Estim Creat Clear Calc 62.96, Est GFR (MDRD) Af Amer 115, Est GFR (MDRD) Non-Af 95, BUN/Creatinine Ratio 13.3, Glucose 157 H, Calcium 8.5, Phosphorus 1.8 L, Magnesium 1.9, Total Bilirubin 1.00, AST 311 H, ALT 233 H, Alkaline Phosphatase 73, Total Protein 6.0 L, Albumin 3.2, Globulin 2.8, Albumin/Globulin Ratio 1.1, Triglycerides 89, Cholesterol 100, LDL Cholesterol 47, VLDL Cholesterol 18, HDL Cholesterol 35 L, TSH 2.50 ABG Data ABG results: ABG 11/05/23 20:07 Specimen Type ART Sample Site R Radial pH 7.38 Bicarbonate Actual 21.2 L Total CO2 22 Base Excess -4 L O2 Saturation 100 H O2 % 50.0 ABG pCO2 35.8 ABG pO2 195 H Jesu Test Positive Respiration Rate 12 O2 Delivery Device ET Tube Vent Mode AC Tidal Volume 450.0 POC PEEP 5 Cardiology Labs/Tests 11/05/23 15:53: WBC 2.6 L, RBC 3.56 L, Hgb 11.6 L, Hct 35.7 L, MCV 100.3 H, MCH 32.6 H, MCHC 32.5, Plt Count 111 L, MPV 10.2, Immature Gran % (Auto) 0.800, Neut % (Auto) 35.8 L, Lymph % (Auto) 39.2, [place] % (Auto) 21.9 H, Eos % (Auto) 1.9, [place] % (Auto) 0.4, Absolute Neuts (auto) 0.9 L, Nucleated RBC % 0, Sodium 139, Potassium 3.7, Chloride 108 H, Carbon Dioxide 29.0, Anion Gap 2 L, BUN 10, Creatinine 0.80, Est GFR (MDRD) Af Amer 119, Est GFR (MDRD) Non-Af 99, BUN/Crea tinine Ratio 12.5, Glucose 97, Calcium 9.6 11/05/23 19:45: PT 15.5 H, INR 1.2, APTT 39.1 H, Magnesium 2.1 11/05/23 20:07: pH 7.38, Bicarbonate Actual 21.2 L, Base Excess -4 L, O2 Saturation 100 H, ABG pCO2 35.8, ABG pO2 195 H, Jesu Test Positive 11/06/23 04:40: WBC 6.6, RBC 2.95 L, Hgb 9.6 L, Hct 29.3 L, MCV 99.3 H, MCH 32.5 H, MCHC 32.8, Plt Count 104 L, MPV 10.5, Sodium 139, Potassium 3.4 L, Chloride 110 H, Carbon Dioxide 25.0, Anion Gap 4 L, BUN 11, Creatinine 0.82, Est GFR (MD RD) Af Amer 115, Est GFR (MDRD) Non-Af 95, BUN/Creatinine Ratio 13.3, Glucose 157 H, Calcium 8.5, Phosphorus 1.8 L, Magnesium 1.9, Total Bilirubin 1.00, T riglycerides 89, Cholesterol 100, LDL Cholesterol 47, VLDL Cholesterol 18, HDL Cholesterol 35 L Rhythm: EKG: ECHO: Stress Test: Cardiac Cath: PCI: CT Surgery: Holter monitor: EPS: PPM: CXR: Chest CT Scan: Radiography Diagnostic Testing: Radiology Impression Chest X-Ray 11/05/23 16:00 IMPRESSION: No radiographic evidence of acute cardiopulmonary disease. Electronically Signed: Jayro Manzanares DO at 16:55 EDT , Chest X-Ray 11/05/23 19:50 IMPRESSION: No radiographic evidence of acute cardiopulmonary disease. Electronically Signed: Jayro Manzanares DO at 20:35 EDT , KUB X-Ray 11/05/23 19:50 IMPRESSION: Nasogastric tube in the stomach. Electronically Signed: Jayro Manzanares DO at 20:36 EDT Reading Location ID and State: [facility] / MD Tel [phone], Service support , Physical Exam Const Constitutional Narrative: Intubated, sedated Cardio regular rate Assessment & Plan Assessment/Plan (1) Non-STEMI (non-ST elevated myocardial infarction): PLAN: Continue aspirin, Brilinta, beta-nilda. Patient has had intolerance to statins in the past. Will check 2D echo. May consider revascularization of RCA +/- LAD this admission. (2) Cardiopulmonary arrest with successful resuscitation: Charges/Coding Visit Charges Inpatient E&M: 44820 Subs Hosp L1
--- NOTE | 2023-11-06 15:09 | CASEMGMT ---
RN CM Assessment Face to Face with patient for initial transition planning/care coordination assessment. Pt is currently intubated and is unable to answer this RN CM questions for assessment. Pt family ( and son) are agreeable to answering this RN CM questions. Care providers, pharmacy, and demographics verified. Admitting dx: STEMI, RF LACE Strata: 2 PCP: Brendon Specialists: Leticia GARCIA Preferred Pharmacy: [facility] Insurance: [facility] ADV HMO Prescription Benefit: Yes LNOK: Cornelia Jolly (W), Clint Jolly (Son) Living Arrangements: Pt lives with his in a single story home with a BM with HR with 2 steps to enter ADLs/IADLs: Normally ind. Pt helps at times when needed Transportation: Self, DME: Cane. Walk in shower with seat. HHC/SNF: Denies history Plan: TBD. Pt and son state that the pt will want to come home at time of DC. Dr. Nguyễn states that we are going to try to extubate the pt tomorrow again. Pt will then be seen by therapy once ready. Pt son and state that the pt would be most interested in OP therapy compared to HHC or SNF placement. CM to follow. Jackie West RN CM
--- NOTE | 2023-11-06 15:45 | CL.I_ITS ---
Patient Name: YAIR MCCORD Study Date: 11/05/2023 Performing: Joel Robert MD Ht: 68 inches 172.72 cm : 1940 Wt: 140.65 lbs 63.8 kg Age: 82 Gender: male BSA: 1.76 PROCEDURE(S) PERFORMED DC02-(33177)LHC/COR IC01-([id number])PTCA, SINGLE CORONARY ARTERY CLINICAL PROFILE AND CO-MORBIDITIES Indications: ACS <= 24 hrs Heart Failure: None Stress/Imaging Stress/Image Study Performed: No CAD Presentations: Non-STEMI. Symptom onset Date/Time: Time Not Available CONCLUSIONS CAD as described. Successful PTCA alone of the RPDA and RCA. RECOMMENDATIONS Patient needs staged PCI of the LAD +/- RCA DESCRIPTION OF PROCEDURE The patient arrived to the procedure lab. The risks and benefits of the procedure as well as a full description of our services here and lack of surgical backup were fully explained to the patient and/or their significant other prior to the catheterization. The Timeout was completed, verifying the correct patient and procedure. The patient's procedural site was prepped and draped in the usual fashion. Local anesthetic was given subcutaneously to right radial region with Lidocaine 2%. Using a modified Seldinger technique, arterial access was obtained via the right radial artery, a 6Fr sheath was inserted.. Left Coronary Artery selective angiography was performed in multiple views using a 5 Fr. JL3.5 catheter. Right Coronary Artery selective angiography was then performed in multiple views using a 5 Fr. JR 4 catheterThe images were reviewed and options discussed. A decision was then made to proceed with an Intervention, IVUS or other adjunct procedure. JR 4 Guide catheter was inserted and engaged into the RCA. BMW Guide wire was advanced to the Right PDA. Emerge 2.00x12 Balloon catheter was inserted. PTCA balloon inflated at 12 atms for 8 secs. Angiogram performed post balloon dilatation. 6fr guideliner Guide catheter was inserted and engaged into the RCA. Emerge 2.00x15 Balloon catheter was inserted. PTCA balloon inflated at 6 atms for 10 secs. PTCA balloon inflated at 8 atms for 11 secs. PTCA balloon inflated at 8 atms for 11 secs. Angiogram performed post balloon dilatation. Emerge 3.50x20 Balloon catheter was inserted. PTCA balloon inflated at 8 atms for 13 secs. PTCA balloon inflated at 10 atms for 28 secs. PTCA balloon inflated at 6 atms for 6 secs. PTCA balloon inflated at 12 atms for 30 secs. PTCA balloon inflated at 12 atms for 25 secs. Angiogram performed post balloon dilatation. NC Emerge 3.50x30 Balloon catheter was inserted. Angiogram performed post balloon dilatation. The arterial sheath was pulled and a TR Band was applied for hemostasis w/ 9ml air CORONARY ANGIOGRAPHY DOMINANCE: Right Dominant LEFT MAIN: Mild luminal irregularities LEFT ANTERIOR DESCENDING ARTERY: PROX LAD: Mild diffuse narrowing. Heavily calcified. MID LAD: 90-95 % Stenosis CIRCUMFLEX ARTERY: Mild to moderate diffuse disease RIGHT CORONARY ARTERY: MID RCA: 80 % Stenosis RT PDA: Mid - 99 % Stenosis INTERVENTION INFORMATION LESION SITE: RT PDA (Mid) Lesion Complexity: High/C, chronic total occlusion: No, lesion at bifurcation: No, thrombus present: No, lesion length: 12 mm, culprit lesion: Yes, Previously treated lesion: No Pre Stenosis: 99 % Pre intervention DAQUAN flow: 2 PROCEDURE: Balloon Angioplasty The vessel is about 2 mm in diameter. The plan was to proceed with PTCA alone with stenting as a rescue option in this situation. Since the patient had good angioplasty result we felt that PTCA alone is likely to be just as good as stent placement in this location. Post Stenosis: 30 % Post intervention DAQUAN flow: 3 Lesion Devices: Min Sci EMERGE MR 2.00x12 BALLOON Marroquin .014 190cm BMW [employer]ium Straight Cordis 6 Fr JR4 100cm Guide Catheter V[employer] Solutions 6 Azeri GuideLiner Min Sci EMERGE MR 2.00x15 BALLOON LESION SITE: RCA (Mid) Lesion Complexity: High/C, chronic total occlusion: No, lesion at bifurcation: No, thrombus present: No, lesion length: 28 mm, culprit lesion: Yes, Previously treated lesion: No Pre Stenosis: 80 % Pre intervention DAQUAN flow: 3 PROCEDURE: Balloon Angioplasty There was improved and stable result after PTCA alone. Stent could not be placed because there was incomplete expansion of the PTCA balloon. Stent placement would likely result in underexpansion of the stent and increased risk of stent thrombosis. Patient will likely need lithotripsy or rotablation if stent placement is required. At this point we felt that it is reasonable to stop the procedure with a stable result and reevaluate at a later time if further revascularization to the RCA is required Post Stenosis: 30 % Post intervention DAQUAN flow: 3 Lesion Devices: Marroquin .014 190cm [employer] Straight Cordis 6 Fr JR4 100cm Guide Catheter [employer] Solutions 6 Azeri GuideLiner Min Sci EMERGE MR 3.50x20 BALLOON Min Sci NC EMERGE MR 3.50x30 BALLOON COMPLICATIONS No Complications PROCEDURE MEDICATIONS Oxygen: 30 % FiO2 via ventilator. See Resp Record for Settings Brilinta 180 mg OG @ 11/05/2023 21:53:42 Heparin given IA 11/05/2023 21:40:12 Verapamil 1.25mg, Ntg 50mcgs, 3000 units of Heparin given IA 11/05/2023 21:40:12 SUMMARY OF HEMODYNAMIC DATA Time AIR REST ECG 21:27:21 AO 97/56 (73) SA 21:43:21 Signed By Joel Robert MD On 11/07/2023 12:09:45 Joel Robert MD
--- NOTE | 2023-11-06 16:51 | PCM.PN.HOSP ---
Reason for Visit Reason for Visit: Diagnoses Non-Hodgkin lymphoma, unspecified, unspecified site (11/06/23) Thrombocytopenia, unspecified (11/06/23) Decreased white blood cell count, unspecified (11/06/23) Unstable angina (11/06/23) Non-ST elevation (NSTEMI) myocardial infarction (11/06/23) Cardiac arrest, cause unspecified (11/06/23) Other ventricular tachycardia (11/06/23) Chest pain, unspecified (11/06/23) Subjective Subjective Patient was seen and examined today I talked at length to 2 of his family members and the patient, patient is awake and lightly sedated on the ventilator, he understands conversation and nods his head. Echocardiogram results are not back yet from today, urine outputs been a little low and I gave an order for 500 cc of fluid over 2 hours. I talked this morning with critical care and they felt that the patient could be extubated tomorrow if he remains clinically stable. He became apneic during his weaning trial today and he was not extubated. Objective Data Objective Data Vital Signs: Vital Signs Temp Pulse Resp BP Pulse Ox O2 Del Method FiO2 98.2 F 68 11 L 116/55 L 98 Mechanical Ventilator 21 11/06/23 16:00 11/06/23 16:32 11/06/23 16:32 11/06/23 16:32 11/06/23 16:32 11/06/23 16:32 11/06/23 16:32 Oxygen Delivery Method Mechanical Ventilator Weight: 63 kg Body Mass Index (BMI) 21.1 Intake & Output: Intake and Output for Last 24 Hours 11/04/23 11/05/23 11/06/23 23:59 23:59 23:59 Intake Total 167.59 / 175.09 1729.81 / 1729.81 Output Total 1175 / 1175 Balance 167.59 / 175.09 554.81 / 554.81 Lab / Micro Data 11/06/23 04:40 11/06/23 04:40 Labs: Laboratory Results - last 24 hr 11/05/23 15:53: Differential Comment SCANNED 11/05/23 18:13: Troponin I High Sens 62 11/05/23 19:45: PT 15.5 H, INR 1.2, APTT 39.1 H, Magnesium 2.1 11/06/23 04:40: WBC 6.6, RBC 2.95 L, Hgb 9.6 L, Hct 29.3 L, MCV 99.3 H, MCH 32.5 H, MCHC 32.8, RDW Std Deviation 54.3 H, RDW Coeff of [place] 15.1 H, Plt Count 104 L, MPV 10.5, Differential Comment COMMENT, Sodium 139, Potassium 3.4 L, Chloride 110 H, Carbon Dioxide 25.0, Anion Gap 4 L, BUN 11, Creatinine 0.82, Estim Creat Clear Calc 62.96, Est GFR (MDRD) Af Amer 115, Est GFR (MDRD) Non-Af 95, BUN/Creatinine Ratio 13.3, Glucose 157 H, Calcium 8.5, Phosphorus 1.8 L, Magnesium 1.9, Total Bilirubin 1.00, AST 311 H, ALT 233 H, Alkaline Phosphatase 73, Total Protein 6.0 L, Albumin 3.2, Globulin 2.8, Albumin/Globulin Ratio 1.1, Triglycerides 89, Cholesterol 100, LDL Cholesterol 47, VLDL Cholesterol 18, HDL Cholesterol 35 L, TSH 2.50 ABG Data ABG results: ABG 11/05/23 20:07 Specimen Type ART Sample Site R Radial pH 7.38 Bicarbonate Actual 21.2 L Total CO2 22 Base Excess -4 L O2 Saturation 100 H O2 % 50.0 ABG pCO2 35.8 ABG pO2 195 H Jesu Test Positive Respiration Rate 12 O2 Delivery Device ET Tube Vent Mode AC Tidal Volume 450.0 POC PEEP 5 Radiography Diagnostic Testing: Radiology Impression Chest X-Ray 11/05/23 16:00 IMPRESSION: No radiographic evidence of acute cardiopulmonary disease. Electronically Signed: Jayro Manzanares DO at 16:55 EDT , Chest X-Ray 11/05/23 19:50 IMPRESSION: No radiographic evidence of acute cardiopulmonary disease. Electronically Signed: Jayro Manzanares DO at 20:35 EDT , KUB X-Ray 11/05/23 19:50 IMPRESSION: Nasogastric tube in the stomach. Electronically Signed: Jayro Manzanares DO at 20:36 EDT Reading Location ID and State: [facility] / [place] Tel [phone], Service support , Physical Exam Const alert, no apparent distress and average body habitus HEENT head/scalp atraumatic and moist oral mucous membranes Eyes PERRL, EOMs intact bilaterally and conjunctivae normal Neck supple and no JVD Resp normal respiratory effort, no retractions, no use of accessory muscles and clear to auscultation bilaterally Cardio regular rate, regular rhythm, S1 normal heart sound, S2 normal heart sound and no murmurs GI normal to inspection, nondistended, normoactive bowel sounds, soft to palpation, non-tender and non-distended Extremity normal to inspection Neuro CN's II-XII intact bilaterally, moves all extremities and no focal motor deficits Neuro Narrative: Patient is alert and on the ventilator, he does respond to simple questions by shaking his head yes or no. Sensorium / Orientation: awake and alert Psych Psych Narrative: Patient is awake and alert on the ventilator Assessment & Plan Assessment/Plan (1) Thrombocytopenia: PLAN: Plan 1 cardiopulmonary arrest secondary to pulseless ventricular tachycardia from [id number] appears stable at this time, I talked to cardiology about his care today and I discussed his care with family members. 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 It may be necessary in the future to bring the patient back for outpatient repeat catheterization to address the LAD lesion. #3 respiratory arrest with emergent intubation-I talk with pulmonary medicine today, since the patient failed his weaning trial this morning, he was kept on the ventilator under light sedation, patient will probably undergo extubation tomorrow morning. #4 history of pancytopenia-I talked with the patient's oncology office and he has no history of lymphoma, it was just noted that he had pancytopenia which was felt to be possibly due to fatty liver disease. There are no follow-up appointments for the patient to be seen in the oncology department at [facility]. #5 essential hypertension-patient is currently off his home medications for hypertension, he is on a beta-nilda however, this will need to be readdressed after the patient is extubated. Total clinical time spent by myself addressing the patient's medical issues, reviewing all of his data, and collaborating with patient's care team: 50 minutes Charges/Coding Visit Charges Inpatient E&M: [id number] [facility] Hosp L3
[2023-11-06] MEDS: 0.9% Normal Saline (500mL Bag) 500 ML 250 ML IV (17:32)
[2023-11-06] MEDS: fentaNYL drip 100 ML 10 MCG CONT INF (17:37)
[2023-11-06] MEDS: Metoprolol Tartrate 25 MG Tablet 12.5 MG PO (22:31)
--- NOTE | 2023-11-06 22:45 | EKG12_ITS ---
Test Reason : CP Blood Pressure : / mmHG Vent. Rate : 081 BPM Atrial Rate : 081 BPM P-R Int : 158 ms QRS Dur : 092 ms QT Int : 400 ms P-R-T Axes : 067 080 088 degrees QTc Int : 464 ms Critical Test Result: STEMI Normal sinus rhythm Inferior infarct , possibly acute ACUTE SC / STEMI Consider right ventricular involvement in acute inferior infarct Abnormal ECG When compared with ECG of 05-NOV-2023 16:05, MANUAL COMPARISON REQUIRED, DATA IS UNCONFIRMED Confirmed by JOLEEN ANDREA, JONN ([id number]), greeting card editor RUPERTO POON ([id number]) on 11/12/2023 6:01:38 AM Referred By: ANAM Confirmed By:JONN GOODRICH MD
[2023-11-07] VITALS (20 sets, daily range): BP systolic 89–134; BP diastolic 54–70; PULSE 60–110; RESP 10–18; TEMP 36.5–36.6; O2SAT 92–100; BMI 21.7
[2023-11-07] MEDS: Propofol 10MG/Ml 1,000 MG/100 ML Bottle 1.9 MG CONT INF (00:52)
[2023-11-07] MEDS: fentaNYL drip 100 ML 17.5 MCG CONT INF (01:30)
[2023-11-07] MEDS: 0.9% Normal Saline (1000mL) 1,000 ML 75 ML IV (04:56)
[2023-11-07] MEDS: 0.9% Saline Lock 10 ML Syringe IV (04:56)
--- NOTE | 2023-11-07 07:34 | PCM.PN.INT ---
Assessment & Plan Assessment/Plan (1) Cardiopulmonary arrest with successful resuscitation: (2) Pulseless ventricular tachycardia: PLAN: Plan RECOMMENDATIONS: 1. Proceed with a trial of extubation this morning. 2. Once extubated, wean supplemental oxygen to maintain saturations at or above 90%. 3. Bedside swallow evaluation with dietary advancement. 4. Encourage incentive spirometer use and mobilize patient as tolerated. 5. Additional medical management per cardiology and hospitalist. IMPRESSIONS: 1. Acute hypoxemic respiratory failure The patient was ultimately intubated as a consequence of his cardiopulmonary arrest. This appears to be a primary cardiac issue. The patient did well with invasive mechanical ventilatory support was able to be extubated on the morning of November 06. Supplemental oxygen will be continued, if needed, to maintain saturations at or above 90%. Bedside swallow evaluation will be completed with dietary advancement as tolerated. Encourage incentive spirometer use and mobilize patient as tolerated. 2. Cardiopulmonary arrest with ROSC/history of nonobstructive coronary disease/mitral valve prolapse Medical management per cardiology recommendations. 3. Anemia/history of lymphoma with pancytopenia Continue to monitor blood counts and transfuse if hemoglobin drops below 7 g/dL. 4. Questionable obstructive sleep apnea/depression/anxiety/history of AAA/hypertension/hyperlipidemia Complicates care, management, recovery and prognosis. Continue supportive care for now. TIME: 32 minutes of critical care time, independent of procedures, was spent addressing the patient's acute hypoxemic respiratory failure, cardiopulmonary arrest with ROSC, review of all data and collaboration with the care team. Subjective Subjective The patient was seen and examined at the bedside this morning. Events from the last 24 hours have been reviewed. The patient is currently afebrile, hemodynamically stable and maintaining appropriate oxygen saturations on spontaneous mode mechanical ventilation with an FiO2 requirement of 21%. The patient has done well this morning on his spontaneous breathing trial. He does have periodic episodes of apnea. When questioned, the patient did confirm that he has a history of sleep apnea, but does not utilize any form of nocturnal PAP therapy. Objective Data Objective Data The patient's most recent lab work, culture data and imaging studies have all been personally reviewed. Vital Signs: Vital Signs Temp Pulse Resp BP Pulse Ox O2 Del Method FiO2 97.7 F L 83 12 129/64 H 97 Mechanical Ventilator 21 11/07/23 04:00 11/07/23 07:00 11/07/23 07:00 11/07/23 07:00 11/07/23 07:00 11/07/23 07:00 11/07/23 07:00 Oxygen Delivery Method Mechanical Ventilator Weight: 143 lb 1.28 oz Body Mass Index (BMI) 21.7 Intake & Output: Intake and Output for Last 24 Hours 11/05/23 11/06/23 11/07/23 23:59 23:59 23:59 Intake Total 167.59 / 175.09 2843.38 / 2858.38 710.59 / 710.59 Output Total 1575 / 1575 150 / 150 Balance 167.59 / 175.09 1268.38 / 1283.38 560.59 / 560.59 Lab / Micro Data Attestation: I reviewed the patient's lab results. 11/07/23 04:50 11/07/23 04:50 Labs: Laboratory Results - last 24 hr 11/06/23 04:40: Differential Comment COMMENT Physical Exam Const Constitutional Narrative: Intubated and mechanically ventilated. Tolerating SBT. HEENT normocephalic and head/scalp atraumatic Mouth: endotracheal tube in place and OG tube in place Eyes PERRL, EOMs intact bilaterally and conjunctivae normal Neck supple General: trachea midline Chest inspection of chest normal Resp normal respiratory effort Auscultation: Negative for rales, rhonchi or wheezes Cardio regular rate and regular rhythm GI normal to inspection, nondistended, normoactive bowel sounds Extremity no clubbing, cyanosis or edema Skin no rashes or lesions noted Neuro Neuro Narrative: The patient is currently alert and able to follow simple commands. Psych cooperative Charges/Coding Procedures Hospitalists Procedures: [id number] Critical Care 1st Hr
[2023-11-07 07:50] LABS: Absolute Lymphocyte Count 0.35 X10^3/uL (0.83-4.51); Absolute Neutrophil Count 3.4 X10^3/uL (2.0-7.7); Hematocrit 25.7 % (40-54); Hemoglobin 8.4 g/dL (13.0-16.5); Lymphocyte # 0.35 X10^3/ul (0.83-4.51); Lymphocyte % 6.1 % (19-41); Mean Corp Hgb Conc 32.7 g/dL (32-36); Mean Corpuscular Hgb 32.6 pg (27.0-32.0); Mean Corpuscular Volume 99.6 fL (80-94); Mean Platelet Vol. 10.7 fl (6.2-12.0); Monocyte% 33.3 % (0-10); NRBC Flagged by Analyzer 0 % (0-5); Neutrophil # 3.43 X10^3/uL (2.7-7.7); Neutrophil % 60.2 % (47-70); POSITIVE COUNT YES; POSITIVE DIFFERENTIAL YES; Platelet Count 83 K/mm3 (150-450); RBC Distribution Width CV 15.7 % (11.6-14.6); RBC Distribution Width SD 56.4 fl (35.1-43.9); Red Blood Count 2.58 M/mm3 (4.6-6.2); White Blood Count 5.7 K/mm3 (4.4-11.0)
[2023-11-07 07:54] LABS: Differential Indicated SCAN CRITERIA MET
[2023-11-07 08:04] LABS: Anion Gap 7 (5-15); BUN 12 mg/dL (7-18); BUN/Creat Ratio 16.5 RATIO (10-20); Calcium,Total 8.4 mg/dL (8.5-10.1); Chloride 111 mmol/L (98-107); Creatinine, Serum 0.73 mg/dL (0.70-1.30); EST Glomerular Filtration Rate 110 mL/min (>60); Est Glom Filt Rate - Afr Amer 133 mL/min (>60); Estimated Creatinine Clearance 66.48 ml/min; Glucose 112 mg/dL (74-106); Potassium 3.8 mmol/L (3.5-5.1); Sodium Level 140 mmol/L (136-145)
--- NOTE | 2023-11-07 09:20 | CASEMGMT ---
Dr. Branch states that he is planning on transferring this pt for further management of care. Per the pt insurance plan, the following hospitals are in-network: [facility], [facility], [facility] , [facility], [facility], [facility]. updated and aware.
--- NOTE | 2023-11-07 10:00 | EKG12_ITS ---
Test Reason : AM EKG Blood Pressure : / mmHG Vent. Rate : 089 BPM Atrial Rate : 089 BPM P-R Int : 154 ms QRS Dur : 084 ms QT Int : 392 ms P-R-T Axes : 069 049 -76 degrees QTc Int : 476 ms Normal sinus rhythm ST & T wave abnormality, consider inferior ischemia Prolonged QT Abnormal ECG When compared with ECG of 06-NOV-2023 04:59, MANUAL COMPARISON REQUIRED, DATA IS UNCONFIRMED Confirmed by CLIFF ANDREA, KRISTEN ([id number]), film or videotape editor BECKY WHIITNG ([id number]) on 11/11/2023 10:15:37 AM Referred By: Confirmed By:SAMPSON CORONADO MD
[2023-11-07 10:03] LABS: Differential Comment SCANNED
[2023-11-07 10:04] LABS: Platelet Estimate MOD DEC (ADEQ)
[2023-11-07] MEDS: TICAGRELOR 90 MG TABLET PO (10:48)
[2023-11-07] MEDS: Metoprolol Tartrate 25 MG Tablet 12.5 MG PO (10:48)
[2023-11-07] MEDS: Aspirin E.C. 81 MG Tablet PO (10:48)
--- NOTE | 2023-11-07 14:12 | CRPHASE1 ---
Patient Communication Patient Information Former Patient:: Phase I PHII Cardiac Rehab Discussed with Patient:: Yes Guide to Cardiac Rehab Given to Patient:: Yes Cardiac Rehab Facility Choice List Given to Patient:: Yes Communication to Cardiac Rehab Choice Program [facility] CR PHII:: Communication Given to CR [employer]:: Vicki Robert Sessions:: 36 sessions - 3 days/wk, 12 weeks Cardiac Rehabilitation Info Program Information Cardiac Rehabilitation Program Information: Cardiac Rehab The cardiac rehab team at [facility] consists of highly skilled exercise physiologists, nurses, respiratory therapists and physicians working together with you. Our purpose is to help you have a full recovery and achieve the goals you set for yourself. Over the years many of our patients have returned to activities they assumed they would never do again! We can help restore your confidence and motivation to make lifestyle changes that can have a significant impact on your health and quality of life! We can help answer questions and concerns you may have about exercise, lifestyle, medications, diet, stress and anxiety which are common following a hospitalization. WE monitor ECG and vital signs during exercise and discuss your progress with you and report to your physician(s). Cardiac Rehab is proven to help reduce readmissions, improve functional capacity and lower recurrence of problems with your heart. Our Cardiac Rehab program is Certified by the [place] [employer]-Vascular and Pulmonary [employer] (AACVPR) and Accredited by the [place] [employer] through our [facility]. You can contact us at . We invite you to call us with your questions or to get started in our program. If you have other questions or concerns be sure to ask your physician/provider during your follow-up visit. WE look forward to seeing you!
--- NOTE | 2023-11-07 15:38 | NURSING ---
discharged to [facility] per [facility], notified son that he was now enroute
--- NOTE | 2023-11-13 13:44 | PCM.DC.SUM ---
Providers Date of Admission: 11/06/23 Date of Discharge: 12/07/23 Primary Care Physician: Dr. Radha Olivas, DO Consultations 11/06/23 06:42 Consult: Survey Chief / Pulmonary Medicine Routine Consulting Provider: Intensivists/Pulmonary Med Reason for Consult: mechanical ventilator, cardiac arrest EMERGENT Consult: No MD Notified: Yes Date Notified: 11/06/23 Time Notified: 06:42 Method of Notification: Verbal Reason For Visit: INFERIOR WALL STEMI WITH RESP FAILURE REQ. Diagnosis Discharge Diagnosis (1) Cardiopulmonary arrest with successful resuscitation: Status: Acute Code(s): I46.9 - Cardiac arrest, cause unspecified (2) Pulseless ventricular tachycardia: Status: Acute Code(s): I47.29 - Other ventricular tachycardia Plan 1 cardiopulmonary arrest secondary to pulseless ventricular tachycardia from [id number] appears stable at this time, I talked to cardiology about his care today and I discussed his care with family members. 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 It may be necessary in the future to bring the patient back for outpatient repeat catheterization to address the LAD lesion. #3 respiratory arrest with emergent intubation-I talk with pulmonary medicine today, since the patient failed his weaning trial this morning, he was kept on the ventilator under light sedation, patient will probably undergo extubation tomorrow morning. #4 history of pancytopenia-I talked with the patient's oncology office and he has no history of lymphoma, it was just noted that he had pancytopenia which was felt to be possibly due to fatty liver disease. There are no follow-up appointments for the patient to be seen in the oncology department at [facility] here in [facility]. #5 essential hypertension-patient is currently off his home medications for hypertension, he is on a beta-lesly however, this will need to be readdressed after the patient is extubated. Total clinical time spent by myself addressing the patient's medical issues, reviewing all of his data, and collaborating with patient's care team: 50 minutes Medications at Discharge Home Medications aspirin 81 mg tablet,delayed release 81 mg PO DAILY HEART HEALTH 04/28/13 losartan 25 mg tablet 25 mg PO DAILY BLOOD PRESSURE #90 tabs 03/22/23 atenolol 25 mg tablet 12.5 mg PO DAILY BLOOD PRESSURE 07/31/23 tamsulosin 0.4 mg capsule 0.4 mg PO DAILY@1730 30 days #30 caps 08/01/23 nitroglycerin 0.4 mg sublingual tablet 0.4 mg sublingual Q5-15M PRN CHEST PAIN #30 tabs 09/12/23 isosorbide mononitrate 30 mg tablet,extended release 24 hr 30 mg PO DAILY CHEST PAIN #90 tabs 10/24/23 simvastatin 20 mg tablet 20 mg PO QHS CHOLESTEROL #90 tabs 11/11/23 Hospital Course Operations None Procedures Cardiac catheterization (With angioplasty) Summary of Care Provided Minutes Spent on Discharge: 31 Hospital Course: This 82-year-old white male was seen in the emergency room at [facility] with complaints of substernal chest pain, this discomfort was described as pressure-like in quality, initial EKG revealed no STEMI, chest x-ray was unremarkable. Patient began having chest pain while in the emergency room, his was talking to him and he became unresponsive suddenly and stop breathing, CODE BLUE was called, he appeared to be in ventricular tachycardia and was pulseless. He was defibrillated and CPR continued, he received a bolus of amiodarone and finally he became responsive and was able to breathe on his own and appear to be in normal sinus rhythm. Patient with this was then sedated and intubated, cardiology was contacted and the patient was taken to the [facility] for cardiac catheterization. Cardiac catheterization revealed occlusive coronary disease in 3 different areas, 2 areas were able to undergo angioplasty but the third area was not able to be addressed. Patient was then admitted to ICU for further care, the following day he was extubated without difficulty. I had a long discussion with the patient and his family members about how to proceed, I gave him the option of going to a different hospital to have high risk angioplasty or other treatment such as rotablation. Family and the patient decided that this was how they wanted to proceed, I called [facility] and they were able to take the patient without difficulty. On 11/07/2023, patient was seen and examined: On examination he appeared in good health and spirits. Vital signs as documented. Skin warm and dry and without overt rashes. Neck without JVD, neck was supple, trachea midline, thyroid was normal. Lungs clear bilaterally, normal air movement was noted. Heart exam notable for regular rhythm, normal sounds and absence of murmurs, rubs or gallops. Abdomen unremarkable and without evidence of organomegaly, masses, or abdominal aortic enlargement. Bowel sounds are present, abdomen is not distended. Extremities nonedematous, no cyanosis was noted, no clubbing was noted. Neuro: Cranial nerves II through XII are grossly intact, no focal motor deficits were noted, sensation to light touch and pinprick intact, motor exam 5/5 throughout. Psych: Patient is alert and oriented x3, he does not appear anxious or depressed, he does not appear agitated. Patient was transferred to [facility] for further care on 11/07/2023 in stable condition. Weight / BMI Weight Weight: 64.9 kg Body Mass Index (BMI) 21.7 ABG / Lab / Microbiology Data 11/07/23 04:50 11/07/23 04:50 Meaningful Use Info Meaningful Use Meaningful Use Diagnoses (Choose all that apply): AMI AMI/Post PCI/Angioplasty Aspirin given w/in 24hrs of arrival?: Yes ASA at discharge?: Yes Antiplatelet Therapy at Discharge:: Yes Statins at discharge?: Yes Pablito/ARB at discharge?: Yes Beta Lesly at discharge?: Yes Done w/ Acute [place] measure.: Yes Documented LVEF (%): 55 Ischemic Stroke Statin Dosing Therapy Reference: STATIN DOSE THERAPY REFERENCE: * Patients > 75 years receive moderate or high dose statin therapy. * Patients 75 years or YOUNGER should receive HIGH intensity statin dose unless contraindicated. You will be required to document reason for non-treatment if statin daily dose does not meet guidelines. HIGH DOSE STATIN THERAPY DAILY Atorvastatin > than or = to 40 mg Rosuvastatin > than or = to 20 mg Amlodipine + Atorvastatin > than or = to 2.5/40 mg Ezetimibe + Simvastatin 10/80 mg Simvastatin 80mg Discharge Plan Admission Admit Date/Time: 11/06/23 00:43 Attending Provider: Shiv Joyce Primary Care Provider: Radha Olivas Consulting Providers: Vicki Robert; Tavo Arriaga; Morteza Avila; Joseph Nguyễn; Herminio Jay; Clyde Mays; Lulu Morales; Lane Stark; Adrianna Alcazar; Lizbeth Shields; Christopher Mcneil; Craig Parkinson; Inder Montes; Sukh Santos; Danilo Pérez Discharge Orders/Prescriptions Prescriptions: No Action aspirin 81 MG tablet 81 mg PO DAILY atenolol 25 mg tablet 12.5 mg PO DAILY tamsulosin 0.4 mg Capsule 0.4 mg PO DAILY@1730 30 Days Qty: 30 0RF losartan 25 mg tablet 25 mg PO DAILY Qty: 90 3RF nitroglycerin 0.4 mg tablet, sublingual 0.4 mg SL Q5-15M PRN (Reason: CHEST PAIN ) Qty: 30 3RF Rx Instructions: DO NOT EXCEED THREE DOSES PER EPISODE. isosorbide mononitrate 30 mg tablet extended release 24 hr 30 mg PO DAILY Qty: 90 3RF simvastatin 20 mg tablet 20 mg PO QHS Qty: 90 3RF Referrals / Follow Up: Radha Olivas DO [Primary Care Provider] - Disposition Disposition (needs filled in before D/C Order can be placed): Acute Care Hospital Charges/Coding Visit Charges Inpatient E&M: 98348 Disch Hosp >30min
== END 2023-11-07 15:35 | disposition short-term general hospital (02) | DRG 250 ==
LOC: ED 19:45 → ICU 11-06 06:19 → CVS 11-06 06:20
PROVIDERS: Internal Medicine; Internal Medicine Critical Care Medicine; Admitting Provider Specialist; Emergency Provider Emergency Medicine; PCP Internal Medicine; Visit Provider Internal Medicine
DX: I21.4 Non-ST elevation (NSTEMI) myocardial infarction (principal); I46.2 Cardiac arrest due to underlying cardiac condition; D61.818 Other pancytopenia; I47.29 Other ventricular tachycardia; I25.110 Atherosclerotic heart disease of native coronary artery with unstable angina pectoris; I10 Essential (primary) hypertension; F32.A Depression, unspecified; G47.33 Obstructive sleep apnea (adult) (pediatric); E78.2 Mixed hyperlipidemia; F41.9 Anxiety disorder, unspecified; Z79.02 Long term (current) use of antithrombotics/antiplatelets; Z79.82 Long term (current) use of aspirin; Z79.899 Other long term (current) drug therapy; Z86.73 Personal history of transient ischemic attack (TIA), and cerebral infarction without residual deficits; Z87.891 Personal history of nicotine dependence; Z82.49 Family history of ischemic heart disease and other diseases of the circulatory system
CPT/HCPCS: 31500; 36600; 71045; 74018; 80048; 80053; 80061; 82803; 83735; 84100; 84443; 84484; 85025; 85027; 85610; 85730; 92920; 92950; 93005; 93306; 93454; 94002; 94003; 94660; 94668; 94762; 97162; 97802; 97803; 99252; 99285; J7030; J7040; J7050; Q9967; A4216; C1725; C1769; C1887; C1894; G0463; J1327

== ENCOUNTER → 2023-11-29 | Outpatient (CLI) | payer MEDICARE, SELFPAY ==
--- NOTE | 2023-11-29 08:05 | PCM.CR.ITP ---
Diagnosis General Information Admitting Diagnosis: S/P Cardiac Arrest & successful resuscitation, STEMI, PCI w/coronary stenting Secondary Diagnosis: HTN, HLD, Cancer, Personal Learning Style:: Audio/Visual and Written Barriers to Learning: Vision Impairment Stage of change r/t lifestyle modifications:: Action Gave educational material for:: Treating Heart Disease, How The Heart Works, What it means to have Heart Disease, How Coronary Artery Disease is Diagnosed, Heart Procedures, What Heart Medications Do, Risk Factors & Modifications, Living an Active Life, Nutrition (Risks of Malnutrition), Emotions & Heart Disease, Stress Management & Relaxation and Sleep Disorders & Heart Disease Education/Goals Individual Counseling: Initial Assessment: Abnormal Cholesterol Levels, High Blood Pressure and Overweight/Obesity (Malnutrition Risk continuing to lose weight) Cardiac Rehabilitation Goals Personal Goals: Initial Assessment: Improve energy level and Improve muscle strength and endurance Scale for measuring improvement of personal goals Diagnosis & Disease Process Outcomes/Goals: Pt IDs own risk factors & lifestyle modifications by Session 10, Verbalizes symptoms of angina & response by session 3. and Pt independently manages Plan/Interventions: Assist Pt to ID & engage in lifestyle modification to reduce CVD risk, Instruct on individual risk factors, Review symptoms of angina & emergency actions and Review secondary diagnosis & identify educational needs. Safety Referral to Physical Therapy: No Referral to [facility] Case Management: No Fall Risk Assessed:: Yes Assistive Devices:: None Exercise - Initial Assessment Visit Date of Eval: 11/29/23 Session #:: 0 Mets: Pre-: >7 METS for 30 minutes by discharge Physician Prescribed Exercise Modalities: Treadmill, Airdyne and NuStep Frequency: 3x/week for 12 weeks [36 sessions] Intensity: 60-80% of age predicted maximum heart rate reserve Duration: 30 - 45 minutes Current METSs:: 3.0 Target Heart Rate:: 90-104 Resting Blood Pressure: 103/68 EKG Type: Sinus Bradycardia Outcomes & Goals Goals:: Verbalizes understanding of THR, RPE & goal METS by session 6, Documents in home exercise log/reports 30 min aerobic 5 day/wk by DC and Demonstrates accurate pulse taking by DC Intervention & Plan Exercise Program Goals: Instruct on personal THR & RPE, Instruct on MET level & personal MET goal, Show patient to take own pulse /validate performance until accurate and Instruct on home exercise Physical Activity Home Exercise Physical Activity - Home Exercise: Safe Exercise, Warm-up, Self-monitoring, Cool-Down, Home Exercise > 30 min Daily and Sitting Time <3 hours/daily Outcomes & Goals Outcomes/Goals: Demonstrates correct Warm-up/exercise Cool-Down (S3) if = 2.5 METs, Verbalizes symptoms of exercise intolerance by Session 3 (S3) and Demonstrate safe equipment use (S3) & follows exercise prescrition (6) Intervention & Plan Plan/Intervention: Instruct warm-up & cool-down if exercising at > 2 METs, Instruct on symptoms of exercise intolerance & actions to take, Instruct & monitor on saf and Assess intial functional capacity & safety risk Nutrition - Initial Assessment Program Goals Nutrition Program Goals Patient has diagnosis of Hyperlipidemia (ICD E78)?: Yes Visit Date of Eval: 11/29/23 Session #:: 0 (Pre=program evaluation) Cholesterol/Lipids (Other Core Measures) Determine presence & major risk factors that modify LDL goal: Hypertension or hypertensive medication Outcomes/Goals: Pt IDs own risk factors & lifestyle modifications by Session 10, Verbalizes symptoms of angina & response by session 3. and Pt independently manages Intervention/Plan: Instruct on personal lipid levels & lipid goals/NCEP guidelines and Instruct on cholesterol Referral to dietitian:: Yes Diabetes (Other Core Measures) Diabetes Type: Not Applicable Weight Mgt (Other Care) Not Applicable: No Height: 5 ft 8 in Weight:: 135 lb BMI: 20.5 Diagnosis Overweight/Obesity BMI> 30% ICD-10 E66: No Diagnosis High BMI/Morbid Obesity BMI> 35% ICD-10 Z68: No Outcomes/Goals: Pt sets, maintains & shows weight loss goal & trend during rehab Intervention/Plan: Instruct on ideal BMI & set weight loss goal w/patient (Patient reports still losing weight, at risk of malnutrition.) Healthy Eating Habits Will attend diet classes:: Yes Outcomes/Goals:: Consume diet rich in vegs,fruits,whole grain/high fiber,fish,lean meat and Limit sat/trans fats,cholesterol & added salts & sugars Intervention/Plan:: Assess current eating habits Education Gave educational materials for:: Healthy eating Core - Initial Assessment Visit Date of Eval: 11/29/23 Session #:: 0 (pre-program evaluation) Medication Compliance Preventative Medication(s):: Aspirin, Ticagrelor/P2Y12 inhibitor, Statin/lipid and Beta nilda H/O mental health issues: depression, anxiety, or addiction?: No Doesn?t believe in the benefits of treatment?: No Believes medications are unnecessary or harmful?: No Has a concern about medication side effects?: No Expresses concern over the cost of medications?: No Outcomes/Goals: Verbalizes medications,desired effect & common side effects @ DC, Pt self-reports following medication regimen and Keeps card in wallet w/medications listed by DC Interventions/plans: Instruct on medication effects & side effects, Review medication list w/patient every two weeks and Instruct importance of taking meds as ordered & assist problem solving Tobacco Use Tobacco Use: Non-smoker Hypertension Hypertension Diagnosis:: Hypertension ICD-10 I10 Resting Blood Pressure:: 103/68 [employer] Hypertension Guidelines Outcomes/Goals: Able to verbalize/achieve optimal blood pressure <130/80 and Incorporates diet changes & exercise for blood pressure control by DC Interventions/plan: Instruct on optimal blood pressure, hypertension & medications and Instruct on effects of sodium, alcohol, stress, exercise &hypertension Tobacco Cessation Referral Smoking Cessation Referral:: No Individual Education/Counseling:: No Education Schedule Given:: Yes Psychosocial - Initial Assess VIsit Date of Eval: 11/29/23 Session #:: 0 (pre-program evaluation) Not Applicable: No History of previous Mental disease:: Yes History of Emotional Disorders: Anxious and Depression Target Goals Target Goals Psychosocial Test Tool Used:: iMER QOL Cardiac and PHQ-9 Questionnaire phq-9 Severity Referral to Behavioral Health PS - Interventions: Yes: Attend Stress Management Classes and No: Referral to Behavioral Health if PHQ-9 score >9:, No: Referral to [facility] and No: Referral to Physician if PHQ-9 if score is 5-9: Outcomes/Goals: See list Psychosocial Outcomes/Goals:: ID's personal stressors & 2 strategies to manage stress by discharge Intervention/Plan: See List Interventions/Plan:: Assess stressors,coping strategies & signs of derpression on admission, Instruct/assist pt to develop coping & personal stress Mgt strategies, Instruct patient to recognize signs & symptoms of depression and Instruct patient to recog Patient Health Questionnaire PHQ-9 Screening Initial Assessment: 1. Little interest or pleasure in doing things: Not at all 2. Feeling down, depressed, or hopeless: Several days 3. Trouble falling or staying asleep, or sleeping too much: More than half the days 4. Feeling tired or having little energy: Several days 5. Poor appetite or overeating: Not at all 6. Feeling bad about yourself -- or that you are a failure or have let yourself or your family down: Several days 7. Trouble concentrating on things, such as reading the newspaper or watching television: Not at all 8. Moving or speaking so slowly that other people could have noticed. Or the opposite - being so fidgety or restless that you have been moving around a lot more than usual: Not at all 9. Thoughts that you would be better off , or of hurting yourself in some way: Not at all How difficult have these problems made it for you to do your work, take care of things at home, or get along with other people?: Somewhat difficult Total Score: 5 ROLANDA-Q SV Test Statements CAD is a disease of the arteries in the heart: False Examples of risk factors for heart disease: True Angina is chest pain or discomfort: True The benefits of resistance training include: True Eating more meat and dairy products: True Anti-platelet medications such as aspirin are important: True The only effective way to manage stress: False An exercise warm-up slowly increases heart rate: True Prepared, processed foods usually have high sodium: True Depression is common after a heart attack: False The statin medications lower cholesterol: True To control blood pressure, lower the amount of sodium: True If someone gets chest discomfort during walking: False Transfats are partially hydrogenated vegetable oils: True Sleep apnea that is not treated increases the risk: False To control cholesterol, one should become a vegetarian: False Someone knows if he/she is exercising at the right level: True Diabetes cannot be prevented with exercise & health eating: False Stress is a large risk for heart attack: True A diet that can help lower blood pressure is rich in: True Total Score Total Correct Responses: 18 Self-Efficacy 6-Item Scale Initial Assessment: We would like to know how confident you are in doing certain activities. Please select your confidence level for: Fatigue Select Number: 8 Physical Discomfort or Pain Select Number: 9 Emotional Distress Select Number: 7 Other Symptoms or Health Problems Select Number: 8 Different Tasks and Activities Select Number: 8 Medication Select Number: 8 Total Score:: 8 Nutrition Survey Nutrition Survey Instructions Scoring Instructions Nutrition Survey Initial: Have you lost >10 lbs over the past 2 months without trying?: No Are you following a special diet at home for diabetes, low fat, or low salt?: No Are you interested in meeting with a dietitian for help understanding your diet?: No Do you eat less than 3 meals a day?: No Do you eat fatty meats (evans, sausage, ribs, etc), fried foods, desserts, large amounts of salad dressings, margarine, butter, or cheese most days?: No Do you have food allergies? [Enter types in comment field]: No Do you eat in restaurants more than 3 times a week?: No Do you season food with salt, seasoning salt, or garlic salt?: Yes Do you used canned, boxed, frozen meals, or soups, seasoning packets?: Yes Total Score:: 2 Exercise - Final/Discharge Physician Prescribed Exercise Modalities: Treadmill, Airdyne and NuStep Frequency: 3x/week for 12 weeks [36 sessions] Intensity: 60-80% of age predicted maximum heart rate reserve Current METSs:: 3.0 Target Heart Rate:: 90-104 Nutrition - 30-Day Assessment Weight Mgt (Other Care) Height: 5 ft 8 in Weight:: 135 lb BMI: 20.5 Nutrition - 60-Day Assessment Weight Mgt (Other Care) Height: 5 ft 8 in Weight:: 135 lb BMI: 20.5 Core - 30-Day Assessment Visit Session #:: 0 Core - Final Assessment Hypertension Resting Blood Pressure:: 103/68 [employer] Hypertension Guidelines Core - 60-Day Assessment Hypertension Resting Blood Pressure:: 103/68 [employer] Hypertension Guidelines Psychosocial - 30-Day Assess Target Goals Target Goals Referral to Behavioral Health PS - Interventions: Yes: Attend Stress Management Classes and No: Referral to Behavioral Health if PHQ-9 score >9:, No: Referral to [facility] and No: Referral to Physician if PHQ-9 if score is 5-9: Psychosocial - 60-Day Assess Target Goals Target Goals Referral to Behavioral Health PS - Interventions: Yes: Attend Stress Management Classes and No: Referral to Behavioral Health if PHQ-9 score >9:, No: Referral to [facility] and No: Referral to Physician if PHQ-9 if score is 5-9: Psychosocial - 90-Day Assess Target Goals Target Goals Referral to Behavioral Health PS - Interventions: Yes: Attend Stress Management Classes and No: Referral to Behavioral Health if PHQ-9 score >9:, No: Referral to [facility] and No: Referral to Physician if PHQ-9 if score is 5-9: Psychosocial - Final Assessmen Target Goals Target Goals Referral to Behavioral Health PS - Interventions: Yes: Attend Stress Management Classes and No: Referral to Behavioral Health if PHQ-9 score >9:, No: Referral to [facility] and No: Referral to Physician if PHQ-9 if score is 5-9: Nutrition - 90-Day Assessment Weight Mgt (Other Care) Height: 5 ft 8 in Weight:: 135 lb BMI: 20.5 Nutrition - Final Assessment Program Goals Patient has diagnosis of Hyperlipidemia (ICD E78)?: Yes Weight Mgt (Other Care) Height: 5 ft 8 in Weight:: 135 lb BMI: 20.5
--- NOTE | 2023-11-29 08:05 | PCM.CR.HP2 ---
CR - History & Physical General Arrival date:: 11/29/23 Arrival time:: 08:05 Date of Referral:: 11/21/23 Date of CR Evaluation:: 11/29/23 Referring Physician: Dr. Anand Herrmann Primary Diagnosis: S/P Cardiac Arrest, STEMI, PCI w/coronary stenting History of Present Cardiac Event Onset Date Acute Myocardial Infarction within 12 months:: Yes (11/07/2023) PTCA or coronary stenting:: Yes (11/07/2023) Vessel: Mid LAD, RPDA and RCA transfer to [facility] Type of Symptoms:: Cardiac Arrest w/successful resuscitation Interventions with present event:: Heart cath Were there any complications?: Mechanical ventilation Medications Ambulatory Orders ?Medication ?Instructions ?Recorded aspirin 81 mg tablet,delayed 81 mg PO DAILY HEART HEALTH 04/28/13 release losartan 25 mg tablet 25 mg PO DAILY BLOOD PRESSURE #90 03/22/23 tabs tamsulosin 0.4 mg capsule 0.4 mg PO DAILY@1730 30 days #30 08/01/23 caps nitroglycerin 0.4 mg sublingual 0.4 mg sublingual Q5-15M PRN CHEST 09/12/23 tablet PAIN #30 tabs metoprolol succinate 25 mg 25 mg PO QDAY 11/15/23 tablet,extended release 24 hr rosuvastatin 40 mg tablet 40 mg PO QDAY 11/15/23 ticagrelor 90 mg tablet (Brilinta) 90 mg PO BID #180 tabs 11/15/23 Allergies Allergies amoxicillin (From Augmentin) Allergy (Intermediate, Verified 11/27/23 08:03) Rash patient has rash with itching. clavulanic acid (From Augmentin) Allergy (Intermediate, Verified 11/27/23 08:03) Rash patient has rash with itching. ciprofloxacin (From Cipro) Allergy (Verified 11/27/23 08:03) Hives atorvastatin (From Lipitor) Adverse Reaction (Intermediate, Verified 11/27/23 08:03) Myalgias lovastatin (From Mevacor) Adverse Reaction (Intermediate, Verified 11/27/23 08:03) Myalgias lisinopril Adverse Reaction (Mild, Verified 11/27/23 08:03) Cough Sleep Disorder Evaluation Hx of Sleep Apnea: Yes Do you snore loudly (louder than talking or can be heard through closed doors)?: Yes (Used CPAP 20 years ago, lost weight quit using.) Do you often feel tired/ fatigued/ sleepy during daytime?: No Has anyone observed you stop breathing during sleep?: Yes History of Hypertension (for STOP score): Yes STOP Results: Positive Advanced Directives Advanced Directives Power of Inspector Repairer: No Living Will: No Advance Directives Information Provided: Yes Advance Directives on File: No Past Medical History Covid-19 Screening Physicial Symptoms Fever: No Unexplained muscle aches: No Current respiratory symptoms: No Upper respiratory infections symptoms: No Gastro-intestinal symptoms: No Dfk-[id number]-[id number] symptoms: No Other Clinical Concerns Has tested positive for COVID-19 in last 30 days: No Exposure Risk Had contact w/person w/symptoms or Covid-19 (+) last 14 days: No Has High Risk Exposures ID'd by Health dept/Inf Control team: No Pertinent Comorbidities 65 years or older:: Yes Lives in Assisted Living facility:: No Has a chronic lung disease or moderate to severe asthma:: No Has a serious heart condition:: Yes Immunocompromised:: Yes Severely obese (Body Mass Index of 40 or higher):: No Diabetic:: No Has chronic kidney disease undergoing dialysis:: No Has liver disease:: No Past Medical Illness Medical History Non-STEMI (non-ST elevated myocardial infarction) Leukopenia Chest pain Cardiopulmonary arrest with successful resuscitation Pulseless ventricular tachycardia Cyst of skin Wears partial dentures Wears dentures Wears glasses Cancer Anxiety Depression Alcohol use Prostate disease High cholesterol Excessive bleeding Easy bruising History of diverticulitis Former smoker Sleep apnea Shortness of breath on exertion Hoarseness Lymphoma History of stress test Cardiology follow-up encounter History of echocardiogram Chest pain Coronary artery disease Hypertension Thrombocytopenia Anemia Pancytopenia Yeast infection of the skin Pancytopenia Macrocytosis Vitamin D deficiency Iron deficiency Hypercholesterolemia Mixed hyperlipidemia Carotid stenosis Bilateral inguinal hernia without obstruction or gangrene Allergic rhinitis GERD (gastroesophageal reflux disease) Diverticulosis Actinic keratosis Other seborrheic keratosis Gallstones Cyst of left kidney Benign hematuria Memory impairment Kidney stones Back pain Limb weakness Hay fever Abdominal aortic aneurysm (AAA) History of left heart catheterization (LHC) (~10/24/99) Atherosclerotic heart disease of [place] coronary artery without angina pectoris Pure hypercholesterolemia Essential hypertension Adverse drug reaction CAD (coronary artery disease) Coronary atherosclerosis of [place] coronary vessel Mitral valve disorder Premature ventricular contraction ASHLEY (obstructive sleep apnea) Hyperlipidemia Atherosclerotic heart disease of [place] coronary artery without angina pectoris Long-term use of high-risk medication Family history of CVA Past Surgical History Surgical History Stented coronary artery History of cardiac catheterization (11/06/23) Hx of surgical procedure Hx of tonsillectomy History of removal of neck cyst History of cystoscopy History of hernia surgery Hx of appendectomy Family History Summary Family History Father CAD (coronary artery disease) Diabetes Cancer prostate Myocardial infarction Sister CVA (cerebral vascular accident) Mother Emphysema, unspecified COPD (chronic obstructive pulmonary disease) Right heart failure Social History Smoking History Smoking Status: Former smoker (Quit smoking 40 years ago.) Hx Tobacco Use: Yes Hx Smoking Exposure: No Alcohol Use Alcohol Usage: Yes (very rare) Substance Abuse Hx Substance Use: No Occupation Occupation (List type of work in comments):: Retired Hobbies, Recreation, Social Activities Hobbies: Other (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 keep mind sharp) Recreational Activities: I am able to engage in most, but not all activities Social Environment Status Marital Status: Current Living Arrangements Living Environment:: Spouse Children How many children do you have?: 1 (1-son ) Do any of your children live nearby?: Yes ([facility]) Safety Do you feel safe in your surroundings?: Yes Assistance Do you need any assistance at home?: no Review of Systems Review of Systems Hints Review of Present Symptoms: Reports Shortness of Breath with Exertion (some mild shortness of breath), Dizziness/Lightheadedness (even had this prior to this event, sees oncologist next week.), Fatigue (at times), Appetite - Normal, Appetite - Special Diet (Divirticulitis diet.) and Sleep - Normal; Denies Shortness of Breath at Rest, Angina, Heart Arrhythmia/Irregularities or Sexual Changes Pain Is Patient Pain Free?: Yes Pain Location: chest (Related to the CPR compressions still has some soreness.) Risk Factor Assessment Vital Signs Temperature: 97.9 F Respiratory Rate: 14 Pulse Ox: 94 Blood Pressure: 103/69 Pulse Pulse Rate: 94 Pulse Rhythm: Regular Hypertension How long have you been treated?: a long time On medication(s)?: Yes Blood Pressure Sitting - Left Arm: 103/69 Diabetes Nutrition Referral for Diabetes: No Obesity Height: 5 ft 8 in Weight:: 132 lb Weight in Pounds: 132.0 lbs Weight Source: Stated by Patient (recently lost another 3 pounds.) Body Mass Index (BMI): 20.0 Nutritional Referral for Obesity: Yes (Risk of Malnutrition due to current weight loss, continuation.) Physical Inactivity Physical Inactivity: Recreational activity (walking, yard work, working around the house) Exercise Limitations: Lowe back pain Risk Stratification Risk Guidelines: Lowest Risk: Risk Factor for Smoking, Risk Factor for Dyslipidemia, Risk Factor for Diabetes, Risk Factor for Obesity (Risk of Malnutrition noted), Risk Factor for Hypertension, Risk Factor for Sedentary Lifestyle and Risk Factor for Depression For Smoking Smoking Risk Guidelines For Dyslipidemia Dyslipidemia Risk Guidelines For Diabetes Mellitus Diabetes Risk Guidelines For Obesity/Overweight Obesity/Overweight Risk Guidelines For Hypertension Hypertension Risk Guidelines For Sedentary Lifestyle Sedentary Lifestyle Risk Guidelines For Depression Depression Risk Guidelines Family History Family History Father CAD (coronary artery disease) Diabetes Cancer prostate Myocardial infarction Sister CVA (cerebral vascular accident) Mother Emphysema, unspecified COPD (chronic obstructive pulmonary disease) Right heart failure Motivation Motivation to Participate On a scale of 1 to 10, how prepared are you to commit to attending program?: 8 What do you see as barriers to successfully being able to complete the program?: none that know of What do you see as the benefits of succesfully completing the program? In other words, what do you hope to get out of participating in the program?: Getting some strenght back, stamina adn endurance, healthier Are there issues you are dealing with that will interfere with completing the program?: Cytopenia Do you have a spouse or signficant other, family or friends who will help support you to complete the program?: Yes; son and very veery helpful.
[2023-11-29 08:22] VITALS: BP 103/68; BMI 20.5
[2023-11-29 08:33] VITALS: BP 103/69; PULSE 94; RESP 14; TEMP 36.6; O2SAT 94
== END | disposition home or self-care (01) ==
LOC: CR 08:00
PROVIDERS: PCP Internal Medicine; Referring Provider Internal Medicine Cardiovascular Disease; Visit Provider Internal Medicine Cardiovascular Disease
DX: K57.92 Diverticulitis of intestine, part unspecified, without perforation or abscess without bleeding (principal); D61.818 Other pancytopenia; E78.00 Pure hypercholesterolemia, unspecified; I10 Essential (primary) hypertension

== ENCOUNTER 2023-12-13 08:00 | Outpatient (RCR) | payer MEDICARE, SELFPAY ==
[2023-11-29 08:22] VITALS: BMI 20.5
== END 2023-12-13 23:59 ==
LOC: CR 08:00
PROVIDERS: PCP Internal Medicine; Visit Provider Internal Medicine Cardiovascular Disease
DX: Z95.5 Presence of coronary angioplasty implant and graft (principal); Z86.79 Personal history of other diseases of the circulatory system; I71.40 Abdominal aortic aneurysm, without rupture, unspecified; I25.10 Atherosclerotic heart disease of native coronary artery without angina pectoris; E78.00 Pure hypercholesterolemia, unspecified; I10 Essential (primary) hypertension; I49.3 Ventricular premature depolarization
CPT/HCPCS: 93798

== ENCOUNTER 2024-01-10 08:00 | Outpatient (RCR) | payer MEDICARE, SELFPAY ==
[2023-11-29 08:22] VITALS: BMI 20.5
--- NOTE | 2023-12-27 05:41 | CR.ITP_ITS ---
Exercise - Initial Assessment Visit Session #:: 7 Physician Prescribed Exercise Modalities: Treadmill, Schwinn Airdyne AD-7 and SciFit Stepper Nutrition - Initial Assessment Weight Mgt (Other Care) Height: 5 ft 8 in Weight:: 133 lb (RISK OF MALNUTRITION, DIFFICULTY GAINING WEIGHT.) BMI: 20.2 Psychosocial - Initial Assess Target Goals Target Goals Referral to Behavioral Health PS - Interventions: Yes: Attend Stress Management Classes and No: Referral to Behavioral Health if PHQ-9 score >9:, No: Referral to [facility] and No: Referral to Physician if PHQ-9 if score is 5-9: Patient Health Questionnaire PHQ-9 Screening 30-Day Re-eval Assessment: 1. Little interest or pleasure in doing things: Not at all 2. Feeling down, depressed, or hopeless: Not at all 3. Trouble falling or staying asleep, or sleeping too much: Several days 4. Feeling tired or having little energy: Several days 5. Poor appetite or overeating: Not at all 6. Feeling bad about yourself -- or that you are a failure or have let yourself or your family down: Several days 7. Trouble concentrating on things, such as reading the newspaper or watching television: Not at all 8. Moving or speaking so slowly that other people could have noticed. Or the opposite - being so fidgety or restless that you have been moving around a lot more than usual: Not at all 9. Thoughts that you would be better off , or of hurting yourself in some way: Not at all How difficult have these problems made it for you to do your work, take care of things at home, or get along with other people?: Somewhat difficult Total Score: 3 Self-Efficacy 6-Item Scale 30-Day Re-eval Assessment: We would like to know how confident you are in doing certain activities. Please select your confidence level for: Fatigue Select Number: 8 Physical Discomfort or Pain Select Number: 9 Emotional Distress Select Number: 8 Other Symptoms or Health Problems Select Number: 8 Different Tasks and Activities Select Number: 8 Medication Select Number: 8 Total Score:: 8 Nutrition Survey Nutrition Survey Instructions Scoring Instructions Exercise - 30-day Assessment Visit Date of Eval: 12/27/23 Session #:: 7 Physician Prescribed Exercise Modalities: Treadmill, Schwinn Airdyne AD-7 and SciFit Stepper Frequency: 3x/week for 12 weeks [36 sessions] Intensity: 60-80% of age predicted maximum heart rate reserve Duration: 30 - 45 minutes Current METSs:: 3.0 Target Heart Rate:: 104-117 Current RPE:: 11-12 Maximum Excercise HR:: 114 Resting Blood Pressure: 110/62 Maximum Exercise Blood Pressure: 138/72 EKG Type: NSR to sinus tach with rare PVCs. Current Physical Activity or Exercising minutes: 43:20 Outcomes & Goals Goals:: Verbalizes understanding of THR, RPE & goal METS by session 6, Documents in home exercise log/reports 30 min aerobic 5 day/wk by DC and Demonstrates accurate pulse taking by DC Intervention & Plan Exercise Program Goals: Instruct on personal THR & RPE, Instruct on MET level & personal MET goal, Show patient to take own pulse /validate performance until accurate and Instruct on home exercise 30-day Reassessments 30 day Reassessments:: Met Physical Activity Home Exercise Physical Activity - Home Exercise: Safe Exercise, Warm-up, Self-monitoring, Cool-Down, Home Exercise > 30 min Daily and Sitting Time <3 hours/daily Outcomes & Goals Outcomes/Goals: Demonstrates correct Warm-up/exercise Cool-Down (S3) if = 2.5 METs, Verbalizes symptoms of exercise intolerance by Session 3 (S3) and Demonstrate safe equipment use (S3) & follows exercise prescrition (6) Intervention & Plan Plan/Intervention: Instruct warm-up & cool-down if exercising at > 2 METs, Instruct on symptoms of exercise intolerance & actions to take, Instruct & monitor on saf and Assess intial functional capacity & safety risk 30-day Reassessments 30 day Reassessments:: Met Exercise - 60-day Assessment Physician Prescribed Exercise Modalities: Treadmill, Schwinn Airdyne AD-7 and SciFit Stepper Exercise - 90-day Assessment Physician Prescribed Exercise Modalities: Treadmill, Schwinn Airdyne AD-7 and SciFit Stepper Exercise - Final/Discharge Physician Prescribed Exercise Modalities: Treadmill, Schwinn Airdyne AD-7 and SciFit Stepper Nutrition - 30-Day Assessment Program Goals Nutrition Program Goals Patient has diagnosis of Hyperlipidemia (ICD E78)?: Yes Visit Date of Eval: 12/27/23 Session #:: 7 Cholesterol/Lipids (Other Core Measures) Determine presence & major risk factors that modify LDL goal: Hypertension or hypertensive medication and Age men > 45 years; women >/= 55 years Outcomes/Goals: Pt IDs own risk factors & lifestyle modifications by Session 10, Verbalizes symptoms of angina & response by session 3. and Pt independently manages Intervention/Plan: Instruct on personal lipid levels & lipid goals/NCEP guidelines and Instruct on cholesterol Referral to dietitian:: Yes 30-day Reassessments:: Progressing Diabetes (Other Core Measures) Diabetes Type: Not Applicable Weight Mgt (Other Care) Not Applicable: No Height: 5 ft 8 in Weight:: 133 lb (RISK OF MALNUTRITION, DIFFICULTY GAINING WEIGHT.) BMI: 20.2 Diagnosis Overweight/Obesity BMI> 30% ICD-10 E66: No Diagnosis High BMI/Morbid Obesity BMI> 35% ICD-10 Z68: No Outcomes/Goals: Pt sets, maintains & shows weight loss goal & trend during rehab Intervention/Plan: Instruct on ideal BMI & set weight loss goal w/patient 30 day Reassessments:: Progressing Healthy Eating Habits Will attend diet classes:: Yes Outcomes/Goals:: Consume diet rich in vegs,fruits,whole grain/high fiber,fish,lean meat and Limit sat/trans fats,cholesterol & added salts & sugars Intervention/Plan:: Assess current eating habits 30-day Reassessments:: Progressing Education Gave educational materials for:: Healthy eating Nutrition - 60-Day Assessment Weight Mgt (Other Care) Height: 5 ft 8 in Weight:: 133 lb (RISK OF MALNUTRITION, DIFFICULTY GAINING WEIGHT.) BMI: 20.2 Core - 30-Day Assessment Visit Date of Eval: 12/27/23 Session #:: 7 Medication Compliance Preventative Medication(s):: Aspirin, Ticagrelor/P2Y12 inhibitor, Statin/lipid and Beta nilda H/O mental health issues: depression, anxiety, or addiction?: No Doesn?t believe in the benefits of treatment?: No Believes medications are unnecessary or harmful?: No Has a concern about medication side effects?: No Expresses concern over the cost of medications?: No Outcomes/Goals: Verbalizes medications,desired effect & common side effects @ DC, Pt self-reports following medication regimen and Keeps card in wallet w/medications listed by DC Interventions/plans: Instruct on medication effects & side effects, Review medication list w/patient every two weeks and Instruct importance of taking meds as ordered & assist problem solving 30-day Reassessments:: Met Tobacco Use Tobacco Use: Non-smoker Hypertension Hypertension Diagnosis:: Hypertension ICD-10 I10 Resting Blood Pressure:: 110/62 [place] [employer] Hypertension Guidelines Peak Exercise Blood Pressure:: 138/72 Outcomes/Goals: Able to verbalize/achieve optimal blood pressure <130/80 and Incorporates diet changes & exercise for blood pressure control by DC Interventions/plan: Instruct on optimal blood pressure, hypertension & medications and Instruct on effects of sodium, alcohol, stress, exercise &hypertension 30 day Reassessments:: Met Tobacco Cessation Referral Smoking Cessation Referral:: No Individual Education/Counseling:: No Education Schedule Given:: Yes Psychosocial - 30-Day Assess VIsit Date of Eval: 12/27/23 Session #:: 7 Not Applicable: Yes History of previous Mental disease:: No Target Goals Target Goals Psychosocial Test Tool Used:: PHQ-9 Questionnaire phq-9 Severity Referral to Behavioral Health PS - Interventions: Yes: Attend Stress Management Classes and No: Referral to Behavioral Health if PHQ-9 score >9:, No: Referral to [facility] and No: Referral to Physician if PHQ-9 if score is 5-9: Outcomes/Goals: See list Psychosocial Outcomes/Goals:: ID's personal stressors & 2 strategies to manage stress by discharge Intervention/Plan: See List Interventions/Plan:: Assess stressors,coping strategies & signs of derpression on admission, Instruct/assist pt to develop coping & personal stress Mgt strategies, Instruct patient to recognize signs & symptoms of depression and Instruct patient to recog 30-day Reassessments: 30 day Reassessments:: Met Psychosocial - 60-Day Assess Target Goals Target Goals Referral to Behavioral Health PS - Interventions: Yes: Attend Stress Management Classes and No: Referral to Behavioral Health if PHQ-9 score >9:, No: Referral to [facility] and No: Referral to Physician if PHQ-9 if score is 5-9: Outcomes/Goals: See list Psychosocial Outcomes/Goals:: ID's personal stressors & 2 strategies to manage stress by discharge Psychosocial - 90-Day Assess Target Goals Target Goals Referral to Behavioral Health PS - Interventions: Yes: Attend Stress Management Classes and No: Referral to Behavioral Health if PHQ-9 score >9:, No: Referral to [facility] and No: Referral to Physician if PHQ-9 if score is 5-9: Psychosocial - Final Assessmen Target Goals Target Goals Referral to Behavioral Health PS - Interventions: Yes: Attend Stress Management Classes and No: Referral to Behavioral Health if PHQ-9 score >9:, No: Referral to [facility] and No: Referral to Physician if PHQ-9 if score is 5-9: Nutrition - 90-Day Assessment Weight Mgt (Other Care) Height: 5 ft 8 in Weight:: 133 lb (RISK OF MALNUTRITION, DIFFICULTY GAINING WEIGHT.) BMI: 20.2 Nutrition - Final Assessment Weight Mgt (Other Care) Height: 5 ft 8 in Weight:: 133 lb (RISK OF MALNUTRITION, DIFFICULTY GAINING WEIGHT.) BMI: 20.2
[2023-12-27 05:48] VITALS: BP 110/62; BMI 20.2
== END 2024-01-12 23:59 ==
LOC: CR 08:00
PROVIDERS: PCP Internal Medicine; Visit Provider Internal Medicine Cardiovascular Disease
DX: Z95.5 Presence of coronary angioplasty implant and graft (principal); Z86.79 Personal history of other diseases of the circulatory system; I71.40 Abdominal aortic aneurysm, without rupture, unspecified; I25.10 Atherosclerotic heart disease of native coronary artery without angina pectoris; E78.00 Pure hypercholesterolemia, unspecified; I10 Essential (primary) hypertension; I49.3 Ventricular premature depolarization
CPT/HCPCS: 93798

== ENCOUNTER 2024-01-13 13:40 | Emergency (ER) | payer OTHER, SELFPAY ==
[2023-12-27 05:48] VITALS: BMI 20.2
[2024-01-13 13:42] VITALS: BP 90/58; PULSE 79; RESP 16; TEMP 36.6; O2SAT 98; BMI 20.1
--- NOTE | 2024-01-13 15:14 | EDS_ITS ---
HPI History of Present Illness Chief Complaint: Hypotension Narrative Narrative: 83-year-old male presenting with low blood pressures. He states they have steadily getting lower and lower. Patient's status postcardiac arrest on the 11/05/2023. He states he had to be flown to [place] to have stents placed because he is high risk. Patient reports he was started on metoprolol at that point. He states he is also on losartan 25 mg. His only other new medication is Brilinta. Patient states he has been doing cardiac rehab. He is has been able to complete it and he does not feel like he is symptomatic of his low blood pressure. He denies chest pain or shortness of breath. He admits to not drinking enough fluids throughout the day. His states that she will follow-up bottle for him and he will just carry it around. He states that he is making urine. He denies any black or bloody stools. He does admit to losing weight. [facility] Medical History Non-STEMI (non-ST elevated myocardial infarction) Leukopenia Chest pain Cardiopulmonary arrest with successful resuscitation Pulseless ventricular tachycardia Cyst of skin Wears partial dentures Wears dentures Wears glasses Cancer Anxiety Depression Alcohol use Prostate disease High cholesterol Excessive bleeding Easy bruising History of diverticulitis Former smoker Sleep apnea Shortness of breath on exertion Hoarseness Lymphoma History of stress test Cardiology follow-up encounter History of echocardiogram Chest pain Coronary artery disease Hypertension Thrombocytopenia Anemia Pancytopenia Yeast infection of the skin Pancytopenia Macrocytosis Vitamin D deficiency Iron deficiency Hypercholesterolemia Mixed hyperlipidemia Carotid stenosis Bilateral inguinal hernia without obstruction or gangrene Allergic rhinitis GERD (gastroesophageal reflux disease) Diverticulosis Actinic keratosis Other seborrheic keratosis Gallstones Cyst of left kidney Benign hematuria Memory impairment Kidney stones Back pain Limb weakness Hay fever Abdominal aortic aneurysm (AAA) History of left heart catheterization (LHC) (~10/24/99) Atherosclerotic heart disease of [place] coronary artery without angina pectoris Pure hypercholesterolemia Essential hypertension Adverse drug reaction CAD (coronary artery disease) Coronary atherosclerosis of [place] coronary vessel Mitral valve disorder Premature ventricular contraction ASHLEY (obstructive sleep apnea) Hyperlipidemia Atherosclerotic heart disease of [place] coronary artery without angina pectoris Long-term use of high-risk medication Family history of CVA Home Medications ?Medication ?Instructions ?Recorded ?Last Taken ?Type aspirin 81 mg tablet,delayed 81 mg PO DAILY HEART HEALTH 04/28/13 09/24/23 History release losartan 25 mg tablet 25 mg PO DAILY BLOOD PRESSURE #90 03/22/23 07/31/23 Rx tabs tamsulosin 0.4 mg capsule 0.4 mg PO DAILY@1730 30 days #30 08/01/23 Unknown Rx caps nitroglycerin 0.4 mg sublingual 0.4 mg sublingual Q5-15M PRN CHEST 09/12/23 Unknown Rx tablet PAIN #30 tabs ticagrelor 90 mg tablet (Brilinta) 90 mg PO BID #180 tabs 11/15/23 Unknown Rx rosuvastatin 40 mg tablet 40 mg PO QDAY #90 tabs 12/02/23 Unknown Rx Disability Parking Placard #1 ea 12/13/23 Unknown Rx Incentive spirometer #1 ea 12/13/23 Unknown Rx metoprolol succinate 25 mg 25 mg PO QDAY #90 tabs 01/06/24 Unknown Rx tablet,extended release 24 hr Allergy/AdvReac Type Severity Reaction Status Date / Time amoxicillin (From Augmentin) Allergy Intermediate Rash Verified 01/13/24 13:44 clavulanic acid (From Allergy Intermediate Rash Verified 01/13/24 13:44 Augmentin) ciprofloxacin (From Cipro) Allergy Hives Verified 01/13/24 13:44 atorvastatin (From Lipitor) AdvReac Intermediate Myalgias Verified 01/13/24 13:44 lovastatin (From Mevacor) AdvReac Intermediate Myalgias Verified 01/13/24 13:44 lisinopril AdvReac Mild Cough Verified 01/13/24 13:44 Family History Father CAD (coronary artery disease) Diabetes Cancer prostate Myocardial infarction Sister CVA (cerebral vascular accident) Mother Emphysema, unspecified COPD (chronic obstructive pulmonary disease) Right heart failure Other Stented coronary artery Surgical History Stented coronary artery History of cardiac catheterization (11/06/23) Hx of surgical procedure Hx of tonsillectomy History of removal of neck cyst History of cystoscopy History of hernia surgery Hx of appendectomy Social History household members: spouse Smoking Status: Former smoker how long ago did patient quit smokin years ago alcohol intake: current details: rare substance use type: does not use caffeine: Yes Type: coffee Number of servings: 1 ROS ROS ED Constitutional Constitutional ED: Denies chills, fever(s) or sweats Eyes Eyes: Denies blurry vision or change in vision ENT ENT ED: Denies ear pain or sore throat Cardiovascular Cardiovascular: Denies chest pain, palpitations or racing heartbeat Respiratory/Chest Respiratory/Chest: Denies cough, dyspnea or sputum Gastrointestinal Gastrointestinal: Denies abdominal pain, constipation, diarrhea, nausea or vomiting Genitourinary Genitourinary ED: Denies dysuria, hematuria or urinary frequency Musculoskeletal Musculoskeletal: Denies arthralgias, myalgias or neck pain Integumentary Denies abscess, Abrasions or rash Neurologic Neurologic: Denies headache(s), paresthesias or weakness Psychiatric Psychiatric: Denies anxiety, depression, suicidal ideation or suicidal thoughts Endocrine Endocrinology: Denies polydipsia or polyuria EXAM Physical Exam Const Vital Signs: 01/13/24 13:42 01/13/24 15:35 01/13/24 15:41 Temperature 98 F Temperature Source Temporal Pulse Rate 79 88 Pulse Rate [Lying] Pulse Rate [Sitting (for 1 minute prior to obtaining)] Pulse Rate [Standing (for 1 minute prior to obtaining)] Respiratory Rate 16 10 L Respiratory Pattern Normal Blood Pressure 90/58 L 106/63 Blood Pressure [Lying] Blood Pressure [Sitting (for 1 minute prior to obtaining)] Blood Pressure [Standing (for 1 minute prior to obtaining)] Blood Pressure Mean 68 77 Blood Pressure Mean [Lying] Blood Pressure Mean [Sitting (for 1 minute prior to obtaining)] Blood Pressure Mean [Standing (for 1 minute prior to obtaining)] Pulse Ox 98 100 Oxygen Delivery Method Room Air Room Air 01/13/24 16:55 Temperature Temperature Source Pulse Rate Pulse Rate [Lying] 56 L Pulse Rate [Sitting (for 1 minute prior to obtaining)] 70 Pulse Rate [Standing (for 1 minute prior to obtaining)] 83 Respiratory Rate Respiratory Pattern Blood Pressure Blood Pressure [Lying] 109/59 L Blood Pressure [Sitting (for 1 minute prior to obtaining)] 108/62 Blood Pressure [Standing (for 1 minute prior to obtaining)] 119/68 Blood Pressure Mean Blood Pressure Mean [Lying] 75 Blood Pressure Mean [Sitting (for 1 minute prior to obtaining)] 77 Blood Pressure Mean [Standing (for 1 minute prior to obtaining)] 85 Pulse Ox Oxygen Delivery Method Positive well nourished General Appearance ED: [facility] [place] Reports moist mucous membranes Eyes PERRL and EOMs intact bilaterally Chest Wall inspection of chest normal Resp normal respiratory effort and clear to auscultation bilaterally Auscultation: Negative for rales, rhonchi or wheezes Cardio regular rate and regular rhythm Neuro oriented x3 Sensorium / Orientation: alert Motor Exam: strength 5/5 throughout Psych mental status grossly normal Skin no rashes or lesions noted and no wounds MDM MDM MDM Narrative Medical decision making narrative: Patient presenting with asymptomatic hypotension. He states he feels well. He is able to pass cardiac rehab. They have been following his blood pressures and they are now lower than previous. Patient does not have a any complaints. His expresses concern that he may be dehydrated. Differential also includes dysrhythmia, electrolyte abnormalities, anemia, increased blood pressure medication. CBC will be obtained to assess white blood cell count, hemoglobin, platelets. BMP to assess renal function, electrolytes, glucose. High- sensitivity troponin and EKG to assess for ischemia/dysrhythmia. Chest x-ray to rule out any pulmonary causes. Orthostatic vital signs will be obtained. CBC shows leukopenia with a white blood count 3.6. Hemoglobin 9.5 which is near baseline. Platelets low at 85 which is also near baseline. Renal function and electrolytes are normal. Orthostatic vital signs are normal. Chest x-ray interpreted by myself shows no acute process. Radiology interprets as possible small focal infiltrate on the left. Patient's breath sounds are normal. Has no complaints of cough, fever, chills. He is not short of breath. I do not believe he has an infiltrate. Discussed case with Dr. Wilson. and Dr. Herrmann who recommended the patient just discontinue his losartan and continue his metoprolol. Patient discharged home in stable condition. Impression: 1. Hypotension Lab Data Attestation: I reviewed the patient's lab results. Labs: Laboratory Results - last 24 hr 01/13/24 15:39 WBC 2.6 L RBC 3.02 L Hgb 9.5 L Hct 30.1 L MCV 99.7 H MCH 31.5 MCHC 31.6 L RDW Std Deviation 53.1 H RDW Coeff of [place] 14.6 Plt Count 85 L MPV 10.0 Immature Gran % (Auto) 0.400 Neut % (Auto) 42.9 L Lymph % (Auto) 31.3 [place] % (Auto) 23.0 H Eos % (Auto) 2.0 Baso % (Auto) 0.4 Absolute Neuts (auto) 1.1 L Absolute Lymphs (auto) 0.80 L Nucleated RBC % 0 Sodium 136 Potassium 3.7 Chloride 108 H Carbon Dioxide 26.0 Anion Gap 2 L BUN 12 Creatinine 0.98 Estim Creat Clear Calc 49.40 Est GFR (MDRD) Af Amer 94 Est GFR (MDRD) Non-Af 78 BUN/Creatinine Ratio 12.2 Glucose 92 Calcium 9.5 Troponin I High Sens 16 Radiography Diagnostic Testing: Clinical Impression(s) from Imaging Studies Chest X-Ray 01/13/24 15:35 IMPRESSION: Possible small focal left basilar infiltrate. Electronically Signed: Jayro Manzanares DO at 16:13 EDT Reading Location ID and State: [facility] / [place] Tel [phone], Service support , Discharge Plan Triage Chief Complaint: Hypotension ED Provider: Shahid Salgado Dx/Rx/DC Orders Instructions: ED Low Blood Pressure, All Causes Prescriptions: No Action Brilinta 90 mg tablet 90 mg PO BID Qty: 180 3RF aspirin 81 MG tablet 81 mg PO DAILY tamsulosin 0.4 mg Capsule 0.4 mg PO DAILY@1730 30 Days Qty: 30 0RF losartan 25 mg tablet 25 mg PO DAILY Qty: 90 3RF nitroglycerin 0.4 mg tablet, sublingual 0.4 mg SL Q5-15M PRN (Reason: CHEST PAIN ) Qty: 30 3RF Rx Instructions: DO NOT EXCEED THREE DOSES PER EPISODE. rosuvastatin 40 mg tablet 40 mg PO QDAY Qty: 90 3RF (DME) Disability Parking Placard See Rx Instructions .Route .MEDSUPPLY Qty: 1 0RF Rx Instructions: As directed (DME) Incentive spirometer See Rx Instructions .Route .MEDSUPPLY Qty: 1 0RF Rx Instructions: As directed metoprolol succinate 25 mg tablet extended release 24 hr 25 mg PO QDAY Qty: 90 3RF Primary Care Provider: Radha Olivas Referrals: Radha Olivas DO [Primary Care Provider] - Anand Herrmann MD [Med Staff - Active Staff] - 3-5 Days Print Language: Bulgarian Disposition Disposition: Home, Self Care Discharge Date/Time: 01/13/24 18:14
--- NOTE | 2024-01-13 15:35 | RAD_ITS ---
INDICATION: hypotension EXAMINATION/TECHNIQUE: X-RAY - XR Chest 1 View COMPARISON: FINDINGS: LINES/DEVICES: None. LUNGS: Possible focal left basilar infiltrate. No pneumothorax. MEDIASTINUM AND CARDIOVASCULAR STRUCTURES: Cardiac silhouette not enlarged. Central airways and mediastinal contour are unremarkable. BONES AND SOFT TISSUES: Degenerative vertebral changes RAD/Chest 1 View (Portable) IMPRESSION: Possible small focal left basilar infiltrate. Electronically Signed: Jayro Manzanares DO at 16:13 EDT ,
[2024-01-13 15:41] VITALS: BP 106/63; PULSE 88; RESP 10; O2SAT 100
[2024-01-13 15:55] LABS: Absolute Neutrophil Count 1.1 X10^3/uL (2.0-7.7); Basophil# 0.01 X10^3/uL; Basophil% 0.4 % (0-1); Eosinophil# 0.05 X10^3/uL; Hematocrit 30.1 % (40-54); Hemoglobin 9.5 g/dL (13.0-16.5); Lymphocyte % 31.3 % (19-41); Mean Corp Hgb Conc 31.6 g/dL (32-36); Mean Corpuscular Hgb 31.5 pg (27.0-32.0); Mean Corpuscular Volume 99.7 fL (80-94); Monocyte# 0.59 X10^3/uL; NRBC Flagged by Analyzer 0 % (0-5); Neutrophil % 42.9 % (47-70); POSITIVE COUNT YES; Platelet Count 85 K/mm3 (150-450); RBC Distribution Width CV 14.6 % (11.6-14.6); RBC Distribution Width SD 53.1 fl (35.1-43.9); Red Blood Count 3.02 M/mm3 (4.6-6.2); White Blood Count 2.6 K/mm3 (4.4-11.0)
[2024-01-13 16:12] LABS: Anion Gap 2 (5-15); BUN 12 mg/dL (7-18); BUN/Creat Ratio 12.2 RATIO (10-20); Calcium,Total 9.5 mg/dL (8.5-10.1); Chloride 108 mmol/L (98-107); Creatinine, Serum 0.98 mg/dL (0.70-1.30); EST Glomerular Filtration Rate 78 mL/min (>60); Est Glom Filt Rate - Afr Amer 94 mL/min (>60); Glucose 92 mg/dL (74-106); Potassium 3.7 mmol/L (3.5-5.1); Sodium Level 136 mmol/L (136-145); Troponin-I HS 16 pg/mL (3.0-78.0)
[2024-01-13 16:55] VITALS: BP 108/62; BP 109/59; BP 119/68; PULSE 56; PULSE 70; PULSE 83
== END 2024-01-13 18:14 | disposition home or self-care (01) ==
PROVIDERS: Emergency Provider Student in an Organized Health Care Education/Training Program; PCP Internal Medicine; Visit Provider Student in an Organized Health Care Education/Training Program
DX: I95.9 Hypotension, unspecified (principal); I25.10 Atherosclerotic heart disease of native coronary artery without angina pectoris; I25.2 Old myocardial infarction; G47.33 Obstructive sleep apnea (adult) (pediatric); Z95.5 Presence of coronary angioplasty implant and graft; Z87.891 Personal history of nicotine dependence
CPT/HCPCS: 71045; 80048; 84484; 85025; 99285; A4216

== ENCOUNTER 2024-02-12 08:00 | Outpatient (RCR) | payer MEDICARE, SELFPAY ==
[2023-12-27 05:48] VITALS: BMI 20.2
[2024-01-13 00:39] VITALS: BP 110/62
--- NOTE | 2024-01-27 11:49 | PCM.CR.ITP ---
Exercise - Initial Assessment Physician Prescribed Exercise Modalities: Treadmill, Schwinn Airdyne AD-7 and SciFit Stepper Nutrition - Initial Assessment Weight Mgt (Other Care) Height: 5 ft 8 in Weight:: 132 lb BMI: 20.0 Psychosocial - Initial Assess Target Goals Target Goals Patient Health Questionnaire PHQ-9 Screening 60-Day Re-eval Assessment: 1. Little interest or pleasure in doing things: Not at all 2. Feeling down, depressed, or hopeless: Not at all 3. Trouble falling or staying asleep, or sleeping too much: Several days 4. Feeling tired or having little energy: Several days 5. Poor appetite or overeating: Not at all 6. Feeling bad about yourself -- or that you are a failure or have let yourself or your family down: Several days 7. Trouble concentrating on things, such as reading the newspaper or watching television: Not at all 8. Moving or speaking so slowly that other people could have noticed. Or the opposite - being so fidgety or restless that you have been moving around a lot more than usual: Not at all 9. Thoughts that you would be better off , or of hurting yourself in some way: Not at all How difficult have these problems made it for you to do your work, take care of things at home, or get along with other people?: Somewhat difficult Total Score: 3 Self-Efficacy 6-Item Scale 60-Day Re-eval Assessment: We would like to know how confident you are in doing certain activities. Please select your confidence level for: Fatigue Select Number: 8 Physical Discomfort or Pain Select Number: 9 Emotional Distress Select Number: 8 Other Symptoms or Health Problems Select Number: 8 Different Tasks and Activities Select Number: 8 Medication Select Number: 8 Total Score:: 8 Nutrition Survey Nutrition Survey Instructions Scoring Instructions Exercise - 30-day Assessment Physician Prescribed Exercise Modalities: Treadmill, [place] AD-7 and SciFit Stepper Exercise - 60-day Assessment Visit Date of Eval: 01/27/24 Session #:: 21 Physician Prescribed Exercise Modalities: Treadmill, [place] AD-7 and SciFit Stepper Frequency: 3x/week for 12 weeks [36 sessions] Intensity: 60-80% of age predicted maximum heart rate reserve Duration: 30 - 45 minutes Current METSs:: 4.5 Target Heart Rate:: 104-117 Current RPE:: 12 Maximum Excercise HR:: 109 Resting Blood Pressure: 102/50 Maximum Exercise Blood Pressure: 102/50 EKG Type: NSR to ST with occas multifocal PVC's Outcomes & Goals Goals:: Verbalizes understanding of THR, RPE & goal METS by session 6, Documents in home exercise log/reports 30 min aerobic 5 day/wk by DC, Demonstrates accurate pulse taking by DC and Other additional outcome/goals: see below Intervention & Plan Exercise Program Goals: Instruct on personal THR & RPE, Instruct on MET level & personal MET goal, Show patient to take own pulse /validate performance until accurate, Instruct on home exercise and Other additional plan/int 30-day Reassessments 30 day Reassessments:: Met Physical Activity Home Exercise Physical Activity - Home Exercise: Safe Exercise, Warm-up, Self-monitoring, Cool-Down, Home Exercise > 30 min Daily and Sitting Time <3 hours/daily Outcomes & Goals Outcomes/Goals: Demonstrates correct Warm-up/exercise Cool-Down (S3) if = 2.5 METs, Verbalizes symptoms of exercise intolerance by Session 3 (S3), Demonstrate safe equipment use (S3) & follows exercise prescrition (6) and Other: See below Intervention & Plan Plan/Intervention: Instruct warm-up & cool-down if exercising at > 2 METs, Instruct on symptoms of exercise intolerance & actions to take, Instruct & monitor on saf, Assess intial functional capacity & safety risk and Other See below 30-day Reassessments 30 day Reassessments:: Met Exercise - 90-day Assessment Physician Prescribed Exercise Modalities: Treadmill, Schw[place] Airdyne AD-7 and SciFit Stepper Exercise - Final/Discharge Physician Prescribed Exercise Modalities: Treadmill, Schw[place] Airdyne AD-7 and SciFit Stepper Nutrition - 30-Day Assessment Weight Mgt (Other Care) Height: 5 ft 8 in Weight:: 132 lb BMI: 20.0 Nutrition - 60-Day Assessment Program Goals Nutrition Program Goals Patient has diagnosis of Hyperlipidemia (ICD E78)?: Yes Visit Date of Eval: 01/27/24 Session #:: 21 Cholesterol/Lipids (Other Core Measures) Determine presence & major risk factors that modify LDL goal: Hypertension or hypertensive medication, Low HDL cholesterol <40 mg/dL*, Family history of premature CHD in Male < 55 years: female <65 yearsFa and Age men > 45 years; women >/= 55 years Outcomes/Goals: Pt IDs own risk factors & lifestyle modifications by Session 10, Verbalizes symptoms of angina & response by session 3., Pt independently manages and Other Additional Outcomes/Goals: Intervention/Plan: Advocate for lipid panel cholesterol medication if applicable, Instruct on personal lipid levels & lipid goals/NCEP guidelines, Instruct on cholesterol and Other additional plan/int Referral to dietitian:: Yes 30-day Reassessments:: Progressing Reassessment Notes & Comments:: Pt to attend nutrition class Diabetes (Other Core Measures) Diabetes Type: Not Applicable Weight Mgt (Other Care) Height: 5 ft 8 in Weight:: 132 lb BMI: 20.0 Diagnosis Overweight/Obesity BMI> 30% ICD-10 E66: No Diagnosis High BMI/Morbid Obesity BMI> 35% ICD-10 Z68: No Outcomes/Goals: Pt sets, maintains & shows weight loss goal & trend during rehab and Other additional outcomes/goals Intervention/Plan: Instruct on ideal BMI & set weight loss goal w/patient, Assist pt to ID & incorporate diet changes for weight loss by S9, Refer to Structured Weight Loss program as appropriate, Encourage goal of using 250-300dcal per session for weight loss and Other additional plan/interventions 30 day Reassessments:: Progressing Reassessment Notes & Comments:: Pt to attend nutrition class Healthy Eating Habits Will attend diet classes:: Yes Outcomes/Goals:: Consume diet rich in vegs,fruits,whole grain/high fiber,fish,lean meat, Limit sat/trans fats,cholesterol & added salts & sugars and Other additional outcome/goals: Intervention/Plan:: Assess current eating habits and Other Additional plan/interventions 30-day Reassessments:: Progressing Reassessment Notes & Comments:: Pt to attend nutrition class Education Gave educational materials for:: Signs & symptoms of hypoglycemia, Signs & symptoms of hyperglycemia, Relate diabetes to coronary artery disease and Healthy eating Core - 60-Day Assessment Visit Date of Eval: 01/27/24 Session #:: 21 Medication Compliance Preventative Medication(s):: Aspirin, Ticagrelor/P2Y12 inhibitor, Statin/lipid and Beta nilda H/O mental health issues: depression, anxiety, or addiction?: No Doesn?t believe in the benefits of treatment?: No Believes medications are unnecessary or harmful?: No Has a concern about medication side effects?: No Expresses concern over the cost of medications?: No Outcomes/Goals: Verbalizes medications,desired effect & common side effects @ DC, Pt self-reports following medication regimen, Keeps card in wallet w/medications listed by DC and Other additional outcome/goals: Comments:: losartan D/C for low BP Interventions/plans: Instruct on medication effects & side effects, Review medication list w/patient every two weeks, Instruct importance of taking meds as ordered & assist problem solving and Other additional 30-day Reassessments:: Progressing Reassessment Notes & Comments:: losartan D/C for low BP Tobacco Use Tobacco Use: Non-smoker Hypertension Hypertension Diagnosis:: Hypertension ICD-10 I10 Resting Blood Pressure:: 102/50 [place] [employer] Hypertension Guidelines Peak Exercise Blood Pressure:: 102/50 Outcomes/Goals: Able to verbalize/achieve optimal blood pressure <130/80, Incorporates diet changes & exercise for blood pressure control by DC and Other additional outcomes/goals Interventions/plan: Instruct on optimal blood pressure, hypertension & medications, Instruct on effects of sodium, alcohol, stress, exercise &hypertension and Other additional plan/interventions 30 day Reassessments:: Progressing Reassessment Notes & Comments:: losartan D/C for low BP Tobacco Cessation Referral Smoking Cessation Referral:: No Individual Education/Counseling:: No Education Schedule Given:: Yes Psychosocial - 30-Day Assess Target Goals Target Goals Outcomes/Goals: See list Psychosocial Outcomes/Goals:: ID's personal stressors & 2 strategies to manage stress by discharge and Other Additional outcome/goals: Psychosocial - 60-Day Assess VIsit Date of Eval: 01/27/24 Session #:: 21 History of previous Mental disease:: No Target Goals Target Goals Outcomes/Goals: See list Psychosocial Outcomes/Goals:: ID's personal stressors & 2 strategies to manage stress by discharge and Other Additional outcome/goals: Intervention/Plan: See List Interventions/Plan:: Assess stressors,coping strategies & signs of derpression on admission, Instruct/assist pt to develop coping & personal stress Mgt strategies, Refer to Behavioral Health if appropriate, Refer to Physician if appropriate, Instruct patient to recognize signs & symptoms of depression, Instruct patient to recog and Other additional plan/intervention 30-day Reassessments: 30 day Reassessments:: Met Psychosocial - 90-Day Assess Target Goals Target Goals Psychosocial - Final Assessmen Target Goals Target Goals Nutrition - 90-Day Assessment Weight Mgt (Other Care) Height: 5 ft 8 in Weight:: 132 lb BMI: 20.0 Nutrition - Final Assessment Weight Mgt (Other Care) Height: 5 ft 8 in Weight:: 132 lb BMI: 20.0
[2024-01-27 11:59] VITALS: BP 102/50
== END 2024-02-12 23:59 ==
LOC: CR 08:00
PROVIDERS: PCP Internal Medicine; Visit Provider Internal Medicine Cardiovascular Disease
DX: Z95.5 Presence of coronary angioplasty implant and graft (principal); Z86.79 Personal history of other diseases of the circulatory system; I71.40 Abdominal aortic aneurysm, without rupture, unspecified; I25.10 Atherosclerotic heart disease of native coronary artery without angina pectoris; E78.00 Pure hypercholesterolemia, unspecified; I10 Essential (primary) hypertension; I49.3 Ventricular premature depolarization
CPT/HCPCS: 93798

== ENCOUNTER 2024-03-04 08:00 | Outpatient (RCR) | payer MEDICARE, SELFPAY ==
[2024-02-13 00:44] VITALS: BP 102/50; BP 110/62
--- NOTE | 2024-02-28 07:06 | PCM.CR.ITP ---
Exercise - Initial Assessment Physician Prescribed Exercise Modalities: Treadmill, Schwinn Airdyne AD-7 and SciFit Stepper Nutrition - Initial Assessment Weight Mgt (Other Care) Height: 5 ft 8 in Weight:: 129 lb 8 oz BMI: 19.7 Psychosocial - Initial Assess Target Goals Target Goals Patient Health Questionnaire PHQ-9 Screening 90-Day Re-eval Assessment: 1. Little interest or pleasure in doing things: Not at all 2. Feeling down, depressed, or hopeless: Not at all 3. Trouble falling or staying asleep, or sleeping too much: Several days 4. Feeling tired or having little energy: Several days 5. Poor appetite or overeating: Not at all 6. Feeling bad about yourself -- or that you are a failure or have let yourself or your family down: Several days 7. Trouble concentrating on things, such as reading the newspaper or watching television: Not at all 8. Moving or speaking so slowly that other people could have noticed. Or the opposite - being so fidgety or restless that you have been moving around a lot more than usual: Not at all 9. Thoughts that you would be better off , or of hurting yourself in some way: Not at all How difficult have these problems made it for you to do your work, take care of things at home, or get along with other people?: Somewhat difficult Total Score: 3 Self-Efficacy 6-Item Scale 90-Day Re-eval Assessment: We would like to know how confident you are in doing certain activities. Please select your confidence level for: Fatigue Select Number: 8 Physical Discomfort or Pain Select Number: 9 Emotional Distress Select Number: 8 Other Symptoms or Health Problems Select Number: 8 Different Tasks and Activities Select Number: 8 Medication Select Number: 8 Total Score:: 8 Nutrition Survey Nutrition Survey Instructions Scoring Instructions Exercise - 30-day Assessment Physician Prescribed Exercise Modalities: Treadmill, Schwinn Airdyne AD-7 and SciFit Stepper Exercise - 60-day Assessment Physician Prescribed Exercise Modalities: Treadmill, Schwinn Airdyne AD-7 and SciFit Stepper Exercise - 90-day Assessment Visit Date of Eval: 02/28/24 Session #:: 33 Physician Prescribed Exercise Modalities: Treadmill, Schwinn Airdyne AD-7 and SciFit Stepper Frequency: 3x/week for 12 weeks [36 sessions] Intensity: 60-80% of age predicted maximum heart rate reserve Duration: 30 - 45 minutes Current METSs:: 5.6 Target Heart Rate:: 104-117 Current RPE:: 12-13 Maximum Excercise HR:: 96 Resting Blood Pressure: 108/50 Maximum Exercise Blood Pressure: 142/62 EKG Type: NSR to ST with occas multifocal PVC's, rare PAC's Outcomes & Goals Goals:: Verbalizes understanding of THR, RPE & goal METS by session 6, Documents in home exercise log/reports 30 min aerobic 5 day/wk by DC, Demonstrates accurate pulse taking by DC and Other additional outcome/goals: see below Intervention & Plan Exercise Program Goals: Instruct on personal THR & RPE, Instruct on MET level & personal MET goal, Show patient to take own pulse /validate performance until accurate, Instruct on home exercise and Other additional plan/int 30-day Reassessments 30 day Reassessments:: Met Physical Activity Home Exercise Physical Activity - Home Exercise: Safe Exercise, Warm-up, Self-monitoring, Cool-Down, Home Exercise > 30 min Daily and Sitting Time <3 hours/daily Outcomes & Goals Outcomes/Goals: Demonstrates correct Warm-up/exercise Cool-Down (S3) if = 2.5 METs, Verbalizes symptoms of exercise intolerance by Session 3 (S3), Demonstrate safe equipment use (S3) & follows exercise prescrition (6) and Other: See below 30-day Reassessments 30 day Reassessments:: Met Exercise - Final/Discharge Physician Prescribed Exercise Modalities: Treadmill, Schwinn Airdyne AD-7 and SciFit Stepper Nutrition - 30-Day Assessment Weight Mgt (Other Care) Height: 5 ft 8 in Weight:: 129 lb 8 oz BMI: 19.7 Nutrition - 60-Day Assessment Weight Mgt (Other Care) Height: 5 ft 8 in Weight:: 129 lb 8 oz BMI: 19.7 Core - 90 Day Assessment Visit Date of Eval: 02/28/24 Session #:: 33 Medication Compliance Preventative Medication(s):: Aspirin, Ticagrelor/P2Y12 inhibitor, Statin/lipid and Beta nilda H/O mental health issues: depression, anxiety, or addiction?: No Doesn?t believe in the benefits of treatment?: No Believes medications are unnecessary or harmful?: No Has a concern about medication side effects?: No Expresses concern over the cost of medications?: No Outcomes/Goals: Verbalizes medications,desired effect & common side effects @ DC, Pt self-reports following medication regimen, Keeps card in wallet w/medications listed by DC and Other additional outcome/goals: Interventions/plans: Instruct on medication effects & side effects, Review medication list w/patient every two weeks, Instruct importance of taking meds as ordered & assist problem solving and Other additional Tobacco Use Tobacco Use: Non-smoker Hypertension Hypertension Diagnosis:: Hypertension ICD-10 I10 Resting Blood Pressure:: 108/50 [place] [employer] Hypertension Guidelines Peak Exercise Blood Pressure:: 142/62 Outcomes/Goals: Able to verbalize/achieve optimal blood pressure <130/80, Incorporates diet changes & exercise for blood pressure control by DC and Other additional outcomes/goals Interventions/plan: Instruct on optimal blood pressure, hypertension & medications, Instruct on effects of sodium, alcohol, stress, exercise &hypertension and Other additional plan/interventions 30 day Reassessments:: Met Tobacco Cessation Referral Smoking Cessation Referral:: No Individual Education/Counseling:: No Education Schedule Given:: Yes Psychosocial - 30-Day Assess Target Goals Target Goals Psychosocial - 60-Day Assess Target Goals Target Goals Psychosocial - 90-Day Assess VIsit Date of Eval: 02/28/24 Session #:: 33 History of previous Mental disease:: No Target Goals Target Goals Outcomes/Goals: See list Psychosocial Outcomes/Goals:: ID's personal stressors & 2 strategies to manage stress by discharge and Other Additional outcome/goals: Intervention/Plan: See List Interventions/Plan:: Assess stressors,coping strategies & signs of derpression on admission, Instruct/assist pt to develop coping & personal stress Mgt strategies, Refer to Behavioral Health if appropriate, Refer to Physician if appropriate, Instruct patient to recognize signs & symptoms of depression, Instruct patient to recog and Other additional plan/intervention 30-day Reassessments: 30 day Reassessments:: Met Psychosocial - Final Assessmen Target Goals Target Goals Nutrition - 90-Day Assessment Program Goals Nutrition Program Goals Patient has diagnosis of Hyperlipidemia (ICD E78)?: Yes Visit Date of Eval: 02/28/24 Session #:: 33 Cholesterol/Lipids (Other Core Measures) Determine presence & major risk factors that modify LDL goal: Hypertension or hypertensive medication, Low HDL cholesterol <40 mg/dL*, Family history of premature CHD in Male < 55 years: female <65 yearsFa and Age men > 45 years; women >/= 55 years Outcomes/Goals: Pt IDs own risk factors & lifestyle modifications by Session 10, Verbalizes symptoms of angina & response by session 3., Pt independently manages and Other Additional Outcomes/Goals: Intervention/Plan: Advocate for lipid panel cholesterol medication if applicable, Instruct on personal lipid levels & lipid goals/NCEP guidelines, Instruct on cholesterol and Other additional plan/int 30-day Reassessments:: Met Diabetes (Other Core Measures) Diabetes Type: Not Applicable Weight Mgt (Other Care) Height: 5 ft 8 in Weight:: 129 lb 8 oz BMI: 19.7 Diagnosis Overweight/Obesity BMI> 30% ICD-10 E66: No Diagnosis High BMI/Morbid Obesity BMI> 35% ICD-10 Z68: No Outcomes/Goals: Pt sets, maintains & shows weight loss goal & trend during rehab and Other additional outcomes/goals Intervention/Plan: Instruct on ideal BMI & set weight loss goal w/patient, Assist pt to ID & incorporate diet changes for weight loss by S9, Refer to Structured Weight Loss program as appropriate, Encourage goal of using 250-300dcal per session for weight loss and Other additional plan/interventions 30 day Reassessments:: Met Healthy Eating Habits Will attend diet classes:: Yes Outcomes/Goals:: Consume diet rich in vegs,fruits,whole grain/high fiber,fish,lean meat, Limit sat/trans fats,cholesterol & added salts & sugars and Other additional outcome/goals: Intervention/Plan:: Assess current eating habits and Other Additional plan/interventions 30-day Reassessments:: Met Education Gave educational materials for:: Signs & symptoms of hypoglycemia, Signs & symptoms of hyperglycemia, Relate diabetes to coronary artery disease and Healthy eating Nutrition - Final Assessment Weight Mgt (Other Care) Height: 5 ft 8 in Weight:: 129 lb 8 oz BMI: 19.7
[2024-02-28 07:13] VITALS: BP 108/50; BMI 19.7
== END 2024-03-14 23:59 ==
LOC: CR 08:00
PROVIDERS: PCP Internal Medicine; Visit Provider Internal Medicine Cardiovascular Disease
DX: Z95.5 Presence of coronary angioplasty implant and graft (principal); Z86.79 Personal history of other diseases of the circulatory system; I71.40 Abdominal aortic aneurysm, without rupture, unspecified; I25.10 Atherosclerotic heart disease of native coronary artery without angina pectoris; E78.00 Pure hypercholesterolemia, unspecified; I10 Essential (primary) hypertension; I49.3 Ventricular premature depolarization
CPT/HCPCS: 93798

== ENCOUNTER → 2024-05-05 | Outpatient (CLI) | payer MEDICARE, SELFPAY ==
[2024-02-28 07:13] VITALS: BMI 19.7
[2024-04-24 12:22] VITALS: BMI 19.7
--- NOTE | 2024-05-05 07:55 | CDU_ITS ---
Reason For Study: CAROTID STENOSIS Rt. Velocities/BP Lt. Velocities/BP Prox CCA 91.9/15.4 cm/sec. Prox CCA 101.1/23.7 cm/sec. Mid CCA 87.2/17.3 cm/sec. Mid CCA 137.5/24.3 cm/sec. Dist CCA 78.7/16.3 cm/sec. Dist CCA 73.2/20.4 cm/sec. Prox ICA 80.9/24.8 cm/sec. Prox ICA 77.6/18.2 cm/sec. Mid ICA 85.1/24.9 cm/sec. Mid ICA 106.3/33.9 cm/sec. Dist ICA 70.5/24.2 cm/sec. Dist ICA 85.5/30.2 cm/sec. Rt. ICA/CCA = 85.1/87.2=1.0. Lt. ICA/CCA = 106.3/137.5=0.8. Prox ECA 50.6/5.3 cm/sec. Prox ECA 60.0/6.2 cm/sec. Rt. Vert. 38.1/12.5 cm/sec. Lt. Vert. 45.0/16.6 cm/sec. Right Extracranial There is intimal thickening but no significant atherosclerotic plaque noted in the right common carotid artery. There is homogeneous, smooth atherosclerotic plaque noted in the right internal carotid artery. There is intimal thickening but no significant atherosclerotic plaque noted in the right external carotid artery. Antegrade flow is noted in the right vertebral artery. Left Extracranial There is homogeneous, smooth atherosclerotic plaque noted in the left common carotid artery. There is intimal thickening but no significant atherosclerotic plaque noted in the left internal carotid artery. There is homogeneous, smooth atherosclerotic plaque noted in the left external carotid artery. Antegrade flow is noted in the left vertebral artery. Procedure Carotid Duplex [id number]. This is a Carotid Duplex examination using B-mode, color flow and specral Doppler. Exam performed in department. VL/Carotid Duplex Ultrasound Interpretation Summary Mild (<50%) stenosis right extracranial internal carotid. Mild (<50%) stenosis left extracranial internal carotid. Patent and antegrade vertebrals bilaterally. Ordering Physician: Radha Olivas Referring Physician: Radha Olivas Performed By: Barbara Mehta, CARLYN, RVT
== END | disposition home or self-care (01) ==
LOC: CVS 07:55
PROVIDERS: PCP Internal Medicine; Referring Provider Internal Medicine; Visit Provider Internal Medicine
DX: I65.23 Occlusion and stenosis of bilateral carotid arteries (principal)
CPT/HCPCS: 93880

== ENCOUNTER → 2024-12-30 | Outpatient (CLI) | payer MEDICARE, SELFPAY ==
[2024-04-24 12:22] VITALS: BMI 19.7
--- NOTE | 2024-12-30 08:14 | CT_ITS ---
PROCEDURE: ABDOMEN/PELVIS WITH CONTRAST 12/30/2024 REASON FOR EXAM: GROSS HEMATURIA TECHNIQUE: ABDOMEN/PELVIS WITH CONTRAST. Coronal and Sagittal reconstruction series were provided. ORAL CONTRAST TYPE: None. AMOUNT: mL CONTRAST: Isovue-300 VOLUME: 100 mL mL One or more dose reduction techniques were used (e.g., Automated exposure control, adjustment of the mA and/or kV according to patient size, use of iterative reconstruction technique. RADIATION DOSE SUMMARY: CTDlvol: 16.62, 7.80 and 8.44 mGy DLP: 736.06 mGycm COMPARISON: Noncontrast CT abdomen July 31, 2023 FINDINGS: Lung bases: Clear. No consolidating airspace disease or pleural effusion. The liver, gallbladder, spleen, and adrenal glands are unremarkable. Bosniak type 1 cysts are seen in the right and upper pole left kidney. An upper pole left kidney lesion appears partially cystic with no internal enhancement adjacent to a mildly enhancing lesion relatively thin septum demarcating the division of the lesion into a bi lobed cystic lesion. The entire lesion is 18 mm AP. This is worrisome for Bosniak IIF or III; cystic lesion. Bladder: A 16 mm enhancing lesion is seen in the left bladder base. Large prostate impression upon the bladder base is central. Median or paramedian 8 mm cyst is seen in the prostate, believed stable compared to the prior July 2023 exam Bowel: Sigmoid colon wall thickening and multiple diverticula are present. Endoscopy may further evaluate the sigmoid colon. The small intestine is normal caliber and appearance. Appendix: No appendix identified. However, no inflammatory process is seen in the right lower quadrant. Lymph nodes: No lymphadenopathy. Vasculature: 3.2 cm mid to lower abdominal aortic aneurysm. Peritoneum / Retroperitoneum: Definite free fluid or free air not appreciated. Bones: Degenerative disc disease, endplate spondylosis, but no aggressive lesion. CT/Abdomen/Pelvis WITH Contrast IMPRESSION: A worrisome 16 mm enhancing lesion in the left ladder base. Concern for small Bosniak 2 F or possibly Bosniak type 3 left kidney lesion. Simple prostate cystic lesions, stable since July 31, 2023. Impression on bladder base by enlarged prostate. Mild abdominal aortic aneurysm and other findings as above. Reading [facility]
== END | disposition home or self-care (01) ==
LOC: CT 07:49
PROVIDERS: PCP Internal Medicine; Referring Provider Urology; Visit Provider Urology
DX: R31.0 Gross hematuria (principal); N40.1 Benign prostatic hyperplasia with lower urinary tract symptoms
CPT/HCPCS: 74177; Q9967; A4216

== ENCOUNTER 2025-01-06 10:28 | Day surgery (SDC) | payer MEDICARE, SELFPAY ==
[2024-04-24 12:22] VITALS: BMI 19.7
[2025-01-02 12:03] LABS: Absolute Lymphocyte Count 1.11 X10^3/uL (0.83-4.51); Basophil# 0.01 X10^3/uL; Basophil% 0.3 % (0-1); Eosinophil# 0.03 X10^3/uL; Hematocrit 35.8 % (40-54); Hemoglobin 11.7 g/dL (13.0-16.5); Immature Platelet Fraction 5.2 % (1.0-7.9); Lymphocyte # 1.11 X10^3/ul (0.83-4.51); Lymphocyte % 37.8 % (19-41); Mean Corp Hgb Conc 32.7 g/dL (32-36); Mean Corpuscular Volume 97.8 fL (80-94); Mean Platelet Vol. 10.4 fl (6.2-12.0); Monocyte# 0.75 X10^3/uL; Monocyte% 25.5 % (0-10); NRBC Flagged by Analyzer 0 % (0-5); Neutrophil # 1.03 X10^3/uL (2.7-7.7); Neutrophil % 35.1 % (47-70); Platelet Count 104 K/mm3 (150-450); RBC Distribution Width CV 15.2 % (11.6-14.6); RBC Distribution Width SD 54.5 fl (35.1-43.9); RET-HE 33.8 pg (30-35); Red Blood Count 3.66 M/mm3 (4.6-6.2); White Blood Count 2.9 K/mm3 (4.4-11.0)
[2025-01-02 12:09] LABS: International Normalized Ratio 1.1
[2025-01-02 12:10] LABS: Partial Thromboplast Time 41.5 Seconds (24.1-36.2)
[2025-01-02 12:47] LABS: AST(SGOT) 27 U/L (<=37); Alanine Aminotransfer ALT/SGPT 16 U/L (<=46); Albumin, Serum 4.4 g/dL (3.4-4.8); Alkaline Phosphatase 93 U/L (40-129); Anion Gap 10 (5-15); BUN 17 mg/dL (4-19); BUN/Creat Ratio 18.9 RATIO (10-20); Calcium,Total 10.2 mg/dL (7.6-11.0); Chloride 104 mmol/L (98-108); Creatinine, Serum 0.89 mg/dL (0.70-1.20); EST Glomerular Filtration Rate 85 (>60); Globulin 3.5 g/dL (2.2-4.2); Glucose 114 mg/dL (70-99); Protein, Total 7.9 g/dL (5.9-8.4); Sodium Level 140 mmol/L (133-145); Total Bilirubin 0.62 mg/dL (0.00-1.30)
[2025-01-06] VITALS (8 sets, daily range): BP systolic 124–135; BP diastolic 62–76; PULSE 56–65; RESP 16–18; TEMP 36.1–36.6; O2SAT 96–100; BMI 19.2
[2025-01-06] MEDS: Lactated Ringers 1,000 ML 15 ML IV (11:05)
[2025-01-06] MEDS: Cefazolin 2 GM in 0.9% Normal Saline (100mL Bag) 100 ML IV (14:07)
[2025-01-06] MEDS: Ketorolac 15 MG/ML Vial IV (15:25)
== END 2025-01-06 16:20 | disposition home or self-care (01) ==
LOC: SDC 10:28 → AC 10:29
PROVIDERS: Anesthesiology; Internal Medicine Hematology & Oncology; PCP Internal Medicine; Referring Provider Urology; Visit Provider Urology
PROC: 0TBB8ZZ Excision of Bladder, Via Natural or Artificial Opening Endoscopic (ICD-10-PCS; CPT 52235; principal; 2025-01-06 12:35)
DX: C67.9 Malignant neoplasm of bladder, unspecified (principal); N21.0 Calculus in bladder; N13.9 Obstructive and reflux uropathy, unspecified; I10 Essential (primary) hypertension; I25.2 Old myocardial infarction; G47.33 Obstructive sleep apnea (adult) (pediatric); I25.10 Atherosclerotic heart disease of native coronary artery without angina pectoris; Z79.899 Other long term (current) drug therapy; Z87.891 Personal history of nicotine dependence
CPT/HCPCS: 52235; 52317; 00912; 36415; 80048; 80076; 85025; 85045; 85610; 85730; 88305; 88307; 93005; J2405

== ENCOUNTER → 2025-04-26 | Outpatient (CLI) | payer MEDICARE, SELFPAY ==
[2024-04-24 12:22] VITALS: BMI 19.7
== END | disposition home or self-care (01) ==
PROVIDERS: PCP Internal Medicine; Referring Provider Urology; Visit Provider Urology
DX: N39.0 Urinary tract infection, site not specified (principal)
CPT/HCPCS: 87077; 87086; 87088; 87186

== ENCOUNTER → 2025-05-20 | Outpatient (CLI) | payer MEDICARE, SELFPAY ==
[2024-04-24 12:22] VITALS: BMI 19.7
--- NOTE | 2025-05-20 08:55 | CDU_ITS ---
Reason For Study VL/Carotid Duplex Ultrasound
== END | disposition home or self-care (01) ==
LOC: CVS 08:51
PROVIDERS: PCP Internal Medicine; Referring Provider Internal Medicine; Visit Provider Internal Medicine
DX: I65.23 Occlusion and stenosis of bilateral carotid arteries (principal)
CPT/HCPCS: 93880